=== PATIENT | female | born 1985 | race Caucasian/White ===

== ENCOUNTER 2016-08-18 20:44 | Inpatient (IN) | payer OTHER ==
[~2016-08-18] VITALS: Ht 170.2 cm; Wt 59.9 kg
[~2016-08-18 20:44] MED LIST: DEPA250T2 PO; LEVE500 PO; XANA1TAB6 PO
[2016-08-18 20:45] VITALS: BP 121/77; PULSE 108; RESP 16; TEMP 99.7; O2SAT 97
[2016-08-18] MEDS ORDERED: SODIUM CHLOR 0.9% 1000 ML INJ 1,000 ML IV SCH ×2 (21:17→21:19)
--- NOTE | 2016-08-18 21:23 | PD ---
HPI Chief Complaint: Skin Problem Time Seen by Provider: 21:10 Travel History International Travel<30 days: No Contact w/Intl Traveler<30days: No Traveled to known affect area: No History of Present Illness HPI 31-year-old female to history of IV drug abuse presents for evaluation of fevers , skin redness, cough, congestion. Patient reports that she relapsed and used IV methamphetamines 4 days ago, injecting in her right thigh. Since then she's been having fevers as high as 101, increasing skin redness on the medial right thigh and also developing skin redness and tenderness on the lateral right calf. She does also note cough and congestion over the past 4-5 days. Denies any abdominal pain, dysuria, flank pain. She reports that she used a razor to incise the area on the right thigh where she injected. She has no other complaints at this time. PFSH Past Medical History Asthma: No Depression: Yes Heart Rhythm Problems: No Cancer: No Cardiovascular Problems: Yes High Cholesterol: No Chest Pain: Yes (RIGHT SIDED CHEST PAIN) Congestive Heart Failure: No COPD: No Diminished Hearing: No Endocrine: No Genitourinary: No Musculoskeletal: No Neurologic: Yes Psychiatric: Yes Reproductive: No Respiratory: No Immunizations Current: Yes Seizures: Yes Sleep Apnea: No ?: Not LMP: 07/31/16 : 1 Para: 1 Past Surgical History Abdominal Surgery: Yes (APPENDECTOMY ) Appendectomy: Yes (2006) Other Surgery: Yes Social History Alcohol Use: No (OCC) Tobacco Use: Yes (08/01 PPD) Substance Use: Yes (IV DILAUDID, MORPHINE,OXYCODONE,MARIJUANA) Allergies-Medications (Allergen,Severity, Reaction): Coded Allergies: Tramadol (Unverified Allergy, Severe, SEIZURE, 08/18/16) Tylenol (Verified Allergy, Severe, Hives, 08/18/16) VOMITING *MDRO Multi-Drug Resistant Organism (Unverified Adverse Reaction, Unknown , 08/23/15) MRSA (wound) 07/2014 Reported Meds & Prescriptions Reported Meds & Active Scripts Active Keppra (Levetriacetam) 500 Mg Tab 500 Mg PO BID Depakote 250 mg (Divalproex Sodium) 250 Mg Tab 500 Mg PO BID Reported Xanax 1 mg (Alprazolam) Alprazolam 1 mg Tab 2 Tab PO BID Review of Systems Except as stated in HPI: all other systems reviewed are Neg Physical Exam Narrative GENERAL: Well-developed well-nourished female who appears anxious. She is tachycardic, temperature 99.7. SKIN: Warm and dry. Area of erythema, skin induration on the lateral right calf. There is a small amount of central fluctuance. On the medial right lower thigh there is a 1 cm area of ulceration with purulent drainage, tender to palpation. No petechiae, no purpura. HEAD: Atraumatic. Normocephalic. EYES: Pupils equal and round. No scleral icterus. No injection or drainage. ENT: No nasal bleeding or discharge. Mucous membranes pink and moist. NECK: Trachea midline. No JVD. CARDIOVASCULAR: Regular rate and rhythm. No murmur appreciated. RESPIRATORY: No accessory muscle use. Clear to auscultation. Breath sounds equal bilaterally. GASTROINTESTINAL: Abdomen soft, non-tender, nondistended. Hepatic and splenic margins not palpable. MUSCULOSKELETAL: No obvious deformities. Skin as noted above. NEUROLOGICAL: Awake and alert. No obvious cranial nerve deficits. Motor grossly within normal limits. Normal speech. Data Data Last Documented VS Vital Signs Date Time Temp Pulse Resp B/P Pulse Ox O2 Delivery O2 Flow Rate FiO2 08/19/16 01:25 97 18 08/19/16 01:25 108/61 99 08/18/16 20:45 99.7 Room Air Orders Complete Blood Count With Diff (08/18/16 21:17) Comprehensive Metabolic Panel (08/18/16 21:17) Prothrombin Time / Inr (Pt) (08/18/16 21:17) Act Partial Throm Time (Ptt) (08/18/16 21:17) Lactic Acid Sepsis Protocol (08/18/16 21:17) Influenzae A/B Antigen (08/18/16 21:17) Blood Culture (08/18/16 21:17) Chest, Single Ap (08/18/16 21:17) Iv Access Insert/Monitor (08/18/16 21:17) Wound Culture And Gram Stain (08/18/16 21:17) Ed Urine Pregnancytest Poc (08/18/16 21:17) Sodium Chlor 0.9% 1000 Ml Inj (Ns 1000 M (08/18/16 21:17) Vancomycin Inj (Vancomycin Inj) (08/18/16 21:30) Piperacil-Tazo 3.375 Gm Premix (Zosyn 3. (08/18/16 21:30) Lidocai-Epi 1%-1:100,000 Inj (Xylocaine- (08/18/16 21:30) Sodium Chlor 0.9% 1000 Ml Inj (Ns 1000 M (08/18/16 21:19) Morphine Inj (Morphine Inj) (08/18/16 23:15) Ketorolac Inj (Toradol Inj) (08/18/16 23:15) Potassium Chloride (Kcl) (08/18/16 23:45) Admit Order (Ed Use Only) (08/19/16 01:40) Labs Laboratory Tests Test 08/18/16 22:10 White Blood Count 9.2 TH/MM3 Red Blood Count 4.64 MIL/MM3 Hemoglobin 13.5 GM/DL Hematocrit 39.4 % Mean Corpuscular Volume 84.9 FL Mean Corpuscular Hemoglobin 29.1 PG Mean Corpuscular Hemoglobin 34.3 % Concent Red Cell Distribution Width 13.2 % Platelet Count 374 TH/MM3 Mean Platelet Volume 7.6 FL Neutrophils (%) (Auto) 81.1 % Lymphocytes (%) (Auto) 14.5 % Monocytes (%) (Auto) 3.4 % Eosinophils (%) (Auto) 0.5 % Basophils (%) (Auto) 0.5 % Neutrophils # (Auto) 7.4 TH/MM3 Lymphocytes # (Auto) 1.3 TH/MM3 Monocytes # (Auto) 0.3 TH/MM3 Eosinophils # (Auto) 0.0 TH/MM3 Basophils # (Auto) 0.0 TH/MM3 CBC Comment DIFF FINAL Differential Comment Prothrombin Time 11.1 SEC Prothromb Time International 1.0 RATIO Ratio Activated Partial 30.4 SEC Thromboplast Time Sodium Level 130 MEQ/L Potassium Level 3.4 MEQ/L Chloride Level 95 MEQ/L Carbon Dioxide Level 26.0 MEQ/L Anion Gap 9 MEQ/L Blood Urea Nitrogen 13 MG/DL Creatinine 0.89 MG/DL Estimat Glomerular Filtration 74 ML/MIN Rate Random Glucose 100 MG/DL Lactic Acid Level 0.8 mmol/L Calcium Level 8.5 MG/DL Total Bilirubin 0.6 MG/DL Aspartate Amino Transf 16 U/L (AST/SGOT) Alanine Aminotransferase 21 U/L (ALT/SGPT) Alkaline Phosphatase 94 U/L Total Protein 9.5 GM/DL Albumin 3.4 GM/DL MDM Medical Decision Making Medical Screen Exam Complete: Yes Emergency Medical Condition: Yes Medical Record Reviewed: Yes Interpretation(s) CBC unremarkable CMP sodium 130, potassium 3.4 Influenza antigen negative Chest x-ray negative Differential Diagnosis Cellulitis, pneumonia, influenza, bacteremia, endocarditis Narrative Course 31-year-old female who reports that she injected methamphetamines into her medial right thigh for 5 days ago. Since then she's been having fevers as high as 101, increasing area of skin redness on the right thigh and lateral right calf. She is also had a cough and congestion. On initial examination there is a large degree of cellulitis on the lateral right calf as well as a small area of cellulitis, central ulceration on the medial right thigh. A wound culture was performed. She is also tachycardic with a mildly elevated temperature of 99.7. No murmurs appreciated. Plan is for basic lab work, IV fluids, IV vancomycin and Zosyn have been initiated. Blood cultures, wound culture, chest x-ray have been ordered. Lab work is notable for a sodium of 130, potassium 3.4. At this point and the plan is to admit the patient for IV antibiotic therapy for treatment of cellulitis. She is agreeable. Procedures Procedure Narrative INCISION AND DRAINAGE OF ABSCESS: The area was prepped and was sterilely draped. A subcutaneous wheal of 1% Xylocaine with epinephrine with a total number 5 mL was used to anesthetize the area. The area was properly anesthetized. A number 11scalpel was used to make a1 -cm incision across the area of the abscess. Cultures were obtained. The abscess was drained an irrigated with normal saline. Diagnosis Primary Impression: Cellulitis and abscess of leg Additional Impressions: Abscess IV drug abuse Hyponatremia Tachycardia Admitting Information Admitting Physician Requests: Admit Marcus Ruff Aug 18, 2016 21:23
[2016-08-18] MEDS ORDERED: VANCOMYCIN INJ 1,000 MG in SODIUM CHLOR 0.9% 250 ML INJ 250 ML IV ONE (21:30)
[2016-08-18] MEDS ORDERED: PIPERACIL-TAZO 3.375 GM PREMIX 50 ML IV ONE (21:30)
[2016-08-18] MEDS ORDERED: LIDOCAINE 1%/EPINEPHrine 1:100,000 SOLN 20 ML VIAL INFIL ONE (21:30)
--- NOTE | 2016-08-18 21:42 | RADRPT ---
EXAM DATE/TIME: 08/18/2016 21:27 [facility] COMPARISON: No previous studies available for comparison. INDICATIONS : Cough MEDICAL HISTORY : None. SURGICAL HISTORY : None. ENCOUNTER: Initial ACUITY: 4 - 6 days PAIN SCORE: 4/10 LOCATION: Bilateral chest FINDINGS: A single view of the chest demonstrates the lungs to be symmetrically aerated without evidence of mas s, infiltrate or effusion. The cardiomediastinal contours are unremarkable. Osseous structures are intact. CONCLUSION: No evidence of acute cardiopulmonary disease. Kale Orozco MD on August 18, 2016 at 21:41 Board Certified Radiologist. This report was verified electronically.
[2016-08-18 22:29] LABS: AUTOMATED NEUTROPHIL # 7.4 TH/MM3 (1.8-7.7); BASOPHIL % 0.5 % (0.0-2.0); EOSINOPHIL % 0.5 % (0.0-4.0); HEMATOCRIT 39.4 % (35.0-46.0); HEMO FLAGS DIFF FINAL; LYMPH % 14.5 % (9.0-44.0); LYMPHOCYTE # 1.3 TH/MM3 (1.0-4.8); MEAN CELL VOLUME 84.9 FL (80.0-100.0); MEAN CORPUSCULAR HEMOGLOBIN 29.1 PG (27.0-34.0); MEAN CORPUSCULAR HGB CONC 34.3 % (32.0-36.0); MONO % 3.4 % (0.0-8.0); NEUT % 81.1 % (16.0-70.0); PLATELET COUNT 374 TH/MM3 (150-450); RED BLOOD COUNT 4.64 MIL/MM3 (4.00-5.30); RED CELL DISTRIBUTION WIDTH 13.2 % (11.6-17.2); WHITE BLOOD COUNT 9.2 TH/MM3 (4.0-11.0)
[2016-08-18 22:43] LABS: ANION GAP 9 MEQ/L (5-15); AST (GOT) 16 U/L (15-37); BLOOD UREA NITROGEN 13 MG/DL (7-18); CHLORIDE 95 MEQ/L (98-107); GLOMERULAR FILTRATION RATE 74 ML/MIN (>89); POTASSIUM 3.4 MEQ/L (3.5-5.1); SODIUM (NA) 130 MEQ/L (136-145)
[2016-08-18 22:46] LABS: ALKALINE PHOSPHATASE 94 U/L (45-117); ALT (GPT) 21 U/L (10-53); TOTAL BILIRUBIN ADULT 0.6 MG/DL (0.2-1.0)
[2016-08-18 22:48] LABS: APTT (PATIENT) 30.4 SEC (24.3-30.1); PROTHROMBIN TIME - PATIENT 11.1 SEC (9.8-11.6)
[2016-08-18] MEDS ORDERED: KETOROLAC TROMETHAMINE 30 MG/ML (IVP) VIAL IV PUSH ONE (23:15)
[2016-08-18] MEDS ORDERED: MORPHINE SULFATE 4 MG/ML INJ IV PUSH ONE (23:15)
[2016-08-18] MEDS ORDERED: POTASSIUM CHLORIDE 20 MEQ CONTROLLED RELEASE TAB PO ONE (23:45)
--- NOTE | 2016-08-19 00:58 | PD ---
Physical Exam Date Seen by Provider: Aug 19, 2016 Time Seen by Provider: 00:57 Narrative Patient was initially evaluated by the mid-level provider, please refer to the initial history, physical, diagnostic evaluation, and treatment modality plan. Data Data Last Documented VS Vital Signs Date Time Temp Pulse Resp B/P Pulse Ox O2 Delivery O2 Flow Rate FiO2 08/18/16 20:45 99.7 108 16 121/77 97 Room Air Orders Complete Blood Count With Diff (08/18/16 21:17) Comprehensive Metabolic Panel (08/18/16 21:17) Prothrombin Time / Inr (Pt) (08/18/16 21:17) Act Partial Throm Time (Ptt) (08/18/16 21:17) Lactic Acid Sepsis Protocol (08/18/16 21:17) Influenzae A/B Antigen (08/18/16 21:17) Blood Culture (08/18/16 21:17) Chest, Single Ap (08/18/16 21:17) Iv Access Insert/Monitor (08/18/16 21:17) Wound Culture And Gram Stain (08/18/16 21:17) Ed Urine Pregnancytest Poc (08/18/16 21:17) Sodium Chlor 0.9% 1000 Ml Inj (Ns 1000 M (08/18/16 21:17) Vancomycin Inj (Vancomycin Inj) (08/18/16 21:30) Piperacil-Tazo 3.375 Gm Premix (Zosyn 3. (08/18/16 21:30) Lidocai-Epi 1%-1:100,000 Inj (Xylocaine- (08/18/16 21:30) Sodium Chlor 0.9% 1000 Ml Inj (Ns 1000 M (08/18/16 21:19) Morphine Inj (Morphine Inj) (08/18/16 23:15) Ketorolac Inj (Toradol Inj) (08/18/16 23:15) Potassium Chloride (Kcl) (08/18/16 23:45) Labs Laboratory Tests Test 08/18/16 22:10 White Blood Count 9.2 TH/MM3 Red Blood Count 4.64 MIL/MM3 Hemoglobin 13.5 GM/DL Hematocrit 39.4 % Mean Corpuscular Volume 84.9 FL Mean Corpuscular Hemoglobin 29.1 PG Mean Corpuscular Hemoglobin 34.3 % Concent Red Cell Distribution Width 13.2 % Platelet Count 374 TH/MM3 Mean Platelet Volume 7.6 FL Neutrophils (%) (Auto) 81.1 % Lymphocytes (%) (Auto) 14.5 % Monocytes (%) (Auto) 3.4 % Eosinophils (%) (Auto) 0.5 % Basophils (%) (Auto) 0.5 % Neutrophils # (Auto) 7.4 TH/MM3 Lymphocytes # (Auto) 1.3 TH/MM3 Monocytes # (Auto) 0.3 TH/MM3 Eosinophils # (Auto) 0.0 TH/MM3 Basophils # (Auto) 0.0 TH/MM3 CBC Comment DIFF FINAL Differential Comment Prothrombin Time 11.1 SEC Prothromb Time International 1.0 RATIO Ratio Activated Partial 30.4 SEC Thromboplast Time Sodium Level 130 MEQ/L Potassium Level 3.4 MEQ/L Chloride Level 95 MEQ/L Carbon Dioxide Level 26.0 MEQ/L Anion Gap 9 MEQ/L Blood Urea Nitrogen 13 MG/DL Creatinine 0.89 MG/DL Estimat Glomerular Filtration 74 ML/MIN Rate Random Glucose 100 MG/DL Lactic Acid Level 0.8 mmol/L Calcium Level 8.5 MG/DL Total Bilirubin 0.6 MG/DL Aspartate Amino Transf 16 U/L (AST/SGOT) Alanine Aminotransferase 21 U/L (ALT/SGPT) Alkaline Phosphatase 94 U/L Total Protein 9.5 GM/DL Albumin 3.4 GM/DL [facility] Medical Record Reviewed: Yes Supervised Visit with TASHA: Yes Procedures Procedure Narrative An ultrasound-guided IV was placed in the left upper extremity using a linear probe. I placed a 20-gauge, 1.88 inch, ultrasound-guided IV in the left upper extremity. There is good blood return and the IV flowed easily. The patient tolerated the procedure without difficulty and there was no obvious contraindications. Diagnosis Primary Impression: Cellulitis and abscess of leg Additional Impressions: IV drug abuse Abscess Hyponatremia Tachycardia Sushant Glez MD Aug 19, 2016 00:58
[2016-08-19 01:25] VITALS: BP 108/61; PULSE 89; RESP 18; O2SAT 99
--- NOTE | 2016-08-19 02:16 | HHI.HP ---
[facility] No Primary Care Physician Admission Diagnosis Cellulitis, IVDU, abscess Diagnoses: Chief Complaint: Infection to right outer lower leg and right inner knee Travel History International Travel<30 Days: No Contact w/Intl Traveler <30 Da: No Traveled to Known Affected Are: No History of Present Illness 31-year-old female with a history of seizures but currently not on any medications, and IVDA presented to the ED with complaints of an abscess to the right outer calf and right inner thigh. Patient states 5 days ago she injected meth into her thigh and 2 days ago she had these abscess form on her leg. She lanced open the abscess on her right inner thigh herself in today because she began to have fevers of 101 at home with associated chills. Upon admission temperature 99.7. She states this has happened to her in the past when she has injected meth and she does not do it routinely. She does admit to routinely injecting Dilaudid but states she has never gotten abscesses from it. Patient does have a history of MRSA. She denies any chest pain or shortness of breath. Review of Systems Constitutional: COMPLAINS OF: Fever, Chills Past Family Social History Past Medical History Seizures IVDA Past Surgical History Appendectomy Reported Medications Reported Meds & Active Scripts Active Keppra (Levetriacetam) 500 Mg Tab 500 Mg PO BID Depakote 250 mg (Divalproex Sodium) 250 Mg Tab 500 Mg PO BID Reported Xanax 1 mg (Alprazolam) Alprazolam 1 mg Tab 2 Tab PO BID Allergies: Coded Allergies: Tramadol (Unverified Allergy, Severe, SEIZURE, 08/18/16) Tylenol (Verified Allergy, Severe, Hives, 08/18/16) VOMITING *MDRO Multi-Drug Resistant Organism (Unverified Adverse Reaction, Unknown , 08/23/15) MRSA (wound) 07/2014 Family History Mom: [place] Social History Tobacco use: 12ppd Alcohol use: Denies Illicit drug use: IV Dilaudid Physical Exam Vital Signs Vital Signs Date Time Temp Pulse Resp B/P Pulse Ox O2 Delivery O2 Flow Rate FiO2 08/19/16 01:25 97 18 08/19/16 01:25 89 18 108/61 99 08/18/16 20:45 99.7 108 16 121/77 97 Room Air Physical Exam GENERAL: This is a well-nourished, well-developed patient, in no apparent distress. SKIN: Right inner thigh cellulitis with erythema and purulent drainage. Right outer calf graft was misael, I&D preformed by ER. HEAD: Atraumatic. Normocephalic. EYES: Pupils equal round and reactive. ENT: Nose without bleeding, purulent drainage or septal hematoma. Airway patent. NECK: Trachea midline. No JVD CARDIOVASCULAR: Regular rate and rhythm without murmurs, gallops, or rubs. RESPIRATORY: Clear to auscultation. Breath sounds equal bilaterally. No wheezes , rales, or rhonchi. GASTROINTESTINAL: Abdomen soft, non-tender, nondistended. No guarding. MUSCULOSKELETAL: Extremities without clubbing, cyanosis, or edema. No joint tenderness, effusion, or edema noted. No calf tenderness. NEUROLOGICAL: Awake and alert. Motor and sensory grossly within normal limits. Normal speech. Laboratory Laboratory Tests Test 08/18/16 22:10 White Blood Count 9.2 Red Blood Count 4.64 Hemoglobin 13.5 Hematocrit 39.4 Mean Corpuscular Volume 84.9 Mean Corpuscular Hemoglobin 29.1 Mean Corpuscular Hemoglobin 34.3 Concent Red Cell Distribution Width 13.2 Platelet Count 374 Mean Platelet Volume 7.6 Neutrophils (%) (Auto) 81.1 Lymphocytes (%) (Auto) 14.5 Monocytes (%) (Auto) 3.4 Eosinophils (%) (Auto) 0.5 Basophils (%) (Auto) 0.5 Neutrophils # (Auto) 7.4 Lymphocytes # (Auto) 1.3 Monocytes # (Auto) 0.3 Eosinophils # (Auto) 0.0 Basophils # (Auto) 0.0 CBC Comment DIFF FINAL Differential Comment Prothrombin Time 11.1 Prothromb Time International 1.0 Ratio Activated Partial 30.4 Thromboplast Time Sodium Level 130 Potassium Level 3.4 Chloride Level 95 Carbon Dioxide Level 26.0 Anion Gap 9 Blood Urea Nitrogen 13 Creatinine 0.89 Estimat Glomerular Filtration 74 Rate Random Glucose 100 Lactic Acid Level 0.8 Calcium Level 8.5 Total Bilirubin 0.6 Aspartate Amino Transf 16 (AST/SGOT) Alanine Aminotransferase 21 (ALT/SGPT) Alkaline Phosphatase 94 Total Protein 9.5 Albumin 3.4 Date/Time Procedure Status Source Growth 08/18/16 22:10 Aerobic Blood Culture Received Blood Peripheral Pending 08/18/16 22:10 Anaerobic Blood Culture Received Blood Peripheral Pending 08/18/16 22:00 Influenza Types A,B Antigen (RIK) - Final Complete Nasal Aspirate NEGATIVE FOR FLU A AND B ANTIGEN.... 08/18/16 21:45 Gram Stain Received Wound Leg Pending 08/18/16 21:45 Wound Culture Received Wound Leg Pending Result Diagram: 08/18/16 2210 08/18/162209 Imaging Last Impressions Chest X-Ray 08/18/162116 Signed Impressions: Service Date/Time: July 21:27 - CONCLUSION: No evidence of acute cardiopulmonary disease. Kale Orozco MD Assessment and Plan Problem List: (1) Cellulitis and abscess of leg ICD Code: L02.419 Status: Acute (2) IV drug user ICD Code: F19.90 Status: Chronic Assessment and Plan 31-year-old female with a history of seizures but not currently on any medications and IVDA presented with: Cellulitis and abscess of the leg -I&D of right outer calf abscess performed by ED physician -Vancomycin IV -We will order pain medication as needed. -Blood and wound cultures pending -Contact isolation for history of MRSA IVDA -Encouraged to quit DVT prophylaxis: SCDs [id number] interaction performed in 0145 on 08/19/16. Discussed patient care with Dr. Castro The exam, history, and the medical decision-making described in the above note were completed with the assistance of the mid-level provider. I reviewed and agree with the findings presented. I attest that I had a [id number] encounter with the patient on the same day, and personally performed and documented my assessment and findings in the medical record. The patient is a 31-year-old female IV drug user who relapsed. She developed an abscess on the right lower inner thigh which segments by herself. She developed the much larger abscess on the lateral side of the leg which was draining the emergency room. She has significant associated cellulitis. On exam:GENERAL: Disheveled female in no apparent distress. CARDIOVASCULAR: Normal rate and regular rhythm. Could not appreciate a murmur SKIN: Right inner thigh above the knee there is a dime size ulcer. On the lateral side of the right leg, abscess s/p I&D with large area of cellulitis. RESPIRATORY: Good respiratory efforts. Breath sounds equal and clear to auscultation bilaterally. GASTROINTESTINAL: Abdomen soft, non-tender, non-distended. Normal active bowel sounds MUSCULOSKELETAL: Extremities without cyanosis, or edema. NEURO: Alert & Oriented x4 to person, place, time, situation. Moves all ext x4 PSYCH: Appropriate mood and affect. A/P: Abscess and cellulitis of the right lower extremity in this IV drug user. - Continue vancomycin. Patient has a history of MRSA. - Follow blood cultures and wound cultures. - Plan detailed as above. Discussed Condition With Patient and Dr. Castro Physician Certification 2 Midnight Certification Type: Admission for Inpatient Services Order for Inpatient Services The services are ordered in accordance with Medicare regulations or non- Medicare payer requirements, as applicable. In the case of services not specified as inpatient-only, they are appropriately provided as inpatient services in accordance with the 2-midnight benchmark. Estimated LOS (days): 3 days is the estimated time the patient will need to remain in the hospital, assuming treatment plan goals are met and no additional complications. Post-Hospital Plan: Home Camila Licea Aug 19, 2016 02:16 Carol Castro MD Aug 19, 2016 03:56
[2016-08-19] MEDS ORDERED: NALOXONE HCL 0.4 MG/ML AMP IV PRN (02:30)
[2016-08-19] MEDS ORDERED: SODIUM CHLORIDE 0.9% FLUSH 5 ML FLUSH FLUSH PRN (02:30)
[2016-08-19] MEDS ORDERED: ONDANSETRON HCL 4 MG/2 ML VIAL IVP PRN (02:30)
[2016-08-19] MEDS ORDERED: Vancomycin Consult Pharmacy 1 EA OTHER SCH (02:30)
[2016-08-19 03:57] LABS: AUTOMATED NEUTROPHIL # 6.3 TH/MM3 (1.8-7.7); BASOPHIL # 0.1 TH/MM3 (0-0.2); BASOPHIL % 0.8 % (0.0-2.0); EOSINOPHIL # 0.1 TH/MM3 (0-0.4); EOSINOPHIL % 0.8 % (0.0-4.0); HEMATOCRIT 31.9 % (35.0-46.0); HEMO FLAGS DIFF FINAL; LYMPH % 24.3 % (9.0-44.0); LYMPHOCYTE # 2.4 TH/MM3 (1.0-4.8); MEAN CELL VOLUME 85.7 FL (80.0-100.0); MEAN CORPUSCULAR HEMOGLOBIN 29.2 PG (27.0-34.0); MEAN CORPUSCULAR HGB CONC 34.1 % (32.0-36.0); MONO % 9.2 % (0.0-8.0); NEUT % 64.9 % (16.0-70.0); PLATELET COUNT 303 TH/MM3 (150-450); RED BLOOD COUNT 3.72 MIL/MM3 (4.00-5.30); RED CELL DISTRIBUTION WIDTH 12.7 % (11.6-17.2); WHITE BLOOD COUNT 9.7 TH/MM3 (4.0-11.0)
[2016-08-19] MEDS ORDERED: Vancomycin Consult Pharmacy 1 EA XX SCH (04:00)
[2016-08-19] MEDS ORDERED: DEPA250T2 PO (04:32)
[2016-08-19] MEDS ORDERED: XANA2TAB2 PO (04:32)
[2016-08-19] MEDS ORDERED: LEVE500 PO (04:32)
[2016-08-19] MEDS ORDERED: VANCOMYCIN INJ 1,000 MG in SODIUM CHLOR 0.9% 250 ML INJ 250 ML IV SCH (05:00)
[2016-08-19] MEDS: HEPARIN SODIUM - SQ 10,000 UNITS/ML VIAL SQ SCH ×2 (05:25→17:00)
--- NOTE | 2016-08-19 08:49 | HHI.PR ---
Subjective Remarks had a low grade fever earlier. complaining of pain to the right lower extremity. Objective Vitals Vital Signs Date Time Temp Pulse Resp B/P Pulse Ox O2 Delivery O2 Flow Rate FiO2 08/19/16 01:25 97 18 08/19/16 01:25 89 18 108/61 99 08/18/16 20:45 99.7 108 16 121/77 97 Room Air Result Diagram: 08/19/16 0345 08/19/16 0345 Imaging Last Impressions Chest X-Ray 08/18/167 Signed Impressions: Service Date/Time: July 21:27 - CONCLUSION: No evidence of acute cardiopulmonary disease. Kale Orozco MD Objective Remarks GENERAL: This is a well-nourished, well-developed patient, in no apparent distress. CARDIOVASCULAR: Regular rate and regular rhythm without murmurs, gallops, or rubs. RESPIRATORY: Clear to auscultation. Breath sounds equal bilaterally. No wheezes , rales, or rhonchi. GASTROINTESTINAL: Abdomen soft, non-tender, nondistended. Normal, active bowel sounds MUSCULOSKELETAL: Extremities without clubbing, cyanosis, or edema. NEURO: Alert & Oriented x4 to person, place, time, situation. Moves all ext x4 skin; cellulitis/ abscess of the right inner thigh and right leg Procedures I/R of the right leg abscess- in ER Medications and IVs Current Medications Sodium Chloride 1,000 ml @ 1,000 mls/hr Q1H IV Last administered on 08/19/16 01:11; Start 08/18/16 at 21:17; Stop 08/18/16 at 22:16; Status DC Vancomycin HCl 1000 mg/Sodium Chloride 250 ml @ 250 mls/hr ONCE ONCE IV Last administered on 08/19/16 02:01; Start 08/18/16 at 21:30; Stop 08/18/16 at 22:29 ; Status DC Piperacillin Sod/ Tazobactam Sod (Zosyn 3.375 Gm Premix) 50 ml @ 100 mls/hr ONCE ONCE IV Last administered on 08/19/16 01:11; Start 08/18/16 at 21:30; Stop 08/18/16 at 21:59; Status DC Lidocaine/ Epinephrine 30 ml 30 ml ONCE ONCE INFIL Last administered on 02:02; Start 08/18/16 at 21:30; Stop 08/18/16 at 21:31; Status DC Sodium Chloride (NS 1000 ml Inj) 1,000 ml @ 1,000 mls/hr Q1H IV Last administered on 08/19/16 01:11; Start 08/18/16 at 21:19; Stop 08/18/16 at 22:18 ; Status DC Morphine Sulfate (Morphine Inj) 3 mg ONCE ONCE IV PUSH Last administered on 01:23; Start 08/18/16 at 23:15; Stop 08/18/16 at 23:16; Status DC Ketorolac Tromethamine (Toradol Inj) 30 mg ONCE ONCE IV PUSH Last administered on 08/19/16 01:23; Start 08/18/16 at 23:15; Stop 08/18/16 at 23:16 ; Status DC Potassium Chloride (KCl) 40 meq ONCE ONCE PO Last administered on 08/19/16 02 :02; Start 08/18/16 at 23:45; Stop 08/18/16 at 23:48; Status DC IV Flush (NS Flush) 2 ml UNSCH PRN FLUSH FLUSH AFTER USING IV ACCESS; Start at 02:30 IV Flush (NS Flush) 2 ml BID FLUSH ; Start 08/19/16 at 09:00 Ondansetron HCl (Zofran Inj) 4 mg Q6H PRN IVP NAUSEA OR VOMITING; Start at 02:30 Naloxone HCl 0.4 mg 0.4 mg UNSCH PRN IV SEE LABEL COMMENTS; Start 08/19/16 at 02:30 Pharmacy Profile Note 0 ml @ 0 mls/hr UNSCH OTHER ; Start 08/19/16 at 02:30; Stop 08/19/16 at 04:11; Status DC Pharmacy Profile Note (Vancomycin Consult Pharmacy) 0 ml @ 0 mls/hr UNSCH XX ; Start 08/19/16 at 04:00 Ketorolac Tromethamine 30 mg 30 mg Q6H PRN IVP BREAKTHROUGH PAIN; Start at 04:00 Vancomycin HCl/ Sodium Chloride (Vancomycin Inj/ NS 250 ml Inj) 250 ml @ 250 mls/hr Q12H IV ; Start 08/19/16 at 05:00; Stop 08/19/16 at 05:00; Status DC Heparin Sodium (Porcine) (Heparin Inj) 5,000 units Q12H SQ Last administered on 08/19/16t 05:25; Start 08/19/16 at 05:00 Oxycodone HCl 5 mg 5 mg Q4H PRN PO PAIN GREATER THAN 5; Start 08/19/16 at 04:00 Vancomycin HCl/ Sodium Chloride (Vancomycin Inj/ NS 500 ml Inj) 513 ml @ 250 mls/hr Q18H IV ; Start 08/19/16 at 14:00 Miscellaneous Information SPECIFIC LAB TO BE MARK... ONCE ONCE XX ; Start at 01:45; Stop 08/21/16 at 01:46 A/P Assessment and Plan A/P - cellulitis/ abscess of the right lower extremity with recent IV drug injection- s/p I/D in ER continue with IV Abx and pain control-follow the cultures will consult ID , general surgery and wound care counselled on drug abuse cessation. Leti Mota MD Aug 19, 2016 08:48
[2016-08-19] MEDS: SODIUM CHLORIDE 0.9% FLUSH 5 ML FLUSH FLUSH SCH ×2 (09:00→22:08)
[2016-08-19] MEDS: PIPERACIL-TAZO 3.375 GM PREMIX 50 ML IV SCH ×2 (10:59→19:00)
[2016-08-19 14:48] VITALS: BP 120/64; PULSE 88; RESP 20; TEMP 98.7; O2SAT 100
[2016-08-19] MEDS: DIVALPROEX SODIUM DELAYED RELEASE 250 MG TAB PO SCH ×2 (14:53→21:00)
[2016-08-19] MEDS: levETIRAcetam 500 MG TAB PO SCH ×2 (14:53→22:05)
--- NOTE | 2016-08-19 15:06 | MB ---
cc: RAVEN SWIFT MD, FRANKLYN F. MD DATE OF CONSULTATION: 08/19/2016 REASON FOR CONSULTATION Cellulitis/abscess of the right lower extremity at site of IV drug ejection. HISTORY OF PRESENT ILLNESS This is a 31-year-old white female who was admitted to the hospital with pain and redness and swelling of her right leg at the calf and also at the inner distal thigh. The patient reports that she injected IV drugs into her leg and two days later she developed this swelling and redness. This led to her having difficulty ambulating and because of the significant pain she presented to the emergency department for evaluation. She is reported to have tried to drain the leg with a razor to incise the area where she injected. She also reportedly had temperature elevation with fever of 101 degrees. The patient is noted to have used IV methamphetamines four days ago. She tells me that she tried to inject into the r. leg and felt that she might not have been in a vein and therefore she abandoned the injection and did not make further attempts. She is complaining of pain in the leg and wants increased pain medication. She states that she had some mild chills but she denies other symptoms including abdominal pain, nausea or vomiting. She tells me that she has had several skin lesions pop up on the skin over the past several weeks and that every time she would get a little bump in the skin it turns into a scab, but she at times tries to break the skin to allow the lesions to drain. PAST MEDICAL HISTORY 1. Depression. 2. Seizures. 3. History of appendectomy in 2006. 4. IV drug abuse. ALLERGIES 1. TRAMADOL. 2. TYLENOL. History of MRSA infection of the neck in July 2014. MEDICATIONS 1. Vancomycin. 2. Piperacillin/tazobactam. 3. Oxycodone 5 mg p.r.n. SOCIAL HISTORY The patient smokes half-a-pack of cigarettes a day. IV drug abuse. Use of marijuana, morphine and oxycodone. Denies alcohol. The patient reports that she has been stressed by her ex-boyfriend having of endocarditis a few months ago. FAMILY HISTORY Noncontributory. PHYSICAL EXAMINATION GENERAL: This is a slender well-developed female in no acute distress. She appears anxious. VITAL SIGNS: Temperature 99.7, blood pressure 108/61, respirations 18, heart rate 97. HEENT: Head atraumatic. Extraocular movements grossly intact. Pupils reactive to light without icterus. Oropharynx moist mucosa without lesions. NECK: Supple without adenopathy. LUNGS: Clear breath sounds bilateral. HEART: Regular rate and rhythm. No murmurs, rubs or gallops. ABDOMEN: Bowel sounds present, soft, nontender. RECTAL: Not performed. EXTREMITIES: The right calf is markedly swollen and very tender and has erythema posteriorly where drainage was performed of the calf. The patient also has redness at the inner distal right thigh and is tender on palpation. She also has multiple excoriated lesions of the extremities including the arms. SKIN: Significant for multiple excoriated lesions. No discrete rash. NEUROLOGIC: Nonfocal. PSYCHIATRIC: The patient appears very anxious and irritable. LABORATORY DATA WBC 9.7, platelets 303, hemoglobin 10.9, 64% neutrophils, 24% lymphocytes, 9% monocytes. Creatinine 0.7, BUN 8, sodium 139. Liver function tests within normal limits. IMPRESSION 1. Abscess of the right calf. 2. Sepsis indicated by fever, elevated heart rate, in patient with abscess secondary to IV drug use. 3. History of MRSA. RECOMMENDATIONS 1. Continue vancomycin. 2. Continue piperacillin/tazobactam. 3. Monitor clinical status. 4. Monitor the cultures for adjustment of antibiotics. Thank you for this consultation. The patient's progress will be monitored and further recommendations will be given on followup. Steve Barrera MD FD/SANDRA /2:03 PM /2:51 PM JOSIAS
[2016-08-19] MEDS: ALPRAZolam 1 MG TAB PO PRN (16:00)
[2016-08-19] MEDS: VANCOMYCIN INJ 1,300 MG in SODIUM CHLORID 0.9% 500 ML INJ 500 ML IV SCH (16:00)
[2016-08-19] MEDS: KETOROLAC TROMETHAMINE 30 MG/ML (IVP) VIAL IVP PRN (16:01)
--- NOTE | 2016-08-19 17:34 | PD.CAR.PN ---
CVT Progress Note Subjective/Hospital Course: Patient will multiple abscesses one on the right lower leg one of the right upper leg as a result of the injection of IV drugs or drink attempted injection of the same. Patient the had those abscesses now drained and packing is in place Cellulitis surrounding it but no fluctuance This is adequate drainage and packing will be removed tomorrow As the antibiotics take effect this may shrink down to nothing or patient may form an abscess in the area that will be fluctuant and drainable little more Right now no surgeries required Objective: Vital Signs Date Time Temp Pulse Resp B/P Pulse Ox O2 Delivery O2 Flow Rate FiO2 08/19/16 16:00 18 08/19/16 14:48 98.7 88 20 120/64 100 Room Air 08/19/16 01:25 97 18 08/19/16 01:25 89 18 108/61 99 08/18/16 20:45 99.7 108 16 121/77 97 Room Air Result Diagram: 08/19/16 0345 08/19/16 0345 Sourav Caal MD Aug 19, 2016 17:34
[2016-08-19 18:00] VITALS: BP 99/55; PULSE 77; RESP 18; TEMP 98; O2SAT 93
[2016-08-19 20:00] VITALS: BP 92/54; PULSE 80; RESP 16; TEMP 98; O2SAT 99
[2016-08-19 20:15] VITALS: PULSE 59
[2016-08-20] VITALS: BP 115/74; PULSE 96; RESP 16; TEMP 97.7; O2SAT 99
[2016-08-20] MEDS: PIPERACIL-TAZO 3.375 GM PREMIX 50 ML IV SCH ×3 (03:00→17:17)
[2016-08-20 04:00] VITALS: BP 120/56; PULSE 92; RESP 17; TEMP 97.6; O2SAT 97
[2016-08-20] MEDS: HEPARIN SODIUM - SQ 10,000 UNITS/ML VIAL SQ SCH ×2 (05:00→17:00)
[2016-08-20 07:23] LABS: AUTOMATED NEUTROPHIL # 2.1 TH/MM3 (1.8-7.7); BASOPHIL % 0.9 % (0.0-2.0); EOSINOPHIL # 0.2 TH/MM3 (0-0.4); EOSINOPHIL % 3.3 % (0.0-4.0); HEMATOCRIT 37.4 % (35.0-46.0); HEMO FLAGS DIFF FINAL; LYMPH % 45.1 % (9.0-44.0); LYMPHOCYTE # 2.2 TH/MM3 (1.0-4.8); MEAN CELL VOLUME 86.6 FL (80.0-100.0); MEAN CORPUSCULAR HEMOGLOBIN 28.7 PG (27.0-34.0); MEAN CORPUSCULAR HGB CONC 33.1 % (32.0-36.0); MONO % 8.6 % (0.0-8.0); NEUT % 42.1 % (16.0-70.0); PLATELET COUNT 343 TH/MM3 (150-450); RED BLOOD COUNT 4.32 MIL/MM3 (4.00-5.30); RED CELL DISTRIBUTION WIDTH 13.1 % (11.6-17.2); WHITE BLOOD COUNT 4.9 TH/MM3 (4.0-11.0)
[2016-08-20 07:42] LABS: BICARBONATE 28.1 MEQ/L (21.0-32.0); POTASSIUM 4.5 MEQ/L (3.5-5.1)
[2016-08-20 08:00] VITALS: BP 123/83; PULSE 101; PULSE 91; RESP 16; TEMP 98; O2SAT 100
[2016-08-20] MEDS: ALPRAZolam 1 MG TAB PO PRN ×2 (08:37→14:54)
[2016-08-20] MEDS: DIVALPROEX SODIUM DELAYED RELEASE 250 MG TAB PO SCH ×2 (08:37→21:42)
[2016-08-20] MEDS: levETIRAcetam 500 MG TAB PO SCH ×2 (08:37→21:42)
[2016-08-20] MEDS: SODIUM CHLORIDE 0.9% FLUSH 5 ML FLUSH FLUSH SCH ×2 (08:37→21:00)
[2016-08-20] MEDS: VANCOMYCIN INJ 1,300 MG in SODIUM CHLORID 0.9% 500 ML INJ 500 ML IV SCH (08:37)
--- NOTE | 2016-08-20 11:21 | HHI.PR ---
Subjective Remarks complaining of pain to the right leg. afebrile. d/w the RN. Objective Vitals Vital Signs Date Time Temp Pulse Resp B/P Pulse Ox O2 Delivery O2 Flow Rate FiO2 08/20/16 08:00 98.0 101 16 123/83 100 08/20/16 08:00 91 08/20/16 04:00 97.6 92 17 120/56 97 08/20/16 00:00 97.7 96 16 115/74 99 08/19/16 20:15 59 08/19/16 20:00 98.0 80 16 92/54 99 08/19/16 18:00 98.0 77 18 99/55 93 08/19/16 16:00 18 08/19/16 14:48 98.7 88 20 120/64 100 Room Air I/O 08/19/16 08/19/16 08/19/16 08/20/16 08/20/16 08/20/16 07:00 15:00 23:00 07:00 15:00 23:00 Intake Total 120 ml 980 ml 370 ml Balance 120 ml 980 ml 370 ml Intake Oral 120 ml 480 ml 320 ml IV Total 500 ml 50 ml # Voids 2 4 # Bowel Movements 1 Result Diagram: 08/20/16 0559 08/20/1659 Imaging Last Impressions Chest X-Ray 08/18/162116 Signed Impressions: Service Date/Time: July 21:27 - CONCLUSION: No evidence of acute cardiopulmonary disease. Kale Orozco MD Objective Remarks GENERAL: This is a well-nourished, well-developed patient, in no apparent distress. CARDIOVASCULAR: Regular rate and regular rhythm without murmurs, gallops, or rubs. RESPIRATORY: Clear to auscultation. Breath sounds equal bilaterally. No wheezes , rales, or rhonchi. GASTROINTESTINAL: Abdomen soft, non-tender, nondistended. Normal, active bowel sounds MUSCULOSKELETAL: Extremities without clubbing, cyanosis, or edema. NEURO: Alert & Oriented x4 to person, place, time, situation. Moves all ext x4 skin; cellulitis/ abscess of the right inner thigh and right leg- seems to be improving Procedures I/R of the right leg abscess- in ER Medications and IVs Current Medications Sodium Chloride 1,000 ml @ 1,000 mls/hr Q1H IV Last administered on 08/19/16 01:11; Start 08/18/16 at 21:17; Stop 08/18/16 at 22:16; Status DC Vancomycin HCl 1000 mg/Sodium Chloride 250 ml @ 250 mls/hr ONCE ONCE IV Last administered on 08/19/16 02:01; Start 08/18/16 at 21:30; Stop 08/18/16 at 22:29 ; Status DC Piperacillin Sod/ Tazobactam Sod (Zosyn 3.375 Gm Premix) 50 ml @ 100 mls/hr ONCE ONCE IV Last administered on 08/19/16 01:11; Start 08/18/16 at 21:30; Stop 08/18/16 at 21:59; Status DC Lidocaine/ Epinephrine 30 ml 30 ml ONCE ONCE INFIL Last administered on 02:02; Start 08/18/16 at 21:30; Stop 08/18/16 at 21:31; Status DC Sodium Chloride (NS 1000 ml Inj) 1,000 ml @ 1,000 mls/hr Q1H IV Last administered on 08/19/16 01:11; Start 08/18/16 at 21:19; Stop 08/18/16 at 22:18 ; Status DC Morphine Sulfate (Morphine Inj) 3 mg ONCE ONCE IV PUSH Last administered on 01:23; Start 08/18/16 at 23:15; Stop 08/18/16 at 23:16; Status DC Ketorolac Tromethamine (Toradol Inj) 30 mg ONCE ONCE IV PUSH Last administered on 08/19/16 01:23; Start 08/18/16 at 23:15; Stop 08/18/16 at 23:16 ; Status DC Potassium Chloride (KCl) 40 meq ONCE ONCE PO Last administered on 08/19/16 02 :02; Start 08/18/16 at 23:45; Stop 08/18/16 at 23:48; Status DC IV Flush (NS Flush) 2 ml UNSCH PRN FLUSH FLUSH AFTER USING IV ACCESS; Start at 02:30 IV Flush (NS Flush) 2 ml BID FLUSH Last administered on 08/20/16 08:37; Start 08/19/16 at 09:00 Ondansetron HCl (Zofran Inj) 4 mg Q6H PRN IVP NAUSEA OR VOMITING; Start at 02:30 Naloxone HCl 0.4 mg 0.4 mg UNSCH PRN IV SEE LABEL COMMENTS; Start 08/19/16 at 02:30 Pharmacy Profile Note 0 ml @ 0 mls/hr UNSCH OTHER ; Start 08/19/16 at 02:30; Stop 08/19/16 at 04:11; Status DC Pharmacy Profile Note (Vancomycin Consult Pharmacy) 0 ml @ 0 mls/hr UNSCH XX ; Start 08/19/16 at 04:00 Ketorolac Tromethamine 30 mg 30 mg Q6H PRN IVP BREAKTHROUGH PAIN Last administered on 08/19/16 16:01; Start 08/19/16 at 04:00 Vancomycin HCl/ Sodium Chloride (Vancomycin Inj/ NS 250 ml Inj) 250 ml @ 250 mls/hr Q12H IV ; Start 08/19/16 at 05:00; Stop 08/19/16 at 05:00; Status DC Heparin Sodium (Porcine) (Heparin Inj) 5,000 units Q12H SQ Last administered on 08/19/16 05:25; Start 08/19/16 at 05:00 Oxycodone HCl 5 mg 5 mg Q4H PRN PO PAIN GREATER THAN 5 Last administered on 08:38; Start 08/19/16 at 04:00 Vancomycin HCl/ Sodium Chloride (Vancomycin Inj/ NS 500 ml Inj) 513 ml @ 250 mls/hr Q18H IV Last administered on 08/20/16 08:37; Start 08/19/16 at 14:00 Miscellaneous Information SPECIFIC LAB TO BE ... ONCE ONCE XX ; Start at 01:45; Stop 08/21/16 at 01:46 Piperacillin Sod/ Tazobactam Sod (Zosyn 3.375 Gm Premix) 50 ml @ 100 mls/hr Q8H IV Last administered on 08/20/16 03:00; Start 08/19/16 at 11:00 Alprazolam (Xanax) 2 mg BID PRN PO ANXIETY Last administered on 08/20/16 08:37 ; Start 08/19/16 at 11:45 Divalproex Sodium (Depakote Dr) 250 mg BID PO Last administered on 08/20/16 08 :37; Start 08/19/16 at 11:45 Levetriacetam (Keppra) 500 mg BID PO Last administered on 08/20/16 08:37; Start 08/19/16 at 11:45 A/P Assessment and Plan A/P - cellulitis/ abscess of the right lower extremity with recent IV drug injection- s/p I/D in ER continue with IV Abx and pain control-wound culture with staph aureus and strep. surgery and ID evaluation appreciated- wound care consulted. counselled on drug abuse cessation. Leti Mota MD Aug 20, 2016 11:21
[2016-08-20] MEDS: KETOROLAC TROMETHAMINE 30 MG/ML (IVP) VIAL IVP PRN (11:37)
[2016-08-20 12:00] VITALS: BP 114/71; PULSE 87; RESP 20; TEMP 97.7; O2SAT 100
--- NOTE | 2016-08-20 14:09 | PD.CAR.PN ---
CVT Progress Note Subjective/Hospital Course: Patient will multiple abscesses one on the right lower leg one of the right upper leg as a result of the injection of IV drugs or drink attempted injection of the same. Patient the had those abscesses now drained and packing is in place Cellulitis surrounding it but no fluctuance This is adequate drainage and packing will be removed tomorrow As the antibiotics take effect this may shrink down to nothing or patient may form an abscess in the area that will be fluctuant and drainable little more Right now no surgeries required 08/20/16 Today packing to be removed in wound for strict soap and water twice a day Dressed dry There is no fluctuance at this point and cellulitis is slowly resolving Objective: Vital Signs Date Time Temp Pulse Resp B/P Pulse Ox O2 Delivery O2 Flow Rate FiO2 08/20/16 12:00 97.7 87 20 114/71 100 08/20/16 08:00 98.0 101 16 123/83 100 08/20/16 08:00 91 08/20/16 04:00 97.6 92 17 120/56 97 08/20/16 00:00 97.7 96 16 115/74 99 08/19/16 20:15 59 08/19/16 20:00 98.0 80 16 92/54 99 08/19/16 18:00 98.0 77 18 99/55 93 08/19/16 16:00 18 08/19/16 14:48 98.7 88 20 120/64 100 Room Air Labs: Laboratory Tests Test 08/20/16 05:59 White Blood Count 4.9 TH/MM3 (4.0-11.0) Red Blood Count 4.32 MIL/MM3 (4.00-5.30) Hemoglobin 12.4 GM/DL (11.6-15.3) Hematocrit 37.4 % (35.0-46.0) Mean Corpuscular Volume 86.6 FL (80.0-100.0) Mean Corpuscular Hemoglobin 28.7 PG (27.0-34.0) Mean Corpuscular Hemoglobin 33.1 % Concent (32.0-36.0) Red Cell Distribution Width 13.1 % (11.6-17.2) Platelet Count 343 TH/MM3 (150-450) Mean Platelet Volume 7.7 FL (7.0-11.0) Neutrophils (%) (Auto) 42.1 % (16.0-70.0) Lymphocytes (%) (Auto) 45.1 % (9.0-44.0) Monocytes (%) (Auto) 8.6 % (0.0-8.0) Eosinophils (%) (Auto) 3.3 % (0.0-4.0) Basophils (%) (Auto) 0.9 % (0.0-2.0) Neutrophils # (Auto) 2.1 TH/MM3 (1.8-7.7) Lymphocytes # (Auto) 2.2 TH/MM3 (1.0-4.8) Monocytes # (Auto) 0.4 TH/MM3 (0-0.9) Eosinophils # (Auto) 0.2 TH/MM3 (0-0.4) Basophils # (Auto) 0.0 TH/MM3 (0-0.2) CBC Comment DIFF FINAL Differential Comment Sodium Level 138 MEQ/L (136-145) Potassium Level 4.5 MEQ/L (3.5-5.1) Chloride Level 103 MEQ/L (98-107) Carbon Dioxide Level 28.1 MEQ/L (21.0-32.0) Anion Gap 7 MEQ/L (5-15) Blood Urea Nitrogen 16 MG/DL (7-18) Creatinine 0.85 MG/DL (0.50-1.00) Estimat Glomerular Filtration 78 ML/MIN (>89) Rate Random Glucose 94 MG/DL (74-106) Calcium Level 9.0 MG/DL (8.5-10.1) Result Diagram: 08/20/16 0559 08/20/16 0559 Sourav Caal MD Aug 20, 2016 14:09
[2016-08-20 16:00] VITALS: BP 104/68; PULSE 79; RESP 18; TEMP 97.4; O2SAT 100
[2016-08-20 20:00] VITALS: BP 119/74; PULSE 85; RESP 17; TEMP 97.1; O2SAT 100
[2016-08-21] VITALS: BP 96/52; PULSE 81; RESP 16; TEMP 97.3; O2SAT 100
[2016-08-21] MEDS ORDERED: PHARMACY ORDERED LAB XX ONE (01:45)
[2016-08-21] MEDS: ALPRAZolam 1 MG TAB PO PRN ×3 (01:57→21:19)
[2016-08-21] MEDS: VANCOMYCIN INJ 1,300 MG in SODIUM CHLORID 0.9% 500 ML INJ 500 ML IV SCH (02:00)
[2016-08-21] MEDS: PIPERACIL-TAZO 3.375 GM PREMIX 50 ML IV SCH (03:00)
[2016-08-21 04:00] VITALS: BP 120/76; PULSE 102; RESP 17; TEMP 97.8; O2SAT 100
[2016-08-21] MEDS: HEPARIN SODIUM - SQ 10,000 UNITS/ML VIAL SQ SCH ×2 (05:00→17:22)
[2016-08-21 08:00] VITALS: BP 114/73; PULSE 100; RESP 18; TEMP 97.9; O2SAT 100
[2016-08-21] MEDS: metroNIDAZOLE 500 MG TAB PO SCH ×3 (08:56→21:19)
[2016-08-21] MEDS: DIVALPROEX SODIUM DELAYED RELEASE 250 MG TAB PO SCH ×2 (08:56→21:19)
[2016-08-21] MEDS: levETIRAcetam 500 MG TAB PO SCH ×2 (08:56→21:19)
[2016-08-21] MEDS: cefTRIAXone INJ 1,000 MG in SODIUM CHLORIDE 0.9% INJ 100 ML IV SCH (08:56)
[2016-08-21] MEDS: SODIUM CHLORIDE 0.9% FLUSH 5 ML FLUSH FLUSH SCH ×2 (08:57→21:23)
--- NOTE | 2016-08-21 09:59 | HHI.PR ---
Subjective Remarks in no distress. although looked comfortable, kept asking for IV narcotics. no fever. d/w the RN. Objective Vitals Vital Signs Date Time Temp Pulse Resp B/P Pulse Ox O2 Delivery O2 Flow Rate FiO2 08/21/16 08:00 97.9 100 18 114/73 100 08/21/16 04:00 97.8 102 17 120/76 100 08/21/16 00:00 97.3 81 16 96/52 100 08/20/16 20:00 97.1 85 17 119/74 100 08/20/16 16:00 97.4 79 18 104/68 100 08/20/16 12:00 97.7 87 20 114/71 100 I/O 08/20/16 08/20/16 08/20/16 08/21/16 08/21/16 08/21/16 07:00 15:00 23:00 07:00 15:00 23:00 Intake Total 370 ml 1320 ml 320 ml 280 ml Balance 370 ml 1320 ml 320 ml 280 ml Intake Oral 320 ml 720 ml 320 ml 280 ml IV Total 50 ml 600 ml # Voids 4 3 0 2 # Bowel Movements 1 1 Result Diagram: 08/20/16 0559 08/20/16 0559 Imaging Last Impressions Chest X-Ray 08/18/162116 Signed Impressions: Service Date/Time: July 21:27 - CONCLUSION: No evidence of acute cardiopulmonary disease. Kale Orozco MD Objective Remarks GENERAL: This is a well-nourished, well-developed patient, in no apparent distress. CARDIOVASCULAR: Regular rate and regular rhythm without murmurs, gallops, or rubs. RESPIRATORY: Clear to auscultation. Breath sounds equal bilaterally. No wheezes , rales, or rhonchi. GASTROINTESTINAL: Abdomen soft, non-tender, nondistended. Normal, active bowel sounds MUSCULOSKELETAL: swelling of the right leg NEURO: Alert & Oriented x4 to person, place, time, situation. Moves all ext x4 skin; cellulitis/ abscess of the right inner thigh and right leg- Procedures I/R of the right leg abscess- in ER Medications and IVs Current Medications Sodium Chloride 1,000 ml @ 1,000 mls/hr Q1H IV Last administered on 08/19/16t 01:11; Start 08/18/16 at 21:17; Stop 08/18/16 at 22:16; Status DC Vancomycin HCl 1000 mg/Sodium Chloride 250 ml @ 250 mls/hr ONCE ONCE IV Last administered on 08/19/16 02:01; Start 08/18/16 at 21:30; Stop 08/18/16 at 22:29 ; Status DC Piperacillin Sod/ Tazobactam Sod (Zosyn 3.375 Gm Premix) 50 ml @ 100 mls/hr ONCE ONCE IV Last administered on 08/19/16 01:11; Start 08/18/16 at 21:30; Stop 08/18/16 at 21:59; Status DC Lidocaine/ Epinephrine 30 ml 30 ml ONCE ONCE INFIL Last administered on 02:02; Start 08/18/16 at 21:30; Stop 08/18/16 at 21:31; Status DC Sodium Chloride (NS 1000 ml Inj) 1,000 ml @ 1,000 mls/hr Q1H IV Last administered on 08/19/16 01:11; Start 08/18/16 at 21:19; Stop 08/18/16 at 22:18 ; Status DC Morphine Sulfate (Morphine Inj) 3 mg ONCE ONCE IV PUSH Last administered on 01:23; Start 08/18/16 at 23:15; Stop 08/18/16 at 23:16; Status DC Ketorolac Tromethamine (Toradol Inj) 30 mg ONCE ONCE IV PUSH Last administered on 08/19/16 01:23; Start 08/18/16 at 23:15; Stop 08/18/16 at 23:16 ; Status DC Potassium Chloride (KCl) 40 meq ONCE ONCE PO Last administered on 08/19/16 02 :02; Start 08/18/16 at 23:45; Stop 08/18/16 at 23:48; Status DC IV Flush (NS Flush) 2 ml UNSCH PRN FLUSH FLUSH AFTER USING IV ACCESS; Start at 02:30 IV Flush (NS Flush) 2 ml BID FLUSH Last administered on 08/21/16 08:57; Start 08/19/16 at 09:00 Ondansetron HCl (Zofran Inj) 4 mg Q6H PRN IVP NAUSEA OR VOMITING; Start at 02:30 Naloxone HCl 0.4 mg 0.4 mg UNSCH PRN IV SEE LABEL COMMENTS; Start 08/19/16 at 02:30 Pharmacy Profile Note 0 ml @ 0 mls/hr UNSCH OTHER ; Start 08/19/16 at 02:30; Stop 08/19/16 at 04:11; Status DC Pharmacy Profile Note (Vancomycin Consult Pharmacy) 0 ml @ 0 mls/hr UNSCH XX ; Start 08/19/16 at 04:00; Stop 08/21/16 at 08:39; Status DC Ketorolac Tromethamine 30 mg 30 mg Q6H PRN IVP BREAKTHROUGH PAIN Last administered on 08/20/16 11:37; Start 08/19/16 at 04:00 Vancomycin HCl/ Sodium Chloride (Vancomycin Inj/ NS 250 ml Inj) 250 ml @ 250 mls/hr Q12H IV ; Start 08/19/16 at 05:00; Stop 08/19/16 at 05:00; Status DC Heparin Sodium (Porcine) (Heparin Inj) 5,000 units Q12H SQ Last administered on 08/19/16 05:25; Start 08/19/16 at 05:00 Oxycodone HCl 5 mg 5 mg Q4H PRN PO PAIN 4-6 Last administered on 08/20/16 08: 38; Start 08/19/16 at 04:00 Vancomycin HCl/ Sodium Chloride (Vancomycin Inj/ NS 500 ml Inj) 513 ml @ 250 mls/hr Q18H IV Last administered on 08/20/16 08:37; Start 08/19/16 at 14:00; Stop 08/21/16 at 08:39; Status DC Miscellaneous Information SPECIFIC LAB TO BE MARK... ONCE ONCE XX ; Start at 01:45; Stop 08/21/16 at 01:46; Status DC Piperacillin Sod/ Tazobactam Sod (Zosyn 3.375 Gm Premix) 50 ml @ 100 mls/hr Q8H IV Last administered on 08/20/16 17:17; Start 08/19/16 at 11:00; Stop at 08:39; Status DC Alprazolam (Xanax) 2 mg BID PRN PO ANXIETY Last administered on 08/20/16 08:37 ; Start 08/19/16 at 11:45; Stop 08/20/16 at 13:27; Status DC Divalproex Sodium (Depakote Dr) 250 mg BID PO Last administered on 08/21/16 08 :56; Start 08/19/16 at 11:45 Levetriacetam (Keppra) 500 mg BID PO Last administered on 08/21/16 08:56; Start 08/19/16 at 11:45 Oxycodone HCl (Roxicodone) 10 mg Q4H PRN PO PAIN 7-10 Last administered on 08/21 06:33; Start 08/20/16 at 11:30 Alprazolam 2 mg 2 mg TID PRN PO ANXIETY Last administered on 08/21/16 01:57; Start 08/20/16 at 13:30 Ceftriaxone Sodium/Sodium Chloride (Rocephin Inj/NS Inj) 100 ml @ 200 mls/hr Q24H IV Last administered on 08/21/16 08:56; Start 08/21/16 at 09:00 Metronidazole (Flagyl) 500 mg Q8HR PO Last administered on 08/21/16 08:56; Start 08/21/16 at 08:45 A/P Assessment and Plan A/P - cellulitis/ abscess of the right lower extremity with recent IV drug injection- s/p I/D in ER wound culture with MSSA and strep.- continue with antibiotics per ID- continue with pain control- suspect drug-seeking behavior. venous doppler of the right lower extremity. surgery and ID following- wound care consulted. counselled on drug abuse cessation. Leti Mota MD Aug 21, 2016 09:59
[2016-08-21 12:00] VITALS: BP 115/71; PULSE 86; RESP 18; TEMP 98; O2SAT 100
[2016-08-21 16:00] VITALS: BP 132/78; PULSE 85; RESP 18; TEMP 98; O2SAT 97
[2016-08-21 20:00] VITALS: BP 120/82; PULSE 99; RESP 17; TEMP 97.1; O2SAT 100
[2016-08-22] VITALS (7 sets, daily range): BP systolic 100–127; BP diastolic 57–84; PULSE 67–120; RESP 15–20; TEMP 97.2–97.7; O2SAT 98–100
[2016-08-22] MEDS: HEPARIN SODIUM - SQ 10,000 UNITS/ML VIAL SQ SCH ×2 (05:00→16:15)
[2016-08-22] MEDS: ALPRAZolam 1 MG TAB PO PRN ×3 (06:40→23:45)
[2016-08-22] MEDS: metroNIDAZOLE 500 MG TAB PO SCH ×3 (06:40→22:18)
[2016-08-22] MEDS: levETIRAcetam 500 MG TAB PO SCH ×2 (08:35→22:17)
[2016-08-22] MEDS: cefTRIAXone INJ 1,000 MG in SODIUM CHLORIDE 0.9% INJ 100 ML IV SCH (08:35)
[2016-08-22] MEDS: SODIUM CHLORIDE 0.9% FLUSH 5 ML FLUSH FLUSH SCH ×2 (08:35→22:18)
[2016-08-22] MEDS: DIVALPROEX SODIUM DELAYED RELEASE 250 MG TAB PO SCH ×2 (08:35→22:17)
--- NOTE | 2016-08-22 09:56 | HHI.PR ---
Subjective Remarks in no distress. no fever. complaining of pain to the right leg but the RN said that she found a syringe in her bag. Objective Vitals Vital Signs Date Time Temp Pulse Resp B/P Pulse Ox O2 Delivery O2 Flow Rate FiO2 08/22/16 04:00 97.6 98 15 127/84 98 08/22/16 00:00 97.7 84 16 100/57 98 08/21/16 20:00 97.1 99 17 120/82 100 08/21/16 16:00 98.0 85 18 132/78 97 08/21/16 12:00 98.0 86 18 115/71 100 I/O 08/21/16 08/21/16 08/21/16 08/22/16 08/22/16 08/22/16 07:00 15:00 23:00 07:00 15:00 23:00 Intake Total 280 ml 720 ml 240 ml 240 ml Balance 280 ml 720 ml 240 ml 240 ml Intake Oral 280 ml 720 ml 240 ml 240 ml # Voids 2 3 1 3 # Bowel Movements 0 1 Result Diagram: 08/20/1659 08/20/1659 Imaging Last Impressions Chest X-Ray 08/18/162116 Signed Impressions: Service Date/Time: July 21:27 - CONCLUSION: No evidence of acute cardiopulmonary disease. Kale Orozco MD Objective Remarks GENERAL: This is a well-nourished, well-developed patient, in no apparent distress. CARDIOVASCULAR: Regular rate and regular rhythm without murmurs, gallops, or rubs. RESPIRATORY: Clear to auscultation. Breath sounds equal bilaterally. No wheezes , rales, or rhonchi. GASTROINTESTINAL: Abdomen soft, non-tender, nondistended. Normal, active bowel sounds MUSCULOSKELETAL: swelling of the right leg NEURO: Alert & Oriented x4 to person, place, time, situation. Moves all ext x4 skin; cellulitis/ abscess of the right inner thigh and right leg- Procedures I/R of the right leg abscess- in ER Medications and IVs Current Medications Sodium Chloride 1,000 ml @ 1,000 mls/hr Q1H IV Last administered on 08/19/16t 01:11; Start 08/18/16 at 21:17; Stop 08/18/16 at 22:16; Status DC Vancomycin HCl 1000 mg/Sodium Chloride 250 ml @ 250 mls/hr ONCE ONCE IV Last administered on 08/19/16 02:01; Start 08/18/16 at 21:30; Stop 08/18/16 at 22:29 ; Status DC Piperacillin Sod/ Tazobactam Sod (Zosyn 3.375 Gm Premix) 50 ml @ 100 mls/hr ONCE ONCE IV Last administered on 08/19/16 01:11; Start 08/18/16 at 21:30; Stop 08/18/16 at 21:59; Status DC Lidocaine/ Epinephrine 30 ml 30 ml ONCE ONCE INFIL Last administered on 02:02; Start 08/18/16 at 21:30; Stop 08/18/16 at 21:31; Status DC Sodium Chloride (NS 1000 ml Inj) 1,000 ml @ 1,000 mls/hr Q1H IV Last administered on 08/19/16 01:11; Start 08/18/16 at 21:19; Stop 08/18/16 at 22:18 ; Status DC Morphine Sulfate (Morphine Inj) 3 mg ONCE ONCE IV PUSH Last administered on 01:23; Start 08/18/16 at 23:15; Stop 08/18/16 at 23:16; Status DC Ketorolac Tromethamine (Toradol Inj) 30 mg ONCE ONCE IV PUSH Last administered on 08/19/16 01:23; Start 08/18/16 at 23:15; Stop 08/18/16 at 23:16 ; Status DC Potassium Chloride (KCl) 40 meq ONCE ONCE PO Last administered on 08/19/16 02 :02; Start 08/18/16 at 23:45; Stop 08/18/16 at 23:48; Status DC IV Flush (NS Flush) 2 ml UNSCH PRN FLUSH FLUSH AFTER USING IV ACCESS; Start at 02:30 IV Flush (NS Flush) 2 ml BID FLUSH Last administered on 08/22/16 08:35; Start 08/19/16 at 09:00 Ondansetron HCl (Zofran Inj) 4 mg Q6H PRN IVP NAUSEA OR VOMITING; Start at 02:30 Naloxone HCl 0.4 mg 0.4 mg UNSCH PRN IV SEE LABEL COMMENTS; Start 08/19/16 at 02:30 Pharmacy Profile Note 0 ml @ 0 mls/hr UNSCH OTHER ; Start 08/19/16 at 02:30; Stop 08/19/16 at 04:11; Status DC Pharmacy Profile Note (Vancomycin Consult Pharmacy) 0 ml @ 0 mls/hr UNSCH XX ; Start 08/19/16 at 04:00; Stop 08/21/16 at 08:39; Status DC Ketorolac Tromethamine 30 mg 30 mg Q6H PRN IVP BREAKTHROUGH PAIN Last administered on 08/20/16 11:37; Start 08/19/16 at 04:00 Vancomycin HCl/ Sodium Chloride (Vancomycin Inj/ NS 250 ml Inj) 250 ml @ 250 mls/hr Q12H IV ; Start 08/19/16 at 05:00; Stop 08/19/16 at 05:00; Status DC Heparin Sodium (Porcine) (Heparin Inj) 5,000 units Q12H SQ Last administered on 08/19/16 05:25; Start 08/19/16 at 05:00 Oxycodone HCl 5 mg 5 mg Q4H PRN PO PAIN 4-6 Last administered on 08/20/16 08: 38; Start 08/19/16 at 04:00 Vancomycin HCl/ Sodium Chloride (Vancomycin Inj/ NS 500 ml Inj) 513 ml @ 250 mls/hr Q18H IV Last administered on 08/20/16 08:37; Start 08/19/16 at 14:00; Stop 08/21/16 at 08:39; Status DC Miscellaneous Information SPECIFIC LAB TO BE MARK... ONCE ONCE XX ; Start at 01:45; Stop 08/21/16 at 01:46; Status DC Piperacillin Sod/ Tazobactam Sod (Zosyn 3.375 Gm Premix) 50 ml @ 100 mls/hr Q8H IV Last administered on 08/20/16 17:17; Start 08/19/16 at 11:00; Stop at 08:39; Status DC Alprazolam (Xanax) 2 mg BID PRN PO ANXIETY Last administered on 08/20/16 08:37 ; Start 08/19/16 at 11:45; Stop 08/20/16 at 13:27; Status DC Divalproex Sodium (Depakote Dr) 250 mg BID PO Last administered on 08/22/16 08 :35; Start 08/19/16 at 11:45 Levetriacetam (Keppra) 500 mg BID PO Last administered on 08/22/16 08:35; Start 08/19/16 at 11:45 Oxycodone HCl (Roxicodone) 10 mg Q4H PRN PO PAIN 7-10 Last administered on 08/22 08:36; Start 08/20/16 at 11:30 Alprazolam 2 mg 2 mg TID PRN PO ANXIETY Last administered on 08/22/16 06:40; Start 08/20/16 at 13:30 Ceftriaxone Sodium/Sodium Chloride (Rocephin Inj/NS Inj) 100 ml @ 200 mls/hr Q24H IV Last administered on 08/22/16 08:35; Start 08/21/16 at 09:00 Metronidazole (Flagyl) 500 mg Q8HR PO Last administered on 08/22/16 06:40; Start 08/21/16 at 08:45 A/P Assessment and Plan A/P - cellulitis/ abscess of the right lower extremity with recent IV drug injection- s/p I/D in ER wound culture with MSSA and strep.- blood cultures negative-continue with antibiotics per ID- continue with pain control- suspect drug-seeking behavior. venous doppler of the right lower extremity- pending. surgery and ID following- wound care consulted. counselled on drug abuse cessation. -seizure disorder; resume antiepileptics -DVT prophylaxis with subq heparin Leti Mota MD Aug 22, 2016 09:56
--- NOTE | 2016-08-22 10:55 | RADRPT ---
EXAM DATE/TIME: 08/22/2016 09:02 [place] COMPARISON: No previous studies available for comparison. INDICATIONS : Swelling in right lower extremity. MEDICAL HISTORY : Seizures. IV drug abuse. MRSA 2015. SURGICAL HISTORY : Appendectomy. ENCOUNTER: Initial ACUITY: 4 - 6 days PAIN SCORE: 10/10 LOCATION: Right leg. TECHNIQUE: Venous ultrasound of the leg was performed from the inguinal ligament to the proximal calf. Real-latonya e, color Doppler and spectral tracing, compression and augmentation techniques were used. FINDINGS: There is normal compressibility of the deep venous system from the inguinal region to the proximal ca lf. No echogenic clot is seen in the lumen of the common femoral, femoral, popliteal, and posterior tibial veins. There is a normal response of the venous system to proximal and distal augmentation an d respiration. Iliac vein open and patent CONCLUSION: Negative for DVT. Multiple right groin lymph nodes are appreciated the largest measuring 3.8 and 2.0 cm in size. Oliver Ortega MD on August 22, 2016 at 10:52 Board Certified Radiologist. This report was verified electronically.
[2016-08-22] MEDS ORDERED: ACETAMINOPHEN/HYDROcodone 325 MG/10 MG TAB PO PRN (13:45)
--- NOTE | 2016-08-22 14:22 | HHI.IDPN ---
Note Infectious Disease Note Patient complaining about her pain meds. Says she has pain in her r. leg. No chills. No fever. This is a 31-year-old white female who was admitted to the hospital with pain and redness and swelling of her right leg at the calf and also at the inner distal thigh. The patient reports that she injected IV drugs into her leg and two days later she developed this swelling and redness. This led to her having difficulty ambulating and because of the significant pain she presented to the emergency department for evaluation. She is reported to have tried to drain the leg with a razor to incise the area where she injected. She also reportedly had temperature elevation with fever of 101 degrees. The patient is noted to have used IV methamphetamines four days ago. She tells me that she tried to inject into the r. leg and felt that she might not have been in a vein and therefore she abandoned the injection and did not make further attempts. She is complaining of pain in the leg and wants increased pain medication. She states that she had some mild chills but she denies other symptoms including abdominal pain, nausea or vomiting. She tells me that she has had several skin lesions pop up on the skin over the past several weeks and that every time she would get a little bump in the skin it turns into a scab, but she at times tries to break the skin to allow the lesions to drain. PAST MEDICAL HISTORY 1. Depression. 2. Seizures. 3. History of appendectomy in 2006. 4. IV drug abuse. ALLERGIES 1. TRAMADOL. 2. TYLENOL. History of MRSA infection of the neck in July 2014. Current Medications Medications (Trade) Dose Ordered Sig/Chrissy Route PRN Reason Start Time Stop Time Status Last Admin Dose Admin IV Flush (NS Flush) 2 ml UNSCH PRN FLUSH FLUSH AFTER USING IV ACCESS 08/19/16 02:30 IV Flush (NS Flush) 2 ml BID FLUSH 08/19/16 09:00 08/22/16 08:35 Ondansetron HCl (Zofran Inj) 4 mg Q6H PRN IVP NAUSEA OR VOMITING 08/19/16 02:30 Naloxone HCl (Narcan Inj) 0.4 mg UNSCH PRN IV SEE LABEL COMMENTS 08/19/16 02:30 Ketorolac Tromethamine (Toradol Inj) 30 mg Q6H PRN IVP BREAKTHROUGH PAIN 08/19/16 04:00 08/20/16 11:37 Heparin Sodium (Porcine) (Heparin Inj) 5,000 units Q12H SQ 08/19/16 05:00 08/19/16 05:25 Divalproex Sodium (Depakote Dr) 250 mg BID PO 08/19/16 11:45 08/22/16 08:35 Levetriacetam (Keppra) 500 mg BID PO 08/19/16 11:45 08/22/16 08:35 Alprazolam 2 mg 2 mg TID PRN PO ANXIETY 08/20/16 13:30 08/22/16 06:40 Ceftriaxone Sodium/Sodium Chloride (Rocephin Inj/NS Inj) 100 ml @ 200 mls/hr Q24H IV 08/21/16 09:00 08/22/16 08:35 Metronidazole (Flagyl) 500 mg Q8HR PO 08/21/16 08:45 08/22/16 06:40 Acetaminophen/ Hydrocodone Bitart ([place] 10-325 Mg) 1 tab Q4H PRN PO PAIN 4-6 08/22/16 13:45 Acetaminophen/ Hydrocodone Bitart ([place] 10-325 Mg) 2 tab Q4H PRN PO PAIN 7-10 08/22/16 13:45 SOCIAL HISTORY The patient smokes half-a-pack of cigarettes a day. IV drug abuse. Use of marijuana, morphine and oxycodone. Denies alcohol. The patient reports that she has been stressed by her ex-boyfriend having of endocarditis a few months ago. FAMILY HISTORY Noncontributory. OBJECTIVE: Vital Signs Date Time Temp Pulse Resp B/P Pulse Ox O2 Delivery O2 Flow Rate FiO2 08/22/16 04:00 97.6 98 15 127/84 98 08/22/16 00:00 97.7 84 16 100/57 98 08/21/16 20:00 97.1 99 17 120/82 100 08/21/16 16:00 98.0 85 18 132/78 97 08/21/16 08/21/16 08/22/16 15:00 23:00 07:00 Intake Total 720 ml 240 ml 240 ml Balance 720 ml 240 ml 240 ml Intake Oral 720 ml 240 ml 240 ml # Voids 3 1 3 # Bowel Movements 0 1 PHYSICAL EXAMINATION GENERAL: no acute distress. She appears anxious. HEENT: Head atraumatic. Extraocular movements grossly intact. Pupils reactive to light without icterus. Oropharynx moist mucosa without lesions. NECK: Supple without adenopathy. LUNGS: Clear breath sounds. HEART: Regular rate and rhythm. No murmurs, rubs or gallops. ABDOMEN: Bowel sounds present, soft, nontender. EXTREMITIES: The right calf is markedly swollen and very tender. Lacy appearance of the skin. The patient also has redness at the inner distal right thigh and it is tender on palpation. She also has multiple excoriated lesions of the extremities including the arms. 3+ edema at the R. leg below the knee. Packing present in the distal thigh lesion. SKIN: No discrete rash. NEUROLOGIC: Nonfocal. PSYCHIATRIC: The patient appears very anxious and irritable. IMPRESSION 1. Abscess of the right calf. MSSA and group A beta strep. 2. Sepsis indicated by fever, elevated heart rate, in patient with abscess secondary to IV drug use. 3. History of MRSA. RECOMMENDATIONS 1. Stop Ceftriaxone. 2. Start Clindamycin. 3. Monitor clinical status. Steve Barrera MD Aug 22, 2016 14:22
[2016-08-22] MEDS: CLINDAMYCIN INJ 600 MG in SODIUM CHLORIDE 0.9% INJ 100 ML IV SCH ×2 (16:03→23:44)
[2016-08-22] MEDS: ACETAMINOPHEN/HYDROcodone 325 MG/10 MG TAB PO PRN ×2 (19:06→23:45)
[2016-08-23] VITALS (9 sets, daily range): BP systolic 90–109; BP diastolic 51–79; PULSE 67–95; RESP 16–18; TEMP 97–98.1; O2SAT 95–100
[2016-08-23] MEDS: HEPARIN SODIUM - SQ 10,000 UNITS/ML VIAL SQ SCH ×2 (04:21→16:28)
[2016-08-23] MEDS: metroNIDAZOLE 500 MG TAB PO SCH ×3 (06:08→21:20)
[2016-08-23 07:24] LABS: AUTOMATED NEUTROPHIL # 1.5 TH/MM3 (1.8-7.7); BASOPHIL % 0.6 % (0.0-2.0); EOSINOPHIL # 0.2 TH/MM3 (0-0.4); EOSINOPHIL % 5.4 % (0.0-4.0); HEMATOCRIT 33.9 % (35.0-46.0); HEMO FLAGS DIFF FINAL; LYMPH % 50.3 % (9.0-44.0); LYMPHOCYTE # 2.2 TH/MM3 (1.0-4.8); MEAN CELL VOLUME 85.7 FL (80.0-100.0); MEAN CORPUSCULAR HEMOGLOBIN 29.2 PG (27.0-34.0); MEAN CORPUSCULAR HGB CONC 34.1 % (32.0-36.0); NEUT % 34.7 % (16.0-70.0); PLATELET COUNT 343 TH/MM3 (150-450); RED BLOOD COUNT 3.96 MIL/MM3 (4.00-5.30); WHITE BLOOD COUNT 4.4 TH/MM3 (4.0-11.0)
[2016-08-23 08:03] LABS: BICARBONATE 28.9 MEQ/L (21.0-32.0)
[2016-08-23 08:09] LABS: POTASSIUM 4.1 MEQ/L (3.5-5.1)
[2016-08-23] MEDS: CLINDAMYCIN INJ 600 MG in SODIUM CHLORIDE 0.9% INJ 100 ML IV SCH ×2 (08:50→15:34)
[2016-08-23] MEDS: DIVALPROEX SODIUM DELAYED RELEASE 250 MG TAB PO SCH ×2 (08:50→21:20)
[2016-08-23] MEDS: SODIUM CHLORIDE 0.9% FLUSH 5 ML FLUSH FLUSH SCH ×2 (08:51→21:21)
[2016-08-23] MEDS: levETIRAcetam 500 MG TAB PO SCH ×2 (08:51→21:20)
[2016-08-23] MEDS: ACETAMINOPHEN/HYDROcodone 325 MG/10 MG TAB PO PRN ×2 (09:52→15:36)
--- NOTE | 2016-08-23 11:26 | HHI.PR ---
Subjective Remarks in no distress and looks fairly comfortable. swelling of the right leg seems to be improving. no fever. Objective Vitals Vital Signs Date Time Temp Pulse Resp B/P Pulse Ox O2 Delivery O2 Flow Rate FiO2 08/23/16 10:24 100/60 08/23/16 08:16 77 08/23/16 08:00 97.9 67 16 98/57 99 08/23/16 04:56 97.0 79 18 90/51 97 08/23/16 00:26 97.3 84 18 109/79 99 08/22/16 20:41 97.2 67 20 107/66 98 08/22/16 18:34 82 08/22/16 16:00 97.5 120 18 121/81 98 08/22/16 12:00 97.4 77 18 112/81 100 I/O 08/22/16 08/22/16 08/22/16 08/23/16 08/23/16 08/23/16 07:00 15:00 23:00 07:00 15:00 23:00 Intake Total 240 ml 898 ml 108 ml Output Total 0 ml Balance 240 ml 898 ml 108 ml Intake Oral 240 ml 360 ml IV Total 538 ml 108 ml Output Stool Total 0 ml # Voids 3 3 3 # Bowel Movements 1 0 Result Diagram: 08/23/16 0653 08/23/16 0653 Imaging Last Impressions Lower Extremity Ultrasound 08/22/16 0000 Signed Impressions: Service Date/Time: Monday, August 22, 2016 09:02 - CONCLUSION: Negative for DVT. Multiple right groin lymph nodes are appreciated the largest measuring 3.8 and 2.0 cm in size. Oliver Ortega MD Chest X-Ray [id number] Signed Impressions: Service Date/Time: July 21:27 - CONCLUSION: No evidence of acute cardiopulmonary disease. Kale Orozco MD Objective Remarks GENERAL: This is a well-nourished, well-developed patient, in no apparent distress. CARDIOVASCULAR: Regular rate and regular rhythm without murmurs, gallops, or rubs. RESPIRATORY: Clear to auscultation. Breath sounds equal bilaterally. No wheezes , rales, or rhonchi. GASTROINTESTINAL: Abdomen soft, non-tender, nondistended. Normal, active bowel sounds MUSCULOSKELETAL: swelling of the right leg NEURO: Alert & Oriented x4 to person, place, time, situation. Moves all ext x4 skin; cellulitis/ abscess of the right inner thigh and right leg- Procedures I/R of the right leg abscess- in ER Medications and IVs Current Medications Sodium Chloride 1,000 ml @ 1,000 mls/hr Q1H IV Last administered on 08/19/16 01:11; Start 08/18/16 at 21:17; Stop 08/18/16 at 22:16; Status DC Vancomycin HCl 1000 mg/Sodium Chloride 250 ml @ 250 mls/hr ONCE ONCE IV Last administered on 08/19/16 02:01; Start 08/18/16 at 21:30; Stop 08/18/16 at 22:29 ; Status DC Piperacillin Sod/ Tazobactam Sod (Zosyn 3.375 Gm Premix) 50 ml @ 100 mls/hr ONCE ONCE IV Last administered on 08/19/16 01:11; Start 08/18/16 at 21:30; Stop 08/18/16 at 21:59; Status DC Lidocaine/ Epinephrine 30 ml 30 ml ONCE ONCE INFIL Last administered on 02:02; Start 08/18/16 at 21:30; Stop 08/18/16 at 21:31; Status DC Sodium Chloride (NS 1000 ml Inj) 1,000 ml @ 1,000 mls/hr Q1H IV Last administered on 08/19/16 01:11; Start 08/18/16 at 21:19; Stop 08/18/16 at 22:18 ; Status DC Morphine Sulfate (Morphine Inj) 3 mg ONCE ONCE IV PUSH Last administered on 01:23; Start 08/18/16 at 23:15; Stop 08/18/16 at 23:16; Status DC Ketorolac Tromethamine (Toradol Inj) 30 mg ONCE ONCE IV PUSH Last administered on 08/19/16 01:23; Start 08/18/16 at 23:15; Stop 08/18/16 at 23:16 ; Status DC Potassium Chloride (KCl) 40 meq ONCE ONCE PO Last administered on 08/19/16 02 :02; Start 08/18/16 at 23:45; Stop 08/18/16 at 23:48; Status DC IV Flush (NS Flush) 2 ml UNSCH PRN FLUSH FLUSH AFTER USING IV ACCESS; Start at 02:30 IV Flush (NS Flush) 2 ml BID FLUSH Last administered on 08/23/16 08:51; Start 08/19/16 at 09:00 Ondansetron HCl (Zofran Inj) 4 mg Q6H PRN IVP NAUSEA OR VOMITING; Start at 02:30 Naloxone HCl 0.4 mg 0.4 mg UNSCH PRN IV SEE LABEL COMMENTS; Start 08/19/16 at 02:30 Pharmacy Profile Note 0 ml @ 0 mls/hr UNSCH OTHER ; Start 08/19/16 at 02:30; Stop 08/19/16 at 04:11; Status DC Pharmacy Profile Note (Vancomycin Consult Pharmacy) 0 ml @ 0 mls/hr UNSCH XX ; Start 08/19/16 at 04:00; Stop 08/21/16 at 08:39; Status DC Ketorolac Tromethamine 30 mg 30 mg Q6H PRN IVP BREAKTHROUGH PAIN Last administered on 08/20/16 11:37; Start 08/19/16 at 04:00 Vancomycin HCl/ Sodium Chloride (Vancomycin Inj/ NS 250 ml Inj) 250 ml @ 250 mls/hr Q12H IV ; Start 08/19/16 at 05:00; Stop 08/19/16 at 05:00; Status DC Heparin Sodium (Porcine) (Heparin Inj) 5,000 units Q12H SQ Last administered on 08/23/16 04:21; Start 08/19/16 at 05:00 Oxycodone HCl 5 mg 5 mg Q4H PRN PO PAIN 4-6 Last administered on 08/20/16 08: 38; Start 08/19/16 at 04:00; Stop 08/22/16 at 13:33; Status DC Vancomycin HCl/ Sodium Chloride (Vancomycin Inj/ NS 500 ml Inj) 513 ml @ 250 mls/hr Q18H IV Last administered on 08/20/16 08:37; Start 08/19/16 at 14:00; Stop 08/21/16 at 08:39; Status DC Miscellaneous Information SPECIFIC LAB TO BE MARK... ONCE ONCE XX ; Start at 01:45; Stop 08/21/16 at 01:46; Status DC Piperacillin Sod/ Tazobactam Sod (Zosyn 3.375 Gm Premix) 50 ml @ 100 mls/hr Q8H IV Last administered on 08/20/16 17:17; Start 08/19/16 at 11:00; Stop at 08:39; Status DC Alprazolam (Xanax) 2 mg BID PRN PO ANXIETY Last administered on 08/20/16 08:37 ; Start 08/19/16 at 11:45; Stop 08/20/16 at 13:27; Status DC Divalproex Sodium (Depakote Dr) 250 mg BID PO Last administered on 08/23/16 08 :50; Start 08/19/16 at 11:45 Levetriacetam (Keppra) 500 mg BID PO Last administered on 08/23/16 08:51; Start 08/19/16 at 11:45 Oxycodone HCl (Roxicodone) 10 mg Q4H PRN PO PAIN 7-10 Last administered on 08/22 12:55; Start 08/20/16 at 11:30; Stop 08/22/16 at 13:33; Status DC Alprazolam 2 mg 2 mg TID PRN PO ANXIETY Last administered on 08/22/16 23:45; Start 08/20/16 at 13:30 Ceftriaxone Sodium/Sodium Chloride (Rocephin Inj/NS Inj) 100 ml @ 200 mls/hr Q24H IV Last administered on 08/22/16 08:35; Start 08/21/16 at 09:00; Stop at 14:11; Status DC Metronidazole (Flagyl) 500 mg Q8HR PO Last administered on 08/23/16 06:08; Start 08/21/16 at 08:45 Acetaminophen/ Hydrocodone Bitart ([place] 10-325 Mg) 1 tab Q4H PRN PO PAIN 4-6; Start 08/22/16 at 13:45 Acetaminophen/ Hydrocodone Bitart 2 tab 2 tab Q4H PRN PO PAIN 7-10 Last administered on 08/23/16 09:52; Start 08/22/16 at 13:45 Clindamycin Phosphate/Sodium Chloride (Cleocin Inj/NS Inj) 104 ml @ 208 mls/hr Q8H IV Last administered on 1/24/17at 08:50; Start 08/22/16 at 16:00 A/P Assessment and Plan A/P - cellulitis/ abscess of the right lower extremity with recent IV drug injection- s/p I/D in ER wound culture with MSSA and strep.- blood cultures negative-continue with antibiotics per ID- continue with pain control- suspect drug-seeking behavior. venous doppler of the right lower extremity negative for DVT. surgery and ID following- wound care consulted. counselled on drug abuse cessation. -seizure disorder; resume antiepileptics -DVT prophylaxis with subq heparin Leti Mota MD Aug 23, 2016 11:26
[2016-08-23] MEDS: ALPRAZolam 1 MG TAB PO PRN (16:30)
[2016-08-24] MEDS: ALPRAZolam 1 MG TAB PO PRN ×4 (00:17→22:18)
[2016-08-24] MEDS: CLINDAMYCIN INJ 600 MG in SODIUM CHLORIDE 0.9% INJ 100 ML IV SCH ×3 (00:17→16:02)
[2016-08-24] MEDS: HEPARIN SODIUM - SQ 10,000 UNITS/ML VIAL SQ SCH ×2 (04:02→16:02)
[2016-08-24] MEDS: ACETAMINOPHEN/HYDROcodone 325 MG/10 MG TAB PO PRN ×4 (04:04→18:10)
[2016-08-24 04:47] VITALS: BP 95/53; PULSE 77; RESP 16; TEMP 97.4; O2SAT 98
[2016-08-24] MEDS: metroNIDAZOLE 500 MG TAB PO SCH ×3 (05:25→22:18)
[2016-08-24 08:00] VITALS: BP 109/72; PULSE 77; RESP 20; TEMP 97.8; O2SAT 100
[2016-08-24] MEDS: DIVALPROEX SODIUM DELAYED RELEASE 250 MG TAB PO SCH ×2 (08:43→22:18)
[2016-08-24] MEDS: levETIRAcetam 500 MG TAB PO SCH ×2 (08:43→22:18)
[2016-08-24] MEDS: SODIUM CHLORIDE 0.9% FLUSH 5 ML FLUSH FLUSH SCH ×2 (08:43→22:19)
--- NOTE | 2016-08-24 11:00 | HHI.PR ---
Subjective Remarks resting comfortably. d/w the RN and it doesn't seem that she's in that much of pain although she keeps asking for IV narcotics. no fever. Objective Vitals Vital Signs Date Time Temp Pulse Resp B/P Pulse Ox O2 Delivery O2 Flow Rate FiO2 08/24/16 08:00 97.8 77 20 109/72 100 08/24/16 04:47 97.4 77 16 95/53 98 08/23/16 23:15 97.2 79 16 92/54 98 08/23/16 21:13 97.3 89 16 96/59 98 08/23/16 16:00 97.3 88 16 99/62 100 08/23/16 12:00 98.1 95 16 105/75 95 I/O 08/23/16 08/23/16 08/23/16 08/24/16 08/24/16 08/24/16 07:00 15:00 23:00 07:00 15:00 23:00 Intake Total 108 ml 702 ml 755 ml 465 ml Balance 108 ml 702 ml 755 ml 465 ml Intake Oral 600 ml 240 ml 360 ml IV Total 108 ml 102 ml 515 ml 105 ml # Voids 3 3 2 3 # Bowel Movements 0 0 0 0 Result Diagram: 08/23/16 0653 08/23/16 0653 Imaging Last Impressions Lower Extremity Ultrasound 08/22/16 0000 Signed Impressions: Service Date/Time: Monday, August 22, 2016 09:02 - CONCLUSION: Negative for DVT. Multiple right groin lymph nodes are appreciated the largest measuring 3.8 and 2.0 cm in size. Oliver Ortega MD Chest X-Ray [id number] Signed Impressions: Service Date/Time: July 21:27 - CONCLUSION: No evidence of acute cardiopulmonary disease. Kale Orozco MD Objective Remarks GENERAL: This is a well-nourished, well-developed patient, in no apparent distress. CARDIOVASCULAR: Regular rate and regular rhythm without murmurs, gallops, or rubs. RESPIRATORY: Clear to auscultation. Breath sounds equal bilaterally. No wheezes , rales, or rhonchi. GASTROINTESTINAL: Abdomen soft, non-tender, nondistended. Normal, active bowel sounds MUSCULOSKELETAL: swelling of the right leg seems to be improving. NEURO: Alert & Oriented x4 to person, place, time, situation. Moves all ext x4 Procedures I/R of the right leg abscess- in ER Medications and IVs Current Medications Sodium Chloride 1,000 ml @ 1,000 mls/hr Q1H IV Last administered on 08/19/16 01:11; Start 08/18/16 at 21:17; Stop 08/18/16 at 22:16; Status DC Vancomycin HCl 1000 mg/Sodium Chloride 250 ml @ 250 mls/hr ONCE ONCE IV Last administered on 08/19/16 02:01; Start 08/18/16 at 21:30; Stop 08/18/16 at 22:29 ; Status DC Piperacillin Sod/ Tazobactam Sod (Zosyn 3.375 Gm Premix) 50 ml @ 100 mls/hr ONCE ONCE IV Last administered on 08/19/16 01:11; Start 08/18/16 at 21:30; Stop 08/18/16 at 21:59; Status DC Lidocaine/ Epinephrine 30 ml 30 ml ONCE ONCE INFIL Last administered on 02:02; Start 08/18/16 at 21:30; Stop 08/18/16 at 21:31; Status DC Sodium Chloride (NS 1000 ml Inj) 1,000 ml @ 1,000 mls/hr Q1H IV Last administered on 08/19/16 01:11; Start 08/18/16 at 21:19; Stop 08/18/16 at 22:18 ; Status DC Morphine Sulfate (Morphine Inj) 3 mg ONCE ONCE IV PUSH Last administered on 01:23; Start 08/18/16 at 23:15; Stop 08/18/16 at 23:16; Status DC Ketorolac Tromethamine (Toradol Inj) 30 mg ONCE ONCE IV PUSH Last administered on 08/19/16 01:23; Start 08/18/16 at 23:15; Stop 08/18/16 at 23:16 ; Status DC Potassium Chloride (KCl) 40 meq ONCE ONCE PO Last administered on 08/19/16 02 :02; Start 08/18/16 at 23:45; Stop 08/18/16 at 23:48; Status DC IV Flush (NS Flush) 2 ml UNSCH PRN FLUSH FLUSH AFTER USING IV ACCESS; Start at 02:30 IV Flush (NS Flush) 2 ml BID FLUSH Last administered on 08/24/16 08:43; Start 08/19/16 at 09:00 Ondansetron HCl (Zofran Inj) 4 mg Q6H PRN IVP NAUSEA OR VOMITING; Start at 02:30 Naloxone HCl 0.4 mg 0.4 mg UNSCH PRN IV SEE LABEL COMMENTS; Start 08/19/16 at 02:30 Pharmacy Profile Note 0 ml @ 0 mls/hr UNSCH OTHER ; Start 08/19/16 at 02:30; Stop 08/19/16 at 04:11; Status DC Pharmacy Profile Note (Vancomycin Consult Pharmacy) 0 ml @ 0 mls/hr UNSCH XX ; Start 08/19/16 at 04:00; Stop 08/21/16 at 08:39; Status DC Ketorolac Tromethamine 30 mg 30 mg Q6H PRN IVP BREAKTHROUGH PAIN Last administered on 08/20/16 11:37; Start 08/19/16 at 04:00 Vancomycin HCl/ Sodium Chloride (Vancomycin Inj/ NS 250 ml Inj) 250 ml @ 250 mls/hr Q12H IV ; Start 08/19/16 at 05:00; Stop 08/19/16 at 05:00; Status DC Heparin Sodium (Porcine) (Heparin Inj) 5,000 units Q12H SQ Last administered on 08/23/16 04:21; Start 08/19/16 at 05:00 Oxycodone HCl 5 mg 5 mg Q4H PRN PO PAIN 4-6 Last administered on 08/20/16 08: 38; Start 08/19/16 at 04:00; Stop 08/22/16 at 13:33; Status DC Vancomycin HCl/ Sodium Chloride (Vancomycin Inj/ NS 500 ml Inj) 513 ml @ 250 mls/hr Q18H IV Last administered on 08/20/16 08:37; Start 08/19/16 at 14:00; Stop 08/21/16 at 08:39; Status DC Miscellaneous Information SPECIFIC LAB TO BE MARK... ONCE ONCE XX ; Start at 01:45; Stop 08/21/16 at 01:46; Status DC Piperacillin Sod/ Tazobactam Sod (Zosyn 3.375 Gm Premix) 50 ml @ 100 mls/hr Q8H IV Last administered on 08/20/16 17:17; Start 08/19/16 at 11:00; Stop at 08:39; Status DC Alprazolam (Xanax) 2 mg BID PRN PO ANXIETY Last administered on 08/20/16 08:37 ; Start 08/19/16 at 11:45; Stop 08/20/16 at 13:27; Status DC Divalproex Sodium (Depakote Dr) 250 mg BID PO Last administered on 08/24/16 08 :43; Start 08/19/16 at 11:45 Levetriacetam (Keppra) 500 mg BID PO Last administered on 08/24/16 08:43; Start 08/19/16 at 11:45 Oxycodone HCl (Roxicodone) 10 mg Q4H PRN PO PAIN 7-10 Last administered on 08/22 12:55; Start 08/20/16 at 11:30; Stop 08/22/16 at 13:33; Status DC Alprazolam 2 mg 2 mg TID PRN PO ANXIETY Last administered on 08/24/16 09:19; Start 08/20/16 at 13:30 Ceftriaxone Sodium/Sodium Chloride (Rocephin Inj/NS Inj) 100 ml @ 200 mls/hr Q24H IV Last administered on 08/22/16 08:35; Start 08/21/16 at 09:00; Stop at 14:11; Status DC Metronidazole (Flagyl) 500 mg Q8HR PO Last administered on 08/24/16 05:25; Start 08/21/16 at 08:45 Acetaminophen/ Hydrocodone Bitart ([place] 10-325 Mg) 1 tab Q4H PRN PO PAIN 4-6 Last administered on 08/23/16 21:20; Start 08/22/16 at 13:45 Acetaminophen/ Hydrocodone Bitart 2 tab 2 tab Q4H PRN PO PAIN 7-10 Last administered on 08/24/16 08:44; Start 08/22/16 at 13:45 Clindamycin Phosphate/Sodium Chloride (Cleocin Inj/NS Inj) 104 ml @ 208 mls/hr Q8H IV Last administered on 08/24/16 08:43; Start 08/22/16 at 16:00 A/P Assessment and Plan A/P - cellulitis/ abscess of the right lower extremity with recent IV drug injection- s/p I/D in ER wound culture with MSSA and strep.- blood cultures negative-continue with antibiotics per ID- continue with pain control- suspect drug-seeking behavior and this was d/w the patient and the RN. venous doppler of the right lower extremity negative for DVT. surgery and ID following- wound care consulted. counselled on drug abuse cessation. -seizure disorder; resume antiepileptics -DVT prophylaxis with subq heparin Leti Mota MD Aug 24, 2016 11:00
[2016-08-24 12:00] VITALS: BP 91/59; PULSE 79; RESP 16; TEMP 98.2; O2SAT 100
[2016-08-24 16:00] VITALS: BP 128/69; PULSE 80; RESP 16; TEMP 98.3; O2SAT 96
[2016-08-24 20:00] VITALS: BP 111/73; PULSE 125; RESP 22; TEMP 97.7; O2SAT 98
[2016-08-25] VITALS: BP 119/67; PULSE 106; RESP 22; TEMP 97.8; O2SAT 98
[2016-08-25] MEDS: CLINDAMYCIN INJ 600 MG in SODIUM CHLORIDE 0.9% INJ 100 ML IV SCH ×2 (00:38→08:00)
[2016-08-25] MEDS ORDERED: CLINDAMYCIN 150 MG CAP PO SCH (01:00)
[2016-08-25] MEDS: ACETAMINOPHEN/HYDROcodone 325 MG/10 MG TAB PO PRN ×2 (01:04→07:29)
[2016-08-25] MEDS: metroNIDAZOLE 500 MG TAB PO SCH (05:15)
[2016-08-25] MEDS: HEPARIN SODIUM - SQ 10,000 UNITS/ML VIAL SQ SCH (05:15)
[2016-08-25 05:21] VITALS: BP 95/62; PULSE 71; RESP 20; TEMP 97.8; O2SAT 98
[2016-08-25 06:44] VITALS: BP 119/75
[2016-08-25 07:44] VITALS: BP 124/68; PULSE 89; RESP 18; TEMP 97.9; O2SAT 100
[2016-08-25] MEDS ORDERED: HYDROmorphone HCL PF 1 MG/ML VIAL IV ONE (08:15)
[2016-08-25] MEDS: ALPRAZolam 1 MG TAB PO PRN (08:31)
[2016-08-25] MEDS: SODIUM CHLORIDE 0.9% FLUSH 5 ML FLUSH FLUSH SCH (08:31)
[2016-08-25] MEDS: DIVALPROEX SODIUM DELAYED RELEASE 250 MG TAB PO SCH (08:31)
[2016-08-25] MEDS: levETIRAcetam 500 MG TAB PO SCH (08:31)
[2016-08-25 08:32] VITALS: RESP 20
--- NOTE | 2016-08-25 11:05 | HHI.PR ---
Subjective Remarks in no distress. no fever. has some pain to the right foot. Objective Vitals Vital Signs Date Time Temp Pulse Resp B/P Pulse Ox O2 Delivery O2 Flow Rate FiO2 08/25/16 08:32 20 08/25/16 07:44 97.9 89 18 124/68 100 08/25/16 06:44 119/75 08/25/16 05:21 97.8 71 20 95/62 98 08/25/16 00:00 97.8 106 22 119/67 98 08/24/16 20:00 97.7 125 22 111/73 98 08/24/16 16:00 98.3 80 16 128/69 96 08/24/16 12:00 98.2 79 16 91/59 100 I/O 08/24/16 08/24/16 08/24/16 08/25/16 08/25/16 08/25/16 07:00 15:00 23:00 07:00 15:00 23:00 Intake Total 465 ml 824 ml 480 ml 680 ml Balance 465 ml 824 ml 480 ml 680 ml Intake Oral 360 ml 720 ml 480 ml 680 ml IV Total 105 ml 104 ml # Voids 3 2 3 4 # Bowel Movements 0 1 1 Result Diagram: 08/23/16 0653 08/23/16 0653 Imaging Last Impressions Lower Extremity Ultrasound 08/22/16 0000 Signed Impressions: Service Date/Time: Monday, August 22, 2016 09:02 - CONCLUSION: Negative for DVT. Multiple right groin lymph nodes are appreciated the largest measuring 3.8 and 2.0 cm in size. Oliver Ortega MD Chest X-Ray [id number]/[id number] Signed Impressions: Service Date/Time: July 21:27 - CONCLUSION: No evidence of acute cardiopulmonary disease. Kale Orozco MD Objective Remarks GENERAL: This is a well-nourished, well-developed patient, in no apparent distress. CARDIOVASCULAR: Regular rate and regular rhythm without murmurs, gallops, or rubs. RESPIRATORY: Clear to auscultation. Breath sounds equal bilaterally. No wheezes , rales, or rhonchi. GASTROINTESTINAL: Abdomen soft, non-tender, nondistended. Normal, active bowel sounds MUSCULOSKELETAL: swelling of the right leg seems to be improving. NEURO: Alert & Oriented x4 to person, place, time, situation. Moves all ext x4 Procedures I/R of the right leg abscess- in ER Medications and IVs Current Medications Sodium Chloride 1,000 ml @ 1,000 mls/hr Q1H IV Last administered on 08/19/16 01:11; Start 08/18/16 at 21:17; Stop 08/18/16 at 22:16; Status DC Vancomycin HCl 1000 mg/Sodium Chloride 250 ml @ 250 mls/hr ONCE ONCE IV Last administered on 08/19/16 02:01; Start 08/18/16 at 21:30; Stop 08/18/16 at 22:29 ; Status DC Piperacillin Sod/ Tazobactam Sod (Zosyn 3.375 Gm Premix) 50 ml @ 100 mls/hr ONCE ONCE IV Last administered on 08/19/16 01:11; Start 08/18/16 at 21:30; Stop 08/18/16 at 21:59; Status DC Lidocaine/ Epinephrine 30 ml 30 ml ONCE ONCE INFIL Last administered on 02:02; Start 08/18/16 at 21:30; Stop 08/18/16 at 21:31; Status DC Sodium Chloride (NS 1000 ml Inj) 1,000 ml @ 1,000 mls/hr Q1H IV Last administered on 08/19/16 01:11; Start 08/18/16 at 21:19; Stop 08/18/16 at 22:18 ; Status DC Morphine Sulfate (Morphine Inj) 3 mg ONCE ONCE IV PUSH Last administered on 01:23; Start 08/18/16 at 23:15; Stop 08/18/16 at 23:16; Status DC Ketorolac Tromethamine (Toradol Inj) 30 mg ONCE ONCE IV PUSH Last administered on 08/19/16 01:23; Start 08/18/16 at 23:15; Stop 08/18/16 at 23:16 ; Status DC Potassium Chloride (KCl) 40 meq ONCE ONCE PO Last administered on 08/19/16 02 :02; Start 08/18/16 at 23:45; Stop 08/18/16 at 23:48; Status DC IV Flush (NS Flush) 2 ml UNSCH PRN FLUSH FLUSH AFTER USING IV ACCESS; Start at 02:30 IV Flush (NS Flush) 2 ml BID FLUSH Last administered on 08/24/16 22:19; Start 08/19/16 at 09:00 Ondansetron HCl (Zofran Inj) 4 mg Q6H PRN IVP NAUSEA OR VOMITING; Start at 02:30 Naloxone HCl 0.4 mg 0.4 mg UNSCH PRN IV SEE LABEL COMMENTS; Start 08/19/16 at 02:30 Pharmacy Profile Note 0 ml @ 0 mls/hr UNSCH OTHER ; Start 08/19/16 at 02:30; Stop 08/19/16 at 04:11; Status DC Pharmacy Profile Note (Vancomycin Consult Pharmacy) 0 ml @ 0 mls/hr UNSCH XX ; Start 08/19/16 at 04:00; Stop 08/21/16 at 08:39; Status DC Ketorolac Tromethamine 30 mg 30 mg Q6H PRN IVP BREAKTHROUGH PAIN Last administered on 08/20/16 11:37; Start 08/19/16 at 04:00; Stop 08/24/16 at 23:59 ; Status DC Vancomycin HCl/ Sodium Chloride (Vancomycin Inj/ NS 250 ml Inj) 250 ml @ 250 mls/hr Q12H IV ; Start 08/19/16 at 05:00; Stop 08/19/16 at 05:00; Status DC Heparin Sodium (Porcine) (Heparin Inj) 5,000 units Q12H SQ Last administered on 08/23/16 04:21; Start 08/19/16 at 05:00 Oxycodone HCl 5 mg 5 mg Q4H PRN PO PAIN 4-6 Last administered on 08/20/16 08: 38; Start 08/19/16 at 04:00; Stop 08/22/16 at 13:33; Status DC Vancomycin HCl/ Sodium Chloride (Vancomycin Inj/ NS 500 ml Inj) 513 ml @ 250 mls/hr Q18H IV Last administered on 08/20/16 08:37; Start 08/19/16 at 14:00; Stop 08/21/16 at 08:39; Status DC Miscellaneous Information SPECIFIC LAB TO BE ... ONCE ONCE XX ; Start at 01:45; Stop 08/21/16 at 01:46; Status DC Piperacillin Sod/ Tazobactam Sod (Zosyn 3.375 Gm Premix) 50 ml @ 100 mls/hr Q8H IV Last administered on 08/20/16 17:17; Start 08/19/16 at 11:00; Stop at 08:39; Status DC Alprazolam (Xanax) 2 mg BID PRN PO ANXIETY Last administered on 08/20/16 08:37 ; Start 08/19/16 at 11:45; Stop 08/20/16 at 13:27; Status DC Divalproex Sodium (Depakote Dr) 250 mg BID PO Last administered on 08/25/16 08 :31; Start 08/19/16 at 11:45 Levetriacetam (Keppra) 500 mg BID PO Last administered on 08/25/16 08:31; Start 08/19/16 at 11:45 Oxycodone HCl (Roxicodone) 10 mg Q4H PRN PO PAIN 7-10 Last administered on 08/22 12:55; Start 08/20/16 at 11:30; Stop 08/22/16 at 13:33; Status DC Alprazolam 2 mg 2 mg TID PRN PO ANXIETY Last administered on 08/25/16 08:31; Start 08/20/16 at 13:30 Ceftriaxone Sodium/Sodium Chloride (Rocephin Inj/NS Inj) 100 ml @ 200 mls/hr Q24H IV Last administered on 08/22/16 08:35; Start 08/21/16 at 09:00; Stop at 14:11; Status DC Metronidazole (Flagyl) 500 mg Q8HR PO Last administered on 08/25/16 05:15; Start 08/21/16 at 08:45 Acetaminophen/ Hydrocodone Bitart ([place] 10-325 Mg) 1 tab Q4H PRN PO PAIN 4-6 Last administered on 08/23/16 21:20; Start 08/22/16 at 13:45 Acetaminophen/ Hydrocodone Bitart 2 tab 2 tab Q4H PRN PO PAIN 7-10 Last administered on 08/25/16 07:29; Start 08/22/16 at 13:45 Clindamycin Phosphate/Sodium Chloride (Cleocin Inj/NS Inj) 104 ml @ 208 mls/hr Q8H IV Last administered on 08/24/16 16:02; Start 08/22/16 at 16:00 Clindamycin HCl (Cleocin) 600 mg ONCE PO Last administered on 08/25/16 01:04; Start 08/25/16 at 01:00; Stop 08/25/16 at 03:00; Status DC Hydromorphone HCl (Dilaudid Pf Inj) 0.5 mg ONCE ONCE IV ; Start 08/25/16 at 08: 15; Stop 08/25/16 at 08:16; Status DC A/P Assessment and Plan A/P - cellulitis/ abscess of the right lower extremity with recent IV drug injection- s/p I/D in ER wound culture with MSSA and strep.- blood cultures negative-continue with antibiotics per ID- continue with pain control- suspect drug-seeking behavior and this was d/w the patient and the RN. venous doppler of the right lower extremity negative for DVT. surgery and ID following- wound care consulted. counselled on drug abuse cessation. -seizure disorder; resume antiepileptics -DVT prophylaxis with subq heparin Discharge Planning when ok with ID- awaiting follow-up and recommendations. Leti Mota MD Aug 25, 2016 11:05
--- NOTE | 2016-08-25 12:01 | HHI.IDPN ---
Note Infectious Disease Note Patient continues to complain about her pain meds. Says she has pain in her r. leg severe. Threatening to leave AMA. Tearful. No chills. No fever. No SOB. Seen for R. calf and inner thigh abscesses. PAST MEDICAL HISTORY 1. Depression. 2. Seizures. 3. History of appendectomy in 2006. 4. IV drug abuse. ALLERGIES 1. TRAMADOL. 2. TYLENOL. History of MRSA infection of the neck in July 2014. ANTIBIOTIC: Clindamycin. SOCIAL HISTORY The patient smokes half-a-pack of cigarettes a day. IV drug abuse. Use of marijuana, morphine and oxycodone. Denies alcohol. The patient reports that she has been stressed by her ex-boyfriend having of endocarditis a few months ago. FAMILY HISTORY Noncontributory. OBJECTIVE: Vital Signs Date Time Temp Pulse Resp B/P Pulse Ox O2 Delivery O2 Flow Rate FiO2 08/25/16 08:32 20 08/25/16 07:44 97.9 89 18 124/68 100 08/25/16 06:44 119/75 08/25/16 05:21 97.8 71 20 95/62 98 08/25/16 00:00 97.8 106 22 119/67 98 08/24/16 20:00 97.7 125 22 111/73 98 08/24/16 16:00 98.3 80 16 128/69 96 08/24/16 12:00 98.2 79 16 91/59 100 PHYSICAL EXAMINATION GENERAL: No acute distress. Anxious. HEENT: Head atraumatic. Extraocular movements grossly intact. Pupils reactive to light without icterus. Oropharynx moist mucosa without lesions. NECK: Supple without adenopathy. LUNGS: Clear breath sounds. HEART: Regular rate and rhythm. No murmurs, rubs or gallops. ABDOMEN: Bowel sounds present, soft, nontender. EXTREMITIES: The right calf is still swollen but less erythematous. shallow superficial ulcer. Distal right thigh is has minimal erythema. tiny superficial ulcer at site of previous abscess. She also has multiple excoriated lesions of the extremities including the arms. 2+ edema at the R. leg below the knee. SKIN: No discrete rash. NEUROLOGIC: Nonfocal. PSYCHIATRIC: The patient appears very anxious and irritable. IMPRESSION 1. Abscess of the right calf. MSSA and group A beta strep. 2. Sepsis indicated by fever, elevated heart rate, in patient with abscess secondary to IV drug use. 3. History of MRSA. RECOMMENDATIONS Change Clindamycin to PO and treat for 7 - 10 days more. D/W Steve Reynaga MD Aug 25, 2016 12:01
[2016-08-25] MEDS ORDERED: DEPA250T2 PO (12:11)
[2016-08-25] MEDS ORDERED: LEVE500 PO (12:11)
[2016-08-25] MEDS ORDERED: CLIN1CAP6 PO (12:11)
--- NOTE | 2016-08-25 12:12 | HHI.DS ---
Discharge Summary Admission Date Aug 19, 2016 at 01:42 Discharge Date: Aug 25, 2016 Admitting Diagnosis Cellulitis, IVDU, abscess (1) Cellulitis and abscess of leg ICD Code: L02.419 Diagnosis: Principal (2) IV drug user ICD Code: F19.90 Diagnosis: Principal Procedures I/R of the right leg abscess- in ER Brief History - From Admission 31-year-old female with a history of seizures but currently not on any medications, and IVDA presented to the ED with complaints of an abscess to the right outer calf and right inner thigh. Patient states 5 days ago she injected meth into her thigh and 2 days ago she had these abscess form on her leg. She lanced open the abscess on her right inner thigh herself in today because she began to have fevers of 101 at home with associated chills. Upon admission temperature 99.7. She states this has happened to her in the past when she has injected meth and she does not do it routinely. She does admit to routinely injecting Dilaudid but states she has never gotten abscesses from it. Patient does have a history of MRSA. She denies any chest pain or shortness of breath. CBC/BMP: 08/23/16 0653 08/23/16 0653 Significant Findings Laboratory Tests Test 08/23/16 06:53 Red Blood Count 3.96 MIL/MM3 (4.00-5.30) Hematocrit 33.9 % (35.0-46.0) Lymphocytes (%) (Auto) 50.3 % (9.0-44.0) Monocytes (%) (Auto) 9.0 % (0.0-8.0) Eosinophils (%) (Auto) 5.4 % (0.0-4.0) Neutrophils # (Auto) 1.5 TH/MM3 (1.8-7.7) Estimat Glomerular Filtration 80 ML/MIN (>89) Rate Imaging Last Impressions Lower Extremity Ultrasound 08/22/16 0000 Signed Impressions: Service Date/Time: Monday, August 22, 2016 09:02 - CONCLUSION: Negative for DVT. Multiple right groin lymph nodes are appreciated the largest measuring 3.8 and 2.0 cm in size. Oliver Ortega MD Chest X-Ray [id number]/[id number] Signed Impressions: Service Date/Time: July 21:27 - CONCLUSION: No evidence of acute cardiopulmonary disease. Kale Orozco MD PE at Discharge GENERAL: This is a well-nourished, well-developed patient, in no apparent distress. CARDIOVASCULAR: Regular rate and regular rhythm without murmurs, gallops, or rubs. RESPIRATORY: Clear to auscultation. Breath sounds equal bilaterally. No wheezes , rales, or rhonchi. GASTROINTESTINAL: Abdomen soft, non-tender, nondistended. Normal, active bowel sounds MUSCULOSKELETAL: swelling of the right leg seems to be improving. NEURO: Alert & Oriented x4 to person, place, time, situation. Moves all ext x4 Hospital Course - cellulitis/ abscess of the right lower extremity with recent IV drug injection- s/p I/D in ER wound culture with MSSA and strep.- blood cultures negative-continue with antibiotics per ID- continue with pain control- suspect drug-seeking behavior and this was d/w the patient and the RN. venous doppler of the right lower extremity negative for DVT. surgery and ID following- wound care consulted. counselled on drug abuse cessation. -seizure disorder; resume antiepileptics -DVT prophylaxis with subq heparin Pt Condition on Discharge: Stable Discharge Disposition: Discharge Home Discharge Time: <= 30 minutes Discharge Instructions DIET: Follow Instructions for: Heart Healthy Diet Activities you can perform: Regular-No Restrictions Follow up Referrals: PCP Follow-up New Medications: Alprazolam (Alprazolam) 1 Mg Tab 1 MG PO Q8H PRN ANXIETY #10 Ref 0 TAB Clindamycin (Clindamycin) 300 Mg Cap 300 MG PO Q6H Infection Days 10 Ref 0 CAP Ibuprofen (Ibuprofen) 400 Mg Tab 400 MG PO Q8H PRN pain #14 Ref 0 TAB Continued Medications: Divalproex DR (Depakote DR) 250 Mg Tabdr 250 MG PO BID Control Seizures #60 Ref 0 TAB (This prescription has been renewed ) Levetiracetam (Keppra) 500 Mg Tab 500 MG PO BID Control Seizures #60 Ref 0 TAB (This prescription has been renewed ) Leti Mota MD Aug 25, 2016 12:12
--- NOTE | 2016-08-25 12:12 | HHI.DCPOC ---
Discharge Care Plan Diagnosis: (1) Cellulitis and abscess of leg Your Health Problems Are: Inflammation Swelling Goals to Promote Your Health * To prevent worsening of your condition and complications * To maintain your health at the optimal level Directions to Meet Your Goals Take your medications as prescribed Follow your dietary instruction Follow activity as directed Keep your appointments as scheduled Take your immunizations and boosters as scheduled If your symptoms worsen call your PCP, if no PCP go to Urgent Care Center or Emergency Room Smoking is Dangerous to Your Health. Avoid second hand smoke Call the 24-hour hour crisis hotline for domestic abuse at Leti Mota MD Aug 25, 2016 12:12
[2016-08-25] MEDS ORDERED: IBUP400T20 PO (12:20)
[2016-08-25] MEDS ORDERED: ALPR1TAB3 PO (13:46)
== END 2016-08-25 14:14 | disposition home or self-care (01) | DRG 872 ==
LOC: NEPB 20:44 → NEDA 08-19 01:42 → NEDH 08-19 05:42 → N04B 08-19 17:10
PROVIDERS: ADMIT Internal Medicine; ATTEND Internal Medicine
DX: A41.9 Sepsis, unspecified organism (principal); E87.1 Hypo-osmolality and hyponatremia; L03.115 Cellulitis of right lower limb; Z86.14 Personal history of Methicillin resistant Staphylococcus aureus infection; F11.10 Opioid abuse, uncomplicated; F12.90 Cannabis use, unspecified, uncomplicated; F17.210 Nicotine dependence, cigarettes, uncomplicated; F19.10 Other psychoactive substance abuse, uncomplicated; G40.909 Epilepsy, unspecified, not intractable, without status epilepticus
CPT/HCPCS: 10060; 71010; 76937; 80048; 80053; 80202; 83605; 84703; 85025; 85610; 85730; 86403; 87040; 87070; 87147; 87186; 87205; 87804; 93971; 96365; 96375; J0696; J1644; J1885; J2270; J2543; J3370; J7030; J7040; J7050

== ENCOUNTER 2016-09-11 20:38 | Emergency (ER) | payer OTHER ==
[~2016-09-11] VITALS: Ht 162.6 cm; Wt 58.0 kg
[~2016-09-11 20:38] MED LIST changes: +ALPR1TAB3 PO; +CLIN1CAP6 PO; +IBUP400T20 PO; -XANA1TAB6 PO
[2016-09-11] MEDS ORDERED: XANA2TAB2 PO (20:50)
[2016-09-11 20:53] VITALS: TEMP 98.6
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
[2016-09-11 22:13] LABS: AUTOMATED NEUTROPHIL # 2.9 TH/MM3 (1.8-7.7); BASOPHIL # 0.1 TH/MM3 (0-0.2); EOSINOPHIL # 0.2 TH/MM3 (0-0.4); EOSINOPHIL % 2.6 % (0.0-4.0); HEMATOCRIT 41.4 % (35.0-46.0); HEMO FLAGS DIFF FINAL; LYMPH % 44.7 % (9.0-44.0); LYMPHOCYTE # 2.9 TH/MM3 (1.0-4.8); MEAN CELL VOLUME 86.8 FL (80.0-100.0); MEAN CORPUSCULAR HEMOGLOBIN 29.4 PG (27.0-34.0); MEAN CORPUSCULAR HGB CONC 33.8 % (32.0-36.0); NEUT % 44.7 % (16.0-70.0); PLATELET COUNT 259 TH/MM3 (150-450); RED BLOOD COUNT 4.77 MIL/MM3 (4.00-5.30); RED CELL DISTRIBUTION WIDTH 13.8 % (11.6-17.2); WHITE BLOOD COUNT 6.5 TH/MM3 (4.0-11.0)
[2016-09-11 22:27] VITALS: BP 118/73; PULSE 89; RESP 16; O2SAT 100
[2016-09-11 22:37] LABS: ALT (GPT) 130 U/L (10-53); ANION GAP 7 MEQ/L (5-15); AST (GOT) 75 U/L (15-37); BICARBONATE 22.7 MEQ/L (21.0-32.0); BLOOD UREA NITROGEN 17 MG/DL (7-18); CHLORIDE 107 MEQ/L (98-107); GLOMERULAR FILTRATION RATE 86 ML/MIN (>89); POTASSIUM 4.7 MEQ/L (3.5-5.1); SODIUM (NA) 137 MEQ/L (136-145)
[2016-09-11 22:39] LABS: ALKALINE PHOSPHATASE 81 U/L (45-117); TOTAL BILIRUBIN ADULT 0.2 MG/DL (0.2-1.0)
[2016-09-11 22:44] LABS: BACTERIA, URINE RARE /hpf; BLOOD, URINE NEG (NEG); COMMENT (UR) CULT NOT INDICATED; CULTURE IF INDICATED CULT NOT INDICATED; GLUCOSE,URINE NEG (NEG); KETONE, URINE NEG (NEG); MUCUS URINE FEW /lpf (OCC); NITRITE,URINE NEG (NEG); PH, URINE 6.5 (5.0-8.5); SQUAMOUS EPITHELIAL CELL URINE 15 /hpf (0-5); URINE COLOR YELLOW (YELLW/STRAW)
[2016-09-11 22:45] LABS: AMPHETAMINE, URINE POS (NEG); BARBITURATES, URINE NEG (NEG); COCAINE, URINE NEG (NEG)
[2016-09-12] MEDS ORDERED: LEVE500 PO (00:06)
[2016-09-12 02:40] VITALS: BP 108/55; PULSE 78; RESP 19; O2SAT 99
[2016-09-12] MEDS ORDERED: levETIRAcetam 500 MG TAB PO ONE (03:30)
== END 2016-09-12 03:56 ==
LOC: NEPA 20:38 → NEPJ 09-12 03:56
DX: F11.10 Opioid abuse, uncomplicated (principal); S61.512A Laceration without foreign body of left wrist, initial encounter; S81.801A Unspecified open wound, right lower leg, initial encounter; B95.0 Streptococcus, group A, as the cause of diseases classified elsewhere; B95.62 Methicillin resistant Staphylococcus aureus infection as the cause of diseases classified elsewhere; X78.9XXA Intentional self-harm by unspecified sharp object, initial encounter
CPT/HCPCS: 80053; 80307; 80320; 81001; 84703; 85025; 86403; 87070; 87186; 87205; 99285

== ENCOUNTER 2016-09-16 16:01 | Emergency (ER) | payer SELFPAY ==
[~2016-09-16] VITALS: Ht 157.5 cm; Wt 57.0 kg
[~2016-09-16 16:01] MED LIST changes: -ALPR1TAB3 PO; -CLIN1CAP6 PO; -IBUP400T20 PO; +XANA2TAB2 PO
[2016-09-16 16:06] VITALS: BP 119/84; PULSE 90; RESP 18; TEMP 97.9; O2SAT 100
[2016-09-16] MEDS ORDERED: SODIUM CHLOR 0.9% 1000 ML INJ 1,000 ML IV ONE (16:46)
--- NOTE | 2016-09-16 16:49 | PD ---
HPI Chief Complaint: Seizure Time Seen by Provider: 14:10 Travel History International Travel<30 days: No Contact w/Intl Traveler<30days: No Traveled to known affect area: No History of Present Illness HPI 31-year-old female brought in by ambulance status post reported seizures. She has a long history of seizures since she was a child. She reports that she has been treated with Keppra, Depakote, and Xanax 3 times daily or years. Patient also has a history of IV drug use and MRSA, and she she has been clean for 6 years but recently had a "relapse". Patient states she 's had many seizures over the last 7 days. Patient denies oral or dental injury. She denies any physical pain at this time. She is noted to be allergic to tramadol and Tylenol. PFSH Past Medical History Arthritis: No Asthma: No Autoimmune Disease: No Anxiety: Yes Depression: Yes Heart Rhythm Problems: No Cancer: No Cardiovascular Problems: Yes (ENDOCARDITIS ) High Cholesterol: No Chest Pain: Yes Congestive Heart Failure: No COPD: No Cerebrovascular Accident: No Diminished Hearing: No Endocrine: No GERD: No Genitourinary: No Hiatal Hernia: No Immune Disorder: No Musculoskeletal: No Neurologic: Yes Psychiatric: Yes Reproductive: No Respiratory: No Immunizations Current: Yes Migraines: No Seizures: Yes (since 9 yrs old. took Keppra) Sleep Apnea: No Ulcer: No : 1 Para: 1 Past Surgical History Abdominal Surgery: Yes (appendix) AICD: No Appendectomy: Yes (2006) Arteriovenous Shunt: No Cardiac Surgery: No Ear Surgery: No Endocrine Surgery: No Eye Surgery: No Genitourinary Surgery: No Gynecologic Surgery: No Insulin Pump: No Joint Replacement: No Oral Surgery: No Pacemaker: No Thoracic Surgery: No Other Surgery: Yes Social History Alcohol Use: No (OCC) Tobacco Use: Yes (08/01 PPD) Substance Use: Yes (PSA) Allergies-Medications (Allergen,Severity, Reaction): Coded Allergies: Tramadol (Unverified Allergy, Severe, SEIZURE, 09/16/16) Tylenol (Verified Allergy, Severe, Hives, 09/16/16) VOMITING *MDRO Multi-Drug Resistant Organism (Unverified Adverse Reaction, Unknown , 09/16/16) MRSA (wound) 07/2014; MRSA (leg abscess)-02/12/17 Reported Meds & Prescriptions Reported Meds & Active Scripts Active Keppra (Levetiracetam) 500 Mg Tab 500 Mg PO BID Depakote DR (Divalproex Sodium) 250 Mg Tabdr 250 Mg PO BID Reported Xanax (Alprazolam) 2 Mg Tab 2 Mg PO TID Review of Systems Except as stated in HPI: all other systems reviewed are Neg General / Constitutional: No: Fever Eyes: No: Visual changes HENT: No: Headaches Cardiovascular: No: Chest Pain or Discomfort Respiratory: No: Shortness of Breath Gastrointestinal: No: Abdominal Pain Genitourinary: No: Dysuria Musculoskeletal: No: Pain Skin: Positive Lesions (multiple excoriated open lesions on both upper forearms and hands consistent with MRSA from IV drug use.), No Rash Neurologic: No: Weakness Psychiatric: No: Depression Endocrine: No: Polydipsia Hematologic/Lymphatic: No: Easy Bruising Physical Exam Narrative GENERAL: Patient appears to be somewhat postictal versus intoxicated. She is arousable and appropriate. SKIN: Warm and dry. Multiple excoriated crusted lesions on both upper arms, forearms, and hands consistent with MRSA cellulitis. No current signs of abscess or lymphangitis. HEAD: Atraumatic. Normocephalic. EYES: Pupils equal and round. No scleral icterus. No injection or drainage. ENT: No nasal bleeding or discharge. Mucous membranes pink and moist. Pharynx is clear. No dental injury. No mucosal membrane injury. Airway is patent. NECK: Trachea midline. No JVD. CARDIOVASCULAR: Regular rate and rhythm. RESPIRATORY: No accessory muscle use. Clear to auscultation. Breath sounds equal bilaterally. GASTROINTESTINAL: Abdomen soft, non-tender, nondistended. Hepatic and splenic margins not palpable. MUSCULOSKELETAL: Extremities without clubbing, cyanosis, or edema. No obvious deformities. NEUROLOGICAL: Awake and alert. No obvious cranial nerve deficits. Motor grossly within normal limits. Five out of 5 muscle strength in the arms and legs. Normal speech. PSYCHIATRIC: Appropriate mood and affect; insight and judgment normal. Data Data Last Documented VS Vital Signs Date Time Temp Pulse Resp B/P Pulse Ox O2 Delivery O2 Flow Rate FiO2 09/16/16 16:06 97.9 90 18 119/84 100 Orders Complete Blood Count With Diff (09/16/16 16:46) Drug Screen, Random Urine (09/16/16 16:46) Blood Culture (09/16/16 16:46) Electrocardiogram (09/16/16 ) Ecg Monitoring (09/16/16 16:46) Iv Access Insert/Monitor (09/16/16 16:46) Oximetry (09/16/16 16:46) Comprehensive Metabolic Panel (09/16/16 16:46) Sodium Chlor 0.9% 1000 Ml Inj (Ns 1000 M (09/16/16 16:46) Sodium Chloride 0.9% Flush (Ns Flush) (09/16/16 17:00) Urinalysis - C+S If Indicated (09/16/16 16:46) Levetiracetam 1000 Mg Inj (Keppra 1000 M (09/16/16 17:00) Diet Regular Basic (09/16/16 Dinner) Valproic Acid (Depakene) (09/16/16 16:49) Labs Laboratory Tests Test 09/16/16 17:09 White Blood Count 7.5 TH/MM3 Red Blood Count 4.39 MIL/MM3 Hemoglobin 12.5 GM/DL Hematocrit 36.8 % Mean Corpuscular Volume 83.8 FL Mean Corpuscular Hemoglobin 28.5 PG Mean Corpuscular Hemoglobin 34.0 % Concent Red Cell Distribution Width 13.5 % Platelet Count 288 TH/MM3 Mean Platelet Volume 7.7 FL Neutrophils (%) (Auto) 55.5 % Lymphocytes (%) (Auto) 33.9 % Monocytes (%) (Auto) 5.7 % Eosinophils (%) (Auto) 4.1 % Basophils (%) (Auto) 0.8 % Neutrophils # (Auto) 4.2 TH/MM3 Lymphocytes # (Auto) 2.5 TH/MM3 Monocytes # (Auto) 0.4 TH/MM3 Eosinophils # (Auto) 0.3 TH/MM3 Basophils # (Auto) 0.1 TH/MM3 CBC Comment DIFF FINAL Differential Comment Sodium Level 135 MEQ/L Potassium Level 4.3 MEQ/L Chloride Level 103 MEQ/L Carbon Dioxide Level 25.7 MEQ/L Anion Gap 6 MEQ/L Blood Urea Nitrogen 14 MG/DL Creatinine 0.77 MG/DL Estimat Glomerular Filtration 87 ML/MIN Rate Random Glucose 84 MG/DL Calcium Level 8.5 MG/DL Total Bilirubin 0.5 MG/DL Aspartate Amino Transf 54 U/L (AST/SGOT) Alanine Aminotransferase 95 U/L (ALT/SGPT) Alkaline Phosphatase 75 U/L Total Protein 7.6 GM/DL Albumin 3.2 GM/DL MDM Medical Decision Making Medical Screen Exam Complete: Yes Emergency Medical Condition: Yes Differential Diagnosis Seizure disorder. IV drug abuse history. Postictal versus intoxication. Drug- seeking behavior. Narrative Course Labs ordered including CBC, CMP, urinalysis, urine drug screen, serum alcohol level, blood cultures 2, valproic acid level is ordered as well. Patient is ordered at 1000 mg Keppra IV. CBC is unremarkable. CMP shows a sodium 135. Normal potassium 4.3. BUN/creatinine normal. AST is 54, AST is 95. Albumin is 3.2. Patient is seen in the ambulance [facility], and is awaiting med bed placement. 1900 hrs. patient is moved to [facility]. Still awaiting a urinalysis from the patient. She is also not received her IV Keppra at this time. Patient was discussed with Dr. Nix, who agreed to assume care of the patient at that time. Please see her note for disposition of this patient. Condition: Stable Kalen Hidalgo Sep 16, 2016 16:49
[2016-09-16] MEDS ORDERED: SODIUM CHLORIDE 0.9% FLUSH 5 ML FLUSH IVF PRN (17:00)
[2016-09-16] MEDS ORDERED: levETIRAcetam 1000 MG INJ 100 ML IV ONE (17:00)
[2016-09-16 17:37] LABS: AUTOMATED NEUTROPHIL # 4.2 TH/MM3 (1.8-7.7); BASOPHIL # 0.1 TH/MM3 (0-0.2); BASOPHIL % 0.8 % (0.0-2.0); EOSINOPHIL # 0.3 TH/MM3 (0-0.4); EOSINOPHIL % 4.1 % (0.0-4.0); HEMATOCRIT 36.8 % (35.0-46.0); HEMO FLAGS DIFF FINAL; LYMPH % 33.9 % (9.0-44.0); LYMPHOCYTE # 2.5 TH/MM3 (1.0-4.8); MEAN CELL VOLUME 83.8 FL (80.0-100.0); MEAN CORPUSCULAR HEMOGLOBIN 28.5 PG (27.0-34.0); MONO % 5.7 % (0.0-8.0); NEUT % 55.5 % (16.0-70.0); PLATELET COUNT 288 TH/MM3 (150-450); RED BLOOD COUNT 4.39 MIL/MM3 (4.00-5.30); RED CELL DISTRIBUTION WIDTH 13.5 % (11.6-17.2); WHITE BLOOD COUNT 7.5 TH/MM3 (4.0-11.0)
[2016-09-16 17:47] LABS: ALKALINE PHOSPHATASE 75 U/L (45-117); TOTAL BILIRUBIN ADULT 0.5 MG/DL (0.2-1.0)
[2016-09-16 17:54] LABS: ALT (GPT) 95 U/L (10-53); ANION GAP 6 MEQ/L (5-15); BICARBONATE 25.7 MEQ/L (21.0-32.0); BLOOD UREA NITROGEN 14 MG/DL (7-18); CHLORIDE 103 MEQ/L (98-107); GLOMERULAR FILTRATION RATE 87 ML/MIN (>89); SODIUM (NA) 135 MEQ/L (136-145)
[2016-09-16 17:55] LABS: AST (GOT) 54 U/L (15-37); POTASSIUM 4.3 MEQ/L (3.5-5.1)
--- NOTE | 2016-09-16 19:59 | PD ---
Physical Exam Date Seen by Provider: Sep 16, 2016 Narrative Patient was seen along with the PA for seizure. Data Data Last Documented VS Vital Signs Date Time Temp Pulse Resp B/P Pulse Ox O2 Delivery O2 Flow Rate FiO2 09/16/16 16:06 97.9 90 18 119/84 100 Orders Complete Blood Count With Diff (09/16/16 16:46) Drug Screen, Random Urine (09/16/16 16:46) Blood Culture (09/16/16 16:46) Electrocardiogram (09/16/16 ) Ecg Monitoring (09/16/16 16:46) Iv Access Insert/Monitor (09/16/16 16:46) Oximetry (09/16/16 16:46) Comprehensive Metabolic Panel (09/16/16 16:46) Sodium Chlor 0.9% 1000 Ml Inj (Ns 1000 M (09/16/16 16:46) Sodium Chloride 0.9% Flush (Ns Flush) (09/16/16 17:00) Urinalysis - C+S If Indicated (09/16/16 16:46) Levetiracetam 1000 Mg Inj (Keppra 1000 M (09/16/16 17:00) Diet Regular Basic (09/16/16 Dinner) Valproic Acid (Depakene) (09/16/16 16:49) Labs Laboratory Tests Test 09/16/16 17:09 White Blood Count 7.5 TH/MM3 Red Blood Count 4.39 MIL/MM3 Hemoglobin 12.5 GM/DL Hematocrit 36.8 % Mean Corpuscular Volume 83.8 FL Mean Corpuscular Hemoglobin 28.5 PG Mean Corpuscular Hemoglobin 34.0 % Concent Red Cell Distribution Width 13.5 % Platelet Count 288 TH/MM3 Mean Platelet Volume 7.7 FL Neutrophils (%) (Auto) 55.5 % Lymphocytes (%) (Auto) 33.9 % Monocytes (%) (Auto) 5.7 % Eosinophils (%) (Auto) 4.1 % Basophils (%) (Auto) 0.8 % Neutrophils # (Auto) 4.2 TH/MM3 Lymphocytes # (Auto) 2.5 TH/MM3 Monocytes # (Auto) 0.4 TH/MM3 Eosinophils # (Auto) 0.3 TH/MM3 Basophils # (Auto) 0.1 TH/MM3 CBC Comment DIFF FINAL Differential Comment Sodium Level 135 MEQ/L Potassium Level 4.3 MEQ/L Chloride Level 103 MEQ/L Carbon Dioxide Level 25.7 MEQ/L Anion Gap 6 MEQ/L Blood Urea Nitrogen 14 MG/DL Creatinine 0.77 MG/DL Estimat Glomerular Filtration 87 ML/MIN Rate Random Glucose 84 MG/DL Calcium Level 8.5 MG/DL Total Bilirubin 0.5 MG/DL Aspartate Amino Transf 54 U/L (AST/SGOT) Alanine Aminotransferase 95 U/L (ALT/SGPT) Alkaline Phosphatase 75 U/L Total Protein 7.6 GM/DL Albumin 3.2 GM/DL MDM Supervised Visit with TASHA: Yes Narrative Course I, Dr. Nix have reviewed the advance practice practitioner's documentation and am in agreement, met with the patient face to face, made the diagnosis, and the medical decision making was done by me. *My assessment and Findings: Patient is lucid. She is quite angry. She is requesting a benzodiazepine. She has been talking with a male on her phone using speaker phone with myself, the PA and RN all in the room. He has tried to talk her into staying for treatment. However, she is adamant that she be allowed to leave AMA. Diagnosis Primary Impression: Seizure disorder Disposition: 07 AGAINST MEDICAL ADVICE Condition: Stable Migdalia Nix MD Sep 16, 2016 19:59
== END 2016-09-16 20:45 | disposition left against medical advice (07) ==
LOC: NEPC 16:01
DX: G40.909 Epilepsy, unspecified, not intractable, without status epilepticus (principal)
CPT/HCPCS: 80053; 80164; 85025; 87040; 99284

== ENCOUNTER 2016-11-08 23:27 | Emergency (ER) | payer SELFPAY ==
[~2016-11-08] VITALS: Ht 162.6 cm; Wt 61.0 kg
[2016-11-08 23:28] VITALS: BP 119/90; PULSE 87; RESP 16; TEMP 97; O2SAT 100
--- NOTE | 2016-11-09 04:02 | PD ---
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 Patient reports that she thinks that she is about 3 months , reports that for the past month, she has been having intermittent abdominal cramping with nausea and vomiting. Patient's friend urged her to take a home test today and patient reports "it was positive." Patient concerned as she does abuse IV Dilaudid. Patient requesting inpatient detox from opioids. Patient with no abdominal pain at this time. Denies vaginal bleeding or discharge. Denies fever/chills. NO other c/o. PFSH Past Medical History Arthritis: No Asthma: No Autoimmune Disease: No Anxiety: Yes Depression: Yes Heart Rhythm Problems: No Cancer: No Cardiovascular Problems: Yes (ENDOCARDITIS ) High Cholesterol: No Chest Pain: Yes Congestive Heart Failure: No COPD: No Cerebrovascular Accident: No Diminished Hearing: No Endocrine: No GERD: No Genitourinary: No Hiatal Hernia: No Immune Disorder: No Musculoskeletal: No Neurologic: Yes Psychiatric: Yes Reproductive: No Respiratory: No Immunizations Current: Yes Migraines: No Seizures: Yes Sleep Apnea: No Ulcer: No Tetanus Vaccination: < 5 Years Influenza Vaccination: No ?: LMP: LAST IN EARLY AUGUST : 1 Para: 1 Past Surgical History Abdominal Surgery: Yes (appendix) AICD: No Appendectomy: Yes (2006) Arteriovenous Shunt: No Cardiac Surgery: No Ear Surgery: No Endocrine Surgery: No Eye Surgery: No Genitourinary Surgery: No Gynecologic Surgery: No Insulin Pump: No Joint Replacement: No Oral Surgery: No Pacemaker: No Thoracic Surgery: No Other Surgery: Yes Social History Alcohol Use: Yes Tobacco Use: Yes Substance Use: Yes Allergies-Medications (Allergen,Severity, Reaction): Coded Allergies: Tramadol (Unverified Allergy, Severe, SEIZURE, 11/09/16) Tylenol (Verified Allergy, Severe, Hives, 11/09/16) VOMITING *MDRO Multi-Drug Resistant Organism (Unverified Adverse Reaction, Unknown , 11/09/16) MRSA (wound) 07/2014; MRSA (leg abscess)-02/12/17 Reported Meds & Prescriptions Reported Meds & Active Scripts Active No Active Prescriptions or Reported Medications Review of Systems General / Constitutional: No: Fever Eyes: No: Visual changes HENT: No: Headaches Cardiovascular: No: Chest Pain or Discomfort Respiratory: No: Shortness of Breath Gastrointestinal: Positive: Nausea, Vomiting, No: Abdominal Pain Genitourinary: Positive: Other (), No: Urgency, Frequency, Dysuria, Vaginal Bleeding Musculoskeletal: No: Pain Skin: No Rash Neurologic: No: Weakness Psychiatric: No: Depression Endocrine: No: Polydipsia Hematologic/Lymphatic: No: Easy Bruising Physical Exam Narrative GENERAL: NAD, nontoxic SKIN: Focused skin assessment warm/dry. HEAD: Atraumatic. Normocephalic. EYES: Pupils equal and round. ENT: No nasal bleeding or discharge. Mucous membranes pink and moist. NECK: Trachea midline. No JVD. CARDIOVASCULAR: Regular rate and rhythm. No murmur appreciated. RESPIRATORY: No accessory muscle use. Clear to auscultation. Breath sounds equal bilaterally. GASTROINTESTINAL: Abdomen soft, non-tender, nondistended. Hepatic and splenic margins not palpable. MUSCULOSKELETAL: No obvious deformities. No clubbing. No cyanosis. No edema. NEUROLOGICAL: Awake and alert. Normal speech. PSYCHIATRIC: Appropriate mood and affect; insight and judgment normal. Data Data Last Documented VS Vital Signs Date Time Temp Pulse Resp B/P Pulse Ox O2 Delivery O2 Flow Rate FiO2 11/09/16 05:14 80 16 120/76 100 11/08/16 23:28 97.0 Orders Complete Blood Count With Diff (11/09/16 03:35) Comprehensive Metabolic Panel (11/09/16 03:35) Beta Hcg (Quant/Titer) (11/09/16 03:35) Urinalysis - C+S If Indicated (11/09/16 03:35) Drug Screen, Random Urine (11/09/16 03:35) Ed Urine Pregnancytest Poc (11/09/16 03:49) Labs Laboratory Tests Test 11/09/16 11/09/16 03:15 03:20 Urine Color LIGHT-YELLOW Urine Turbidity HAZY Urine pH 5.0 Urine Specific [place] 1.014 Urine Protein NEG mg/dL Urine Glucose (UA) NEG mg/dL Urine Ketones NEG mg/dL Urine Occult Blood NEG Urine Nitrite NEG Urine Bilirubin NEG Urine Urobilinogen LESS THAN 2.0 MG/DL Urine Leukocyte Esterase MOD Urine RBC 6 /hpf Urine WBC 3 /hpf Urine Squamous Epithelial 25 /hpf Cells Urine Bacteria RARE /hpf Urine Mucus FEW /lpf Microscopic Urinalysis Comment CULT NOT INDICATED Urine Opiates Screen NEG Urine Barbiturates Screen NEG Urine Amphetamines Screen POS Urine Benzodiazepines Screen POS Urine Cocaine Screen NEG Urine Cannabinoids Screen NEG White Blood Count 9.3 TH/MM3 Red Blood Count 4.78 MIL/MM3 Hemoglobin 13.6 GM/DL Hematocrit 40.2 % Mean Corpuscular Volume 84.1 FL Mean Corpuscular Hemoglobin 28.4 PG Mean Corpuscular Hemoglobin 33.8 % Concent Red Cell Distribution Width 14.4 % Platelet Count 258 TH/MM3 Mean Platelet Volume 7.7 FL Neutrophils (%) (Auto) 54.4 % Lymphocytes (%) (Auto) 38.3 % Monocytes (%) (Auto) 5.1 % Eosinophils (%) (Auto) 1.6 % Basophils (%) (Auto) 0.6 % Neutrophils # (Auto) 5.1 TH/MM3 Lymphocytes # (Auto) 3.6 TH/MM3 Monocytes # (Auto) 0.5 TH/MM3 Eosinophils # (Auto) 0.1 TH/MM3 Basophils # (Auto) 0.1 TH/MM3 CBC Comment DIFF FINAL Differential Comment Sodium Level 135 MEQ/L Potassium Level 3.5 MEQ/L Chloride Level 104 MEQ/L Carbon Dioxide Level 21.6 MEQ/L Anion Gap 9 MEQ/L Blood Urea Nitrogen 12 MG/DL Creatinine 0.58 MG/DL Estimat Glomerular Filtration 120 ML/MIN Rate Random Glucose 78 MG/DL Calcium Level 8.6 MG/DL Total Bilirubin 0.2 MG/DL Aspartate Amino Transf 38 U/L (AST/SGOT) Alanine Aminotransferase 63 U/L (ALT/SGPT) Alkaline Phosphatase 63 U/L Total Protein 7.6 GM/DL Albumin 3.1 GM/DL Human Chorionic Gonadotropin, [address] MIU/ML Quant MDM Medical Decision Making Medical Screen Exam Complete: Yes Emergency Medical Condition: Yes Interpretation(s) Vital Signs Date Time Temp Pulse Resp B/P Pulse Ox O2 Delivery O2 Flow Rate FiO2 11/09/16 00:46 16 11/08/16 23:28 97.0 87 16 119/90 100 Differential Diagnosis Opiate withdrawal, early , UTI Narrative Course 31 year old female who presents to ER with c/o of and opioid dependence. Patient reports that she is an IV drug abuser, reports concerns her drug abuse and . Patient requests lab work to confirm her to see how far along she is. Patient also requests inpatient detox at this time. Labs as well as hCG Quant ordered, patient with no abdominal pain at this time. Will provide patient with information for detox Laboratory Tests Test 11/09/16 11/09/16 03:15 03:20 Urine Color LIGHT-YELLOW (YELLW/STRAW) Urine Turbidity HAZY (CLEAR) Urine pH 5.0 (5.0-8.5) Urine Specific [place] 1.014 (1.002-1.035) Urine Protein NEG mg/dL (NEG-TRACE) Urine Glucose (UA) NEG mg/dL (NEG) Urine Ketones NEG mg/dL (NEG) Urine Occult Blood NEG (NEG) Urine Nitrite NEG (NEG) Urine Bilirubin NEG (NEG) Urine Urobilinogen LESS THAN 2.0 MG/DL (LESS THAN 2.0) Urine Leukocyte Esterase MOD (NEG) Urine RBC 6 /hpf (0-3) Urine WBC 3 /hpf (0-5) Urine Squamous Epithelial 25 /hpf (0-5) Cells Urine Bacteria RARE /hpf (NONE) Urine Mucus FEW /lpf (OCC) Microscopic Urinalysis Comment CULT NOT INDICATED Urine Opiates Screen NEG (NEG) Urine Barbiturates Screen NEG (NEG) Urine Amphetamines Screen POS (NEG) Urine Benzodiazepines Screen POS (NEG) Urine Cocaine Screen NEG (NEG) Urine Cannabinoids Screen NEG (NEG) White Blood Count 9.3 TH/MM3 (4.0-11.0) Red Blood Count 4.78 MIL/MM3 (4.00-5.30) Hemoglobin 13.6 GM/DL (11.6-15.3) Hematocrit 40.2 % (35.0-46.0) Mean Corpuscular Volume 84.1 FL (80.0-100.0) Mean Corpuscular Hemoglobin 28.4 PG (27.0-34.0) Mean Corpuscular Hemoglobin 33.8 % Concent (32.0-36.0) Red Cell Distribution Width 14.4 % (11.6-17.2) Platelet Count 258 TH/MM3 (150-450) Mean Platelet Volume 7.7 FL (7.0-11.0) Neutrophils (%) (Auto) 54.4 % (16.0-70.0) Lymphocytes (%) (Auto) 38.3 % (9.0-44.0) Monocytes (%) (Auto) 5.1 % (0.0-8.0) Eosinophils (%) (Auto) 1.6 % (0.0-4.0) Basophils (%) (Auto) 0.6 % (0.0-2.0) Neutrophils # (Auto) 5.1 TH/MM3 (1.8-7.7) Lymphocytes # (Auto) 3.6 TH/MM3 (1.0-4.8) Monocytes # (Auto) 0.5 TH/MM3 (0-0.9) Eosinophils # (Auto) 0.1 TH/MM3 (0-0.4) Basophils # (Auto) 0.1 TH/MM3 (0-0.2) CBC Comment DIFF FINAL Differential Comment Sodium Level 135 MEQ/L (136-145) Potassium Level 3.5 MEQ/L (3.5-5.1) Chloride Level 104 MEQ/L (98-107) Carbon Dioxide Level 21.6 MEQ/L (21.0-32.0) Anion Gap 9 MEQ/L (5-15) Blood Urea Nitrogen 12 MG/DL (7-18) Creatinine 0.58 MG/DL (0.50-1.00) Estimat Glomerular Filtration 120 ML/MIN Rate (>89) Random Glucose 78 MG/DL (74-106) Calcium Level 8.6 MG/DL (8.5-10.1) Total Bilirubin 0.2 MG/DL (0.2-1.0) Aspartate Amino Transf 38 U/L (15-37) (AST/SGOT) Alanine Aminotransferase 63 U/L (10-53) (ALT/SGPT) Alkaline Phosphatase 63 U/L (45-117) Total Protein 7.6 GM/DL (6.4-8.2) Albumin 3.1 GM/DL (3.4-5.0) Human Chorionic Gonadotropin, 437[address] MIU/ML Quant (0-5) 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 Signs and symptoms of when to return to the emergency room was reviewed with patient in detail. Diagnosis Primary Impression: Additional Impression: medical cleared Patient Instructions: General Instructions Scripts No Active Prescriptions or Reported Meds Disposition: 01 DISCHARGE HOME Condition: Stable Genna Muro DO Nov 09, 2016 04:02
[2016-11-09 04:06] LABS: BACTERIA, URINE RARE /hpf; BLOOD, URINE NEG (NEG); COMMENT (UR) CULT NOT INDICATED; CULTURE IF INDICATED CULT NOT INDICATED; GLUCOSE,URINE NEG (NEG); KETONE, URINE NEG (NEG); MUCUS URINE FEW /lpf (OCC); NITRITE,URINE NEG (NEG); SQUAMOUS EPITHELIAL CELL URINE 25 /hpf (0-5); URINE COLOR LIGHT-YELLOW (YELLW/STRAW)
[2016-11-09 04:13] LABS: AMPHETAMINE, URINE POS (NEG); BARBITURATES, URINE NEG (NEG); COCAINE, URINE NEG (NEG)
[2016-11-09 04:16] LABS: AUTOMATED NEUTROPHIL # 5.1 TH/MM3 (1.8-7.7); BASOPHIL # 0.1 TH/MM3 (0-0.2); BASOPHIL % 0.6 % (0.0-2.0); EOSINOPHIL # 0.1 TH/MM3 (0-0.4); EOSINOPHIL % 1.6 % (0.0-4.0); HEMATOCRIT 40.2 % (35.0-46.0); HEMO FLAGS DIFF FINAL; LYMPH % 38.3 % (9.0-44.0); LYMPHOCYTE # 3.6 TH/MM3 (1.0-4.8); MEAN CELL VOLUME 84.1 FL (80.0-100.0); MEAN CORPUSCULAR HEMOGLOBIN 28.4 PG (27.0-34.0); MEAN CORPUSCULAR HGB CONC 33.8 % (32.0-36.0); MONO % 5.1 % (0.0-8.0); NEUT % 54.4 % (16.0-70.0); PLATELET COUNT 258 TH/MM3 (150-450); RED BLOOD COUNT 4.78 MIL/MM3 (4.00-5.30); RED CELL DISTRIBUTION WIDTH 14.4 % (11.6-17.2); WHITE BLOOD COUNT 9.3 TH/MM3 (4.0-11.0)
[2016-11-09 04:25] LABS: ALT (GPT) 63 U/L (10-53); ANION GAP 9 MEQ/L (5-15); AST (GOT) 38 U/L (15-37); BICARBONATE 21.6 MEQ/L (21.0-32.0); BLOOD UREA NITROGEN 12 MG/DL (7-18); CHLORIDE 104 MEQ/L (98-107); GLOMERULAR FILTRATION RATE 120 ML/MIN (>89); POTASSIUM 3.5 MEQ/L (3.5-5.1); SODIUM (NA) 135 MEQ/L (136-145)
[2016-11-09 04:41] LABS: ALKALINE PHOSPHATASE 63 U/L (45-117); BETA HCG QUANT 46444 MIU/ML (0-5); TOTAL BILIRUBIN ADULT 0.2 MG/DL (0.2-1.0)
[2016-11-09 05:14] VITALS: BP 120/76
== END 2016-11-09 05:14 | disposition home or self-care (01) ==
LOC: NEPC 23:27
DX: O99.320 Drug use complicating pregnancy, unspecified trimester (principal); F11.20 Opioid dependence, uncomplicated; R10.9 Unspecified abdominal pain; Z3A.00 Weeks of gestation of pregnancy not specified
CPT/HCPCS: 80053; 80307; 81001; 84702; 84703; 85025; 99283

== ENCOUNTER 2016-11-18 23:52 | Emergency (ER) | payer SELFPAY ==
[2016-11-19 00:12] VITALS: BP 110/68; PULSE 87; RESP 18; TEMP 98; O2SAT 97
[2016-11-19] MEDS ORDERED: SODIUM CHLOR 0.9% 1000 ML INJ 1,000 ML IV ONE (01:45)
[2016-11-19] MEDS ORDERED: ONDANSETRON HCL 4 MG/2 ML VIAL IV PUSH ONE (01:45)
--- NOTE | 2016-11-19 01:46 | PD ---
HPI Chief Complaint: Seizure Time Seen by Provider: 01:29 Travel History International Travel<30 days: No Contact w/Intl Traveler<30days: No Traveled to known affect area: No History of Present Illness HPI The patient is a 31-year-old female who presents to the emergency department via EMS for [facility]. EMS states that the patient's original call was for drug overdose. However, the boyfriend states that the patient went into the bathroom and would not come out. The patient does have a history of IVDA with Dilaudid. The patient's boyfriend states there was no obvious needles , thought possibly she could've had a seizure. The patient has no history of seizures, has been somewhat sedated and lethargic since arrival according to nursing staff. The patient will awaken and answer questions, but then falls asleep. The patient is , was seen in emergency department several days ago and noted to have a positive beta hCG. The patient has not followed up with an rubber cutter and shape carver. The patient states she denies any IV drugs today, but did take Xanax which she is prescribed and Suboxone, which she is not prescribed. The patient denies any chest pain, shortness of breath, however, the boyfriend does note the patient is had some nausea and vomiting since the . She denies any associated dysuria. PFSH Past Medical History Arthritis: No Asthma: No Autoimmune Disease: No Anxiety: Yes Depression: Yes Heart Rhythm Problems: No Cancer: No Cardiovascular Problems: Yes (ENDOCARDITIS ) High Cholesterol: No Chest Pain: Yes Congestive Heart Failure: No COPD: No Cerebrovascular Accident: No Diminished Hearing: No Endocrine: No GERD: No Genitourinary: No Hiatal Hernia: No Immune Disorder: No Musculoskeletal: No Neurologic: Yes Psychiatric: Yes Reproductive: No Respiratory: No Immunizations Current: Yes Migraines: No Seizures: Yes Sleep Apnea: No Ulcer: No ?: LMP: UNKNOWN : 1 Para: 1 Past Surgical History Abdominal Surgery: Yes (appendix) AICD: No Appendectomy: Yes (2006) Arteriovenous Shunt: No Cardiac Surgery: No Ear Surgery: No Endocrine Surgery: No Eye Surgery: No Genitourinary Surgery: No Gynecologic Surgery: No Insulin Pump: No Joint Replacement: No Oral Surgery: No Pacemaker: No Thoracic Surgery: No Other Surgery: Yes Social History Alcohol Use: Yes Tobacco Use: Yes Substance Use: Yes Allergies-Medications (Allergen,Severity, Reaction): Coded Allergies: Tramadol (Unverified Allergy, Severe, SEIZURE, 11/19/16) Tylenol (Verified Allergy, Severe, Hives, 11/19/16) VOMITING *MDRO Multi-Drug Resistant Organism (Unverified Adverse Reaction, Unknown , 11/19/16) MRSA (wound) 07/2014; MRSA (leg abscess)-09/11/16 Reported Meds & Prescriptions Reported Meds & Active Scripts Active No Active Prescriptions or Reported Medications Review of Systems Except as stated in HPI: all other systems reviewed are Neg General / Constitutional: No: Fever HENT: No: Lightheadedness Cardiovascular: No: Chest Pain or Discomfort Respiratory: No: Shortness of Breath Gastrointestinal: Positive: Nausea, Vomiting, No: Abdominal Pain Genitourinary: Positive: Other () Musculoskeletal: Positive: Weakness Neurologic: Positive: Weakness Psychiatric: Positive: Substance Abuse Physical Exam Narrative GENERAL: Awake, alert, nontoxic-appearing 31-year-old female who is somewhat lethargic, will awaken and answer questions, and falls asleep once again. SKIN: Focused skin assessment warm/dry. Tract springer noted on the left forearm and left ECF. HEAD: Atraumatic. Normocephalic. EYES: Pupils equal and round. Pupils are 2 mm bilateral and reactive. ENT: No nasal bleeding or discharge. Mucous membranes pink and moist. No visible tongue laceration. NECK: Trachea midline. No JVD. CARDIOVASCULAR: Regular rate and rhythm. No murmur appreciated. Heart rate in the 80s. RESPIRATORY: No accessory muscle use. Clear to auscultation. Breath sounds equal bilaterally. GASTROINTESTINAL: Abdomen soft, non-tender, nondistended. No rebound tenderness.. MUSCULOSKELETAL: No obvious deformities. No clubbing. No cyanosis. No edema. NEUROLOGICAL: Slightly lethargic, no obvious cranial nerve deficits. Moves all 4 extremities. Oriented to person, place, month, year, and president of [facility]. PSYCHIATRIC: Appropriate mood and affect; insight and judgment normal. Data Data Last Documented VS Vital Signs Date Time Temp Pulse Resp B/P Pulse Ox O2 Delivery O2 Flow Rate FiO2 11/19/16 02:58 86 16 127/78 98 Room Air 11/19/16 00:12 98.0 Orders Ed Urine Pregnancytest Poc (11/19/16 01:34) Complete Blood Count With Diff (11/19/16 01:38) Comprehensive Metabolic Panel (11/19/16 01:38) Lactic Acid (11/19/16 01:38) Sodium Chlor 0.9% 1000 Ml Inj (Ns 1000 M (11/19/16 01:45) Ondansetron Inj (Zofran Inj) (11/19/16 01:45) Drug Screen, Random Urine (11/19/16 01:38) Naloxone Inj (Narcan Inj) (11/19/16 02:00) Labs Laboratory Tests Test 11/19/16 11/19/16 11/19/16 02:00 02:25 02:40 White Blood Count 6.4 TH/MM3 Red Blood Count 4.56 MIL/MM3 Hemoglobin 13.4 GM/DL Hematocrit 38.2 % Mean Corpuscular Volume 83.8 FL Mean Corpuscular Hemoglobin 29.4 PG Mean Corpuscular Hemoglobin 35.1 % Concent Red Cell Distribution Width 14.1 % Platelet Count 229 TH/MM3 Mean Platelet Volume 7.9 FL Neutrophils (%) (Auto) 59.7 % Lymphocytes (%) (Auto) 31.3 % Monocytes (%) (Auto) 6.5 % Eosinophils (%) (Auto) 2.0 % Basophils (%) (Auto) 0.5 % Neutrophils # (Auto) 3.8 TH/MM3 Lymphocytes # (Auto) 2.0 TH/MM3 Monocytes # (Auto) 0.4 TH/MM3 Eosinophils # (Auto) 0.1 TH/MM3 Basophils # (Auto) 0.0 TH/MM3 CBC Comment DIFF FINAL Differential Comment Sodium Level 135 MEQ/L Potassium Level 3.5 MEQ/L Chloride Level 102 MEQ/L Carbon Dioxide Level 23.6 MEQ/L Anion Gap 9 MEQ/L Blood Urea Nitrogen 12 MG/DL Creatinine 0.66 MG/DL Estimat Glomerular Filtration 104 ML/MIN Rate Random Glucose 68 MG/DL Calcium Level 8.4 MG/DL Total Bilirubin 0.5 MG/DL Aspartate Amino Transf 116 U/L (AST/SGOT) Alanine Aminotransferase 148 U/L (ALT/SGPT) Alkaline Phosphatase 56 U/L Total Protein 7.4 GM/DL Albumin 3.2 GM/DL Lactic Acid Level 0.5 mmol/L Urine Opiates Screen POS Urine Barbiturates Screen NEG Urine Amphetamines Screen POS Urine Benzodiazepines Screen POS Urine Cocaine Screen NEG Urine Cannabinoids Screen NEG MDM Medical Decision Making Medical Screen Exam Complete: Yes Emergency Medical Condition: Yes Medical Record Reviewed: Yes Interpretation(s) Laboratory Tests Test 11/19/16 11/19/16 11/19/16 02:00 02:25 02:40 White Blood Count 6.4 TH/MM3 Red Blood Count 4.56 MIL/MM3 Hemoglobin 13.4 GM/DL Hematocrit 38.2 % Mean Corpuscular Volume 83.8 FL Mean Corpuscular Hemoglobin 29.4 PG Mean Corpuscular Hemoglobin 35.1 % Concent Red Cell Distribution Width 14.1 % Platelet Count 229 TH/MM3 Mean Platelet Volume 7.9 FL Neutrophils (%) (Auto) 59.7 % Lymphocytes (%) (Auto) 31.3 % Monocytes (%) (Auto) 6.5 % Eosinophils (%) (Auto) 2.0 % Basophils (%) (Auto) 0.5 % Neutrophils # (Auto) 3.8 TH/MM3 Lymphocytes # (Auto) 2.0 TH/MM3 Monocytes # (Auto) 0.4 TH/MM3 Eosinophils # (Auto) 0.1 TH/MM3 Basophils # (Auto) 0.0 TH/MM3 CBC Comment DIFF FINAL Differential Comment Sodium Level 135 MEQ/L Potassium Level 3.5 MEQ/L Chloride Level 102 MEQ/L Carbon Dioxide Level 23.6 MEQ/L Anion Gap 9 MEQ/L Blood Urea Nitrogen 12 MG/DL Creatinine 0.66 MG/DL Estimat Glomerular Filtration 104 ML/MIN Rate Random Glucose 68 MG/DL Calcium Level 8.4 MG/DL Total Bilirubin 0.5 MG/DL Aspartate Amino Transf 116 U/L (AST/SGOT) Alanine Aminotransferase 148 U/L (ALT/SGPT) Alkaline Phosphatase 56 U/L Total Protein 7.4 GM/DL Albumin 3.2 GM/DL Lactic Acid Level 0.5 mmol/L Urine Opiates Screen POS Urine Barbiturates Screen NEG Urine Amphetamines Screen POS Urine Benzodiazepines Screen POS Urine Cocaine Screen NEG Urine Cannabinoids Screen NEG Differential Diagnosis Differential diagnosis includes Suboxone overdose, opiate overdose, polysubstance abuse, seizure, lactic acidosis, electrolytes abnormality, hyponatremia, dehydration, UTI. Narrative Course IV was established, labs were drawn and sent, and the patient was placed on cardiac telemetry monitoring and continuous pulse oximetry monitoring. The patient does appear to have 1-2 mm pupils bilateral, took Suboxone, therefore, Narcan 0.4 mg intravenously was administered. The patient was administered 1 L of IV fluids and Zofran 4 mg intravenously. The patient responded to Narcan 0.4 mg, instantly was more awake, but then was tearful. It appears the patient had a Suboxone overdose. The patient will be monitored in the emergency department, she remained stable, she'll be discharged home. Patient's tox screen is positive for opiates, amphetamines, and benzodiazepines. Lites are unremarkable. Patient will be discharged home. She is advised to take a vitamin and a follow-up with her primary physician. Diagnosis Primary Impression: Narcotic abuse Patient Instructions: General Instructions Additional Instructions: Stop using drugs. Take a vitamin daily. Follow-up with your SOCIAL STUDIES DEPARTMENT CHAIR. Med/Other Pt SpecificInfo: No Change to Meds Scripts No Active Prescriptions or Reported Meds Disposition: 01 DISCHARGE HOME Condition: Stable Sushant Glez MD Nov 19, 2016 01:46
[2016-11-19] MEDS ORDERED: NALOXONE HCL 0.4 MG/ML AMP IV PUSH ONE (02:00)
[2016-11-19 02:21] LABS: AUTOMATED NEUTROPHIL # 3.8 TH/MM3 (1.8-7.7); BASOPHIL % 0.5 % (0.0-2.0); EOSINOPHIL # 0.1 TH/MM3 (0-0.4); HEMATOCRIT 38.2 % (35.0-46.0); HEMO FLAGS DIFF FINAL; LYMPH % 31.3 % (9.0-44.0); MEAN CELL VOLUME 83.8 FL (80.0-100.0); MEAN CORPUSCULAR HEMOGLOBIN 29.4 PG (27.0-34.0); MEAN CORPUSCULAR HGB CONC 35.1 % (32.0-36.0); MONO % 6.5 % (0.0-8.0); NEUT % 59.7 % (16.0-70.0); PLATELET COUNT 229 TH/MM3 (150-450); RED BLOOD COUNT 4.56 MIL/MM3 (4.00-5.30); RED CELL DISTRIBUTION WIDTH 14.1 % (11.6-17.2); WHITE BLOOD COUNT 6.4 TH/MM3 (4.0-11.0)
[2016-11-19 02:37] LABS: ALT (GPT) 148 U/L (10-53); ANION GAP 9 MEQ/L (5-15); AST (GOT) 116 U/L (15-37); BICARBONATE 23.6 MEQ/L (21.0-32.0); BLOOD UREA NITROGEN 12 MG/DL (7-18); CHLORIDE 102 MEQ/L (98-107); GLOMERULAR FILTRATION RATE 104 ML/MIN (>89); POTASSIUM 3.5 MEQ/L (3.5-5.1); SODIUM (NA) 135 MEQ/L (136-145)
[2016-11-19 02:40] LABS: ALKALINE PHOSPHATASE 56 U/L (45-117); TOTAL BILIRUBIN ADULT 0.5 MG/DL (0.2-1.0)
[2016-11-19 02:58] VITALS: BP 127/78; PULSE 86; RESP 16; O2SAT 98
[2016-11-19 03:03] LABS: AMPHETAMINE, URINE POS (NEG); BARBITURATES, URINE NEG (NEG); COCAINE, URINE NEG (NEG)
== END 2016-11-19 04:33 | disposition home or self-care (01) ==
LOC: NEPC 23:52
DX: F11.10 Opioid abuse, uncomplicated (principal)
CPT/HCPCS: 80053; 80307; 83605; 84703; 85025; 96361; 96374; 96375; 99284; J2310; J2405; J7030

== ENCOUNTER 2017-01-19 09:29 | Emergency (ER) | payer SELFPAY ==
[~2017-01-19] VITALS: Ht 162.6 cm; Wt 62.0 kg
[2017-01-19 09:30] VITALS: BP 114/57; PULSE 78; RESP 13; TEMP 98.5; O2SAT 96
--- NOTE | 2017-01-19 09:52 | PD ---
HPI Chief Complaint: Skin Problem Time Seen by Provider: 09:49 Travel History International Travel<30 days: No Contact w/Intl Traveler<30days: No Traveled to known affect area: No History of Present Illness HPI 31-year-old female presents the emergency department with history of bedbug bites. Patient stating a local motel and is had visual contact with bedbugs with localized redness and itching. 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 Patient currently has minimal symptoms. She has no fever, chills, or other symptoms. She is . She is allergic to tramadol and Tylenol. Has a history of MRSA. PFSH Past Medical History Arthritis: No Asthma: No Autoimmune Disease: No Anxiety: Yes Depression: Yes Heart Rhythm Problems: No Cancer: No Cardiovascular Problems: Yes (ENDOCARDITIS ) High Cholesterol: No Chest Pain: Yes Congestive Heart Failure: No COPD: No Cerebrovascular Accident: No Diminished Hearing: No Endocrine: No GERD: No Genitourinary: No Hiatal Hernia: No Immune Disorder: No Musculoskeletal: No Neurologic: Yes Psychiatric: Yes Reproductive: No Respiratory: No Immunizations Current: Yes Migraines: No Seizures: Yes Sleep Apnea: No Ulcer: No ?: : 1 Para: 1 Past Surgical History Abdominal Surgery: Yes (appendix) AICD: No Appendectomy: Yes (2006) Arteriovenous Shunt: No Cardiac Surgery: No Ear Surgery: No Endocrine Surgery: No Eye Surgery: No Genitourinary Surgery: No Gynecologic Surgery: No Insulin Pump: No Joint Replacement: No Oral Surgery: No Pacemaker: No Thoracic Surgery: No Other Surgery: Yes Social History Alcohol Use: Yes Tobacco Use: Yes Substance Use: Yes Allergies-Medications (Allergen,Severity, Reaction): Coded Allergies: Tramadol (Unverified Allergy, Severe, SEIZURE, 01/19/17) Tylenol (Verified Allergy, Severe, Hives, 01/19/17) VOMITING *MDRO Multi-Drug Resistant Organism (Unverified Adverse Reaction, Unknown , 01/19/17) MRSA (wound) 07/2014; MRSA (leg abscess)-09/11/16 Reported Meds & Prescriptions Reported Meds & Active Scripts Active No Active Prescriptions or Reported Medications Review of Systems Except as stated in HPI: all other systems reviewed are Neg General / Constitutional: No: Fever Eyes: No: Visual changes HENT: No: Headaches Cardiovascular: No: Chest Pain or Discomfort Respiratory: No: Shortness of Breath Gastrointestinal: No: Abdominal Pain Genitourinary: No: Dysuria Musculoskeletal: No: Pain Skin: Positive Rash, Positive Itching Neurologic: No: Weakness Psychiatric: No: Depression Endocrine: No: Polydipsia Hematologic/Lymphatic: No: Easy Bruising Physical Exam Narrative GENERAL: Patient is in no acute distress. SKIN: Warm and dry. Patient has several small erythematous bites consistent with bedbugs, without localized cellulitis, lymphangitis, or abscess. HEAD: Atraumatic. Normocephalic. EYES: Pupils equal and round. No scleral icterus. No injection or drainage. ENT: No nasal bleeding or discharge. Mucous membranes pink and moist. NECK: Trachea midline. Supple nontender. CARDIOVASCULAR: Regular rate and rhythm. RESPIRATORY: No accessory muscle use. Clear to auscultation. Breath sounds equal bilaterally. GASTROINTESTINAL: Abdomen soft, non-tender, nondistended. Hepatic and splenic margins not palpable. MUSCULOSKELETAL: Extremities without clubbing, cyanosis, or edema. No obvious deformities. NEUROLOGICAL: Awake and alert. No obvious cranial nerve deficits. Motor grossly within normal limits. Five out of 5 muscle strength in the arms and legs. Normal speech. PSYCHIATRIC: Appropriate mood and affect; insight and judgment normal. Data Data Last Documented VS Vital Signs Date Time Temp Pulse Resp B/P Pulse Ox O2 Delivery O2 Flow Rate FiO2 01/19/17 09:30 98.5 78 13 114/57 96 MDM Medical Decision Making Medical Screen Exam Complete: Yes Emergency Medical Condition: Yes Differential Diagnosis Insect bite. The bug bite. Pruritus. Narrative Course A medical screening exam was performed: At the time of evaluation the presenting medical condition was determined not to be of an emergent nature. The patient was given the option of receiving additional care, but declined. Patient was given options for additional community resources from which to obtain care. The Patient Has Been advised to seek medical attention for their presenting complaint. The patient has been advised to return to the ER at any time if an emergent condition develops. Scripts No Active Prescriptions or Reported Meds Condition: Stable Kalen Hidalgo Jan 19, 2017 09:52
== END 2017-01-19 10:04 | disposition left against medical advice (07) ==
LOC: NEPK 09:29
DX: L98.8 Other specified disorders of the skin and subcutaneous tissue (principal)
CPT/HCPCS: 99281

== ENCOUNTER 2017-02-20 18:14 | Emergency (ER) | payer SELFPAY ==
[2017-02-20 18:28] VITALS: BP 118/70; PULSE 112; RESP 24; TEMP 98.3; O2SAT 97
--- NOTE | 2017-02-20 21:11 | PD ---
HPI Chief Complaint Abdominal pain and leg discomfort and swelling Date Seen: Feb 20, 2017 Travel History International Travel<30 Days: No Contact w/Intl Traveler<30Days: No Known Affected Area: No History of Present Illness HPI 32-year-old white female at [address] Odell due to her drug history who presents complaining of abdominal pain and that her legs are uncomfortable bed bug bites and its caused her legs to swell, she denies contractions leakage of fluid or vaginal bleeding. Para: 1 : 2 History Obstetric History Obstetric History One vaginal delivery Social History Narrative Social History History of multidrug use it now in rehabilitation and seen Dr. Odell because of that Alcohol Use: Yes Tobacco Use: Yes Substance Abuse: Yes Allergies-Medications (Allergen,Severity, Reaction): Coded Allergies: Tramadol (Unverified Allergy, Severe, SEIZURE, 01/19/17) Tylenol (Verified Allergy, Severe, Hives, 01/19/17) VOMITING *MDRO Multi-Drug Resistant Organism (Unverified Adverse Reaction, Unknown , 01/19/17) MRSA (wound) 07/2014; MRSA (leg abscess)-09/11/16 Home Meds No Active Prescriptions or Reported Meds Review of Systems General / Constitutional: No: Fever, Weight Gain, Chills, Other Eyes: No: Diploplia, Blurred Vision, Visual changes, Pain, Photophobia HENT: No: Headaches, Vertigo, Lightheadedness Cardiovascular: No: Irregular Rhythm, Chest Pain or Discomfort, Palpitations, Tachycardia, Syncope, Varicosities, Edema, Cyanosis Respiratory: No: Cough, Short of Breath, Other Gastrointestinal: Abdominal Pain, No: Nausea, Vomiting, Diarrhea Genitourinary: No: Decreased Urinary Output, Oliguria Musculoskeletal: Edema, Pain, Other, No: Limited ROM, Weakness, Cramping Skin: No Rash, No Itching, No Dryness, No Lumps, No Change in Pigmentation, No Change in Nails, No Alopecia, No Lesions Neurologic: No: Weakness, Dizziness, Syncope, Focal Abnormalities, Coordination Problem, Headache, Slurred Speech, Seizures Psychiatric: No: Depression, Suicidal Ideations, Homicidal Ideation Endocrine: No: Heat Intolerance, Cold Intolerance, Polydipsia, Polyuria, Other Physical Exam Vital Signs Date Time Temp Pulse Resp B/P Pulse Ox O2 Delivery O2 Flow Rate FiO2 02/20/17 18:28 98.3 112 24 118/70 97 Room Air Narrative GENERAL: Well-nourished, well-developed lethargic patient. SKIN: Warm and dry. HEAD: Normocephalic and atraumatic. EYES: No scleral icterus. No injection or drainage. ENT: No nasal drainage noted. Mucous membranes pink. Airway patent. NECK: Supple, trachea midline. No JVD. CARDIOVASCULAR: Regular rate and rhythm without murmurs, gallops, or rubs. RESPIRATORY: Breath sounds equal bilaterally. No accessory muscle use. BREASTS: Bilateral exam showed no masses , no retractions, no nipple discharge. ABDOMEN/GI: Abdomen soft, non-tender, bowel sounds present, no rebound, no guarding Gravid to [27-] weeks size Fundal Height: [-27] GENITOURINARY: External Genitalia: intact and normal in appearance BUS glands: [-] Cervix: [Closed-] Dilatation: [-Closed] Effacement: [-] Thick Station: [-3] Membranes: [intact ] Uterine Contractions: [-none] FHT's: Category: [1-] Baseline: [133-] Reactive: [-yes] Variability: [-mod] Decels: [none-] EXTREMITIES: No cyanosis Lower extremities below the knee are of somewhat erythematous swollen of 1+ tender anterior surface there's petechial rash bilaterally with the appearance of cellulitis both legs BACK: Nontender without obvious deformity. No CVA tenderness. NEUROLOGICAL: Awake and alert. Motor and sensory grossly within normal limits. Five out of 5 muscle strength in all muscle groups. Normal speech. Data Data Labs Urine dip negative MDM Interpretation(s) Patient is 32-year-old white female at 27 weeks with abdominal pain. No contractions noted urinalysis negative, cervix is closed and high. She also has cellulitis in both lower extremities that she says resulted bug bites bed bugs and where she scratched these areas Plan Plan to place the patient on amoxicillin 500 4 times a day, calamine lotion her legs or Benadryl cream which works best for her, increase her liquid intake Tylenol liberally, heating pad or bedrest hot bath and follow up Dr. Odell Diagnosis Diagnosis: Primary Impression: Abdominal pain during in second trimester Additional Impression: Cellulitis and abscess of leg Disposition: 01 DISCHARGE HOME Condition: Stable Scripts No Active Prescriptions or Reported Meds Jose Thibodeaux II, MD Feb 20, 2017 21:11
[2017-02-21] MEDS ORDERED: AMOXICILLIN (TRIHYDRATE) 500 MG CAP PO SCH (09:00)
== END 2017-02-20 21:39 | disposition home or self-care (01) ==
LOC: HOBED 18:14
DX: O26.899 Other specified pregnancy related conditions, unspecified trimester (principal); R10.9 Unspecified abdominal pain; L03.116 Cellulitis of left lower limb; L03.115 Cellulitis of right lower limb; L02.416 Cutaneous abscess of left lower limb; L02.415 Cutaneous abscess of right lower limb; O99.332 Smoking (tobacco) complicating pregnancy, second trimester; Z3A.27 27 weeks gestation of pregnancy; Z88.6 Allergy status to analgesic agent
CPT/HCPCS: 59025

== ENCOUNTER 2017-03-02 22:45 | Emergency (ER) | payer MEDICAID ==
[~2017-03-02] VITALS: Ht 162.6 cm; Wt 73.0 kg
[2017-03-02] MEDS ORDERED: PREN1TAB63 (23:41)
[2017-03-02] MEDS ORDERED: SUBUTEX (23:41)
[2017-03-02] MEDS ORDERED: AMOX500C PO (23:41)
[2017-03-02] MEDS ORDERED: CLON.5 PO (23:41)
--- NOTE | 2017-03-02 23:50 | PD ---
History of Present Illness Date Seen: Mar 02, 2017 History of Present Illness Patient is 32-year-old white female at [address] Odell 's of due to her long drug history. He presents complaining of increase of pain and swelling in both her legs. I saw her a week ago and didn't noticed swollen legs that the had multiple lesions on them like possibly bug bites what she said it was,. We felt it was a cellulitis gave her amoxicillin 500 4 times a day for 10 days. She was able Dr. Odell after that visit. And she has an appointment with her tomorrow. However she presents tonight with increased pain and swelling. And on exam both legs are very swollen and tender below the knee. She has no other complaint. Baby is active she has no complaint of abdominal pain and vaginal bleeding or leakage of fluid. heart rate tracing is reactive 28 weeks good variability and no contractions seen. Patient's been cleared from obstetric standpoint and she needs to be seen in my emergency room for this problem. She has not seen a nonobstetric physician for this yet and she needs to, plan to send to the main emergency room now for evaluation. Jose Thibodeaux II, MD Mar 02, 2017 23:50
[2017-03-03 01:04] VITALS: BP 118/83; PULSE 96; RESP 16; TEMP 98.8; O2SAT 96
[2017-03-03] MEDS ORDERED: SODIUM CHLORIDE 0.9% FLUSH 10 ML FLUSH IV FLUSH PRN (01:15)
[2017-03-03 01:50] LABS: AUTOMATED NEUTROPHIL # 4.4 TH/MM3 (1.8-7.7); BASOPHIL # 0.1 TH/MM3 (0-0.2); BASOPHIL % 0.9 % (0.0-2.0); EOSINOPHIL # 0.1 TH/MM3 (0-0.4); HEMATOCRIT 29.7 % (35.0-46.0); HEMO FLAGS DIFF FINAL; LYMPH % 30.1 % (9.0-44.0); LYMPHOCYTE # 2.2 TH/MM3 (1.0-4.8); MEAN CELL VOLUME 88.5 FL (80.0-100.0); MEAN CORPUSCULAR HEMOGLOBIN 30.5 PG (27.0-34.0); MEAN CORPUSCULAR HGB CONC 34.5 % (32.0-36.0); MONO % 5.5 % (0.0-8.0); NEUT % 61.5 % (16.0-70.0); PLATELET COUNT 247 TH/MM3 (150-450); RED BLOOD COUNT 3.36 MIL/MM3 (4.00-5.30); RED CELL DISTRIBUTION WIDTH 15.5 % (11.6-17.2); WHITE BLOOD COUNT 7.2 TH/MM3 (4.0-11.0)
[2017-03-03 02:24] LABS: ALKALINE PHOSPHATASE 85 U/L (45-117); TOTAL BILIRUBIN ADULT 0.2 MG/DL (0.2-1.0)
[2017-03-03 02:26] LABS: ALT (GPT) 132 U/L (10-53); ANION GAP 10 MEQ/L (5-15); AST (GOT) 102 U/L (15-37); BICARBONATE 22.6 MEQ/L (21.0-32.0); BLOOD UREA NITROGEN 7 MG/DL (7-18); CHLORIDE 104 MEQ/L (98-107); GLOMERULAR FILTRATION RATE 136 ML/MIN (>89); POTASSIUM 4.5 MEQ/L (3.5-5.1); SODIUM (NA) 137 MEQ/L (136-145)
--- NOTE | 2017-03-03 03:09 | RADRPT ---
EXAM DATE/TIME: 03/03/2017 02:12 [facility] COMPARISON: No previous studies available for comparison. INDICATIONS : Bilateral leg swelling and pain. MEDICAL HISTORY : . Seizures. Endocarditis. Substance use. MRSA. SURGICAL HISTORY : Appendectomy. ENCOUNTER: Initial ACUITY: 1 week PAIN SCORE: 9/10 LOCATION: Bilateral leg. TECHNIQUE: Venous ultrasound of the left and right leg was performed from the inguinal ligament to the proximal calf. Real-time, color Doppler and spectral tracing, compression and augmentation techniques were us ed. FINDINGS: RIGHT LEG: There is normal compressibility of the deep venous system from the inguinal region to the proximal ca lf. No echogenic clot is seen in the lumen of the common femoral, femoral, popliteal, and posterior tibial veins. There is a normal response of the venous system to proximal and distal augmentation an d respiration. LEFT LEG: There is normal compressibility of the deep venous system from the inguinal region to the proximal ca lf. No echogenic clot is seen in the lumen of the common femoral, femoral, popliteal, and posterior tibial veins. There is a normal response of the venous system to proximal and distal augmentation an d respiration. CONCLUSION: 1. No evidence of deep venous thrombosis. 2. Enlarged lymph nodes in the inguinal regions bilaterally the largest measuring 4 cm on the right Osmel Murillo MD on March 03, 2017 at 3:07 Board Certified Radiologist. This report was verified electronically.
[2017-03-03 03:21] LABS: BLOOD, URINE NEG (NEG); COMMENT (UR) CULTURE INDICATED; CULTURE IF INDICATED CULTURE INDICATED; GLUCOSE,URINE NEG (NEG); KETONE, URINE NEG (NEG); MUCUS URINE FEW /lpf (OCC); NITRITE,URINE NEG (NEG); RENAL EPITHELIAL CELLS 2 /hpf; SQUAMOUS EPITHELIAL CELL URINE 3 /hpf (0-5); TRANSITIONAL EPI CELLS, URINE <1 /hpf; URINE COLOR LIGHT-YELLOW (YELLW/STRAW)
--- NOTE | 2017-03-03 03:54 | PD ---
HPI Chief Complaint: Edema Time Seen by Provider: 01:14 Travel History International Travel<30 days: No Contact w/Intl Traveler<30days: No Traveled to known affect area: No History of Present Illness HPI 32-year-old female 2 para 1 known to be 28 weeks was sent to the ER from the obstetrics ED. Dr. Thibodeaux opined an orthopedic surgeon or produce runner might identify the cause of bilateral lower extremity swelling for this patient. Hence, the patient was sent to the ED. Evidently the patient was prescribed amoxicillin one week prior for a presumed diagnosis of lower extremity cellulitis which the patient took as prescribed however experienced no improvement. The patient has been elevating the legs and maintaining bed rest for the past few days as well. 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 judd however the patient states the compression hoses were too painful to wear. The patient has a history of IV drug abuse however is currently in remission. Patient reports with a prior she had minimum swelling which was much less overall than currently. She denies vaginal bleeding and discharge. no fever. no urinary complaint. PFSH Past Medical History Arthritis: No Asthma: No Autoimmune Disease: No Anxiety: Yes Depression: Yes Heart Rhythm Problems: No Cancer: No Cardiovascular Problems: Yes (ENDOCARDITIS ) High Cholesterol: No Chest Pain: Yes Congestive Heart Failure: No COPD: No Cerebrovascular Accident: No Diminished Hearing: No Endocrine: No GERD: No Genitourinary: No Hiatal Hernia: No Immune Disorder: No Musculoskeletal: No Neurologic: Yes Psychiatric: Yes Reproductive: No Respiratory: No Immunizations Current: Yes Migraines: No Seizures: Yes Sleep Apnea: No Ulcer: No ?: : 1 Para: 1 Past Surgical History Abdominal Surgery: Yes (appendix) AICD: No Appendectomy: Yes (2006) Arteriovenous Shunt: No Cardiac Surgery: No Ear Surgery: No Endocrine Surgery: No Eye Surgery: No Genitourinary Surgery: No Gynecologic Surgery: No Insulin Pump: No Joint Replacement: No Oral Surgery: No Pacemaker: No Thoracic Surgery: No Other Surgery: Yes Social History Alcohol Use: Yes (rare) Tobacco Use: Yes (08/01 ppd nrm...5 cig per day since preg) Substance Use: Yes (suboxone, last used illicit drugs on january 17) Allergies-Medications (Allergen,Severity, Reaction): Coded Allergies: Tramadol (Unverified Allergy, Severe, SEIZURE, 03/03/17) Tylenol (Verified Allergy, Severe, Hives, 03/03/17) VOMITING *MDRO Multi-Drug Resistant Organism (Unverified Adverse Reaction, Unknown , 01/19/17) MRSA (wound) 07/2014; MRSA (leg abscess)-09/11/16 Reported Meds & Prescriptions Reported Meds & Active Scripts Active Bactrim DS (Sulfamethoxazole-Trimethoprim) 800-160 Mg Tab 1 Tab PO BID Clindamycin (Clindamycin HCl) 150 Mg Cap 450 Mg PO Q8HR 10 Days Reported Amoxicillin 500 Mg Cap 500 Mg PO TID [Subutex] 8 Mg BID Klonopin (Clonazepam) 0.5 Mg Tab 0.5 Mg PO TID Vitamins 0.8 mg ( Multivit-Min W/Fe-FA) 1 Tab Tab Review of Systems Except as stated in HPI: all other systems reviewed are Neg General / Constitutional: No: Fever Physical Exam Narrative GENERAL: 32 yo F, NAD, WNWD SKIN: Warm and dry. HEAD: Atraumatic. Normocephalic. EYES: Pupils equal and round. No scleral icterus. No injection or drainage. ENT: No nasal bleeding or discharge. Mucous membranes pink and moist. NECK: Trachea midline. No JVD. CARDIOVASCULAR: Regular rate and rhythm. RESPIRATORY: No accessory muscle use. Clear to auscultation. Breath sounds equal bilaterally. GASTROINTESTINAL: Gravid abdomen. No focus of tenderness MUSCULOSKELETAL: 1+ pitting edema to about the knees. The edema is symmetric. There is no focus of induration or tenderness however generally bilateral lower extremities are slightly erythematous. Numerous healed wounds are present throughout the bilateral lower extremities. NEUROLOGICAL: Awake and alert. No obvious cranial nerve deficits. Motor grossly within normal limits. Five out of 5 muscle strength in the arms and legs. Normal speech. PSYCHIATRIC: Appropriate mood and affect; insight and judgment normal. Data Data Last Documented VS Vital Signs Date Time Temp Pulse Resp B/P Pulse Ox O2 Delivery O2 Flow Rate FiO2 03/03/17 01:04 98.8 96 16 118/83 96 Room Air Vital signs reviewed Orders Complete Blood Count With Diff (03/03/17 01:14) Comprehensive Metabolic Panel (03/03/17 01:14) Iv Access Insert/Monitor (03/03/17 01:14) Ecg Monitoring (03/03/17 01:14) Oximetry (03/03/17 01:14) Sodium Chloride 0.9% Flush (Ns Flush) (03/03/17 01:15) B-Type Natriuretic Peptide (03/03/17 01:14) Urinalysis - C+S If Indicated (03/03/17 01:14) Us Leg Venous Doppler Bilat (03/03/17 ) Urine Culture (03/03/17 03:00) Sulfamet-Trimeth Ds 800-160 Mg (Bactrim (03/03/17 05:45) Clindamycin (Cleocin) (03/03/17 05:45) Labs Laboratory Tests Test 03/03/17 03/03/17 01:41 03:00 White Blood Count 7.2 TH/MM3 Red Blood Count 3.36 MIL/MM3 Hemoglobin 10.2 GM/DL Hematocrit 29.7 % Mean Corpuscular Volume 88.5 FL Mean Corpuscular Hemoglobin 30.5 PG Mean Corpuscular Hemoglobin 34.5 % Concent Red Cell Distribution Width 15.5 % Platelet Count 247 TH/MM3 Mean Platelet Volume 7.3 FL Neutrophils (%) (Auto) 61.5 % Lymphocytes (%) (Auto) 30.1 % Monocytes (%) (Auto) 5.5 % Eosinophils (%) (Auto) 2.0 % Basophils (%) (Auto) 0.9 % Neutrophils # (Auto) 4.4 TH/MM3 Lymphocytes # (Auto) 2.2 TH/MM3 Monocytes # (Auto) 0.4 TH/MM3 Eosinophils # (Auto) 0.1 TH/MM3 Basophils # (Auto) 0.1 TH/MM3 CBC Comment DIFF FINAL Differential Comment Sodium Level 137 MEQ/L Potassium Level 4.5 MEQ/L Chloride Level 104 MEQ/L Carbon Dioxide Level 22.6 MEQ/L Anion Gap 10 MEQ/L Blood Urea Nitrogen 7 MG/DL Creatinine 0.52 MG/DL Estimat Glomerular Filtration 136 ML/MIN Rate Random Glucose 85 MG/DL Calcium Level 8.1 MG/DL Total Bilirubin 0.2 MG/DL Aspartate Amino Transf 102 U/L (AST/SGOT) Alanine Aminotransferase 132 U/L (ALT/SGPT) Alkaline Phosphatase 85 U/L B-Type Natriuretic Peptide 12 PG/ML Total Protein 7.0 GM/DL Albumin 2.3 GM/DL Urine Color LIGHT-YELLOW Urine Turbidity CLEAR Urine pH 6.0 Urine Specific [place] 1.002 Urine Protein NEG mg/dL Urine Glucose (UA) NEG mg/dL Urine Ketones NEG mg/dL Urine Occult Blood NEG Urine Nitrite NEG Urine Bilirubin NEG Urine Urobilinogen LESS THAN 2.0 MG/DL Urine Leukocyte Esterase LARGE Urine RBC 4 /hpf Urine WBC 9 /hpf Urine Squamous Epithelial 3 /hpf Cells Urine Transitional Epithelial <1 /hpf Cells Urine Renal Epithelial Cells 2 /hpf Urine Mucus FEW /lpf Microscopic Urinalysis Comment CULTURE INDICATED MDM Medical Decision Making Medical Screen Exam Complete: Yes Emergency Medical Condition: Yes Medical Record Reviewed: Yes Differential Diagnosis Cellulitis, congestive heart failure, hypoalbuminemia, renal failure, DVT, venous insufficiency Narrative Course CBC & BMP Diagram 03/03/17 01:41 AST 102 ALT 132 Albumin 2.3 UA: no UTI Last 24 hours Impressions Lower Extremity Ultrasound 03/03/17 0000 Signed Impressions: Service Date/Time: Friday, March 03, 2017 02:12 - CONCLUSION: 1. No evidence of deep venous thrombosis. 2. Enlarged lymph nodes in the inguinal regions bilaterally the largest measuring 4 cm on the right Osmel Murillo MD The patient has bilateral lower extremity edema which in this scenario is considered to be a combination of factors. First her albumin is 2.3, second she has inguinal adenopathy bilaterally, third she is and forth she has bilateral lower extremity cellulitis. We will prescribe the appropriate antibiotic for cellulitis, clindamycin. Additionally treat the white blood cells and leukocyte esterase in the urine Bactrim will be included as well. I treating the lower extremity cellulitis progressively we anticipate decreased inguinal adenopathy and improved blood flow to the heart and therefore less bilateral lower extremity edema. The case was discussed with Dr orion judd's partner. The patient will follow up with DR judd next week. The patient upon reassessment reveals that she underwent a pelvic exam about one month ago which was normal. Patient agreeable to plan. Diagnosis Primary Impression: Edema Qualified Code: R60.9 - Edema, unspecified type Additional Impressions: Cellulitis Qualified Code: L03.119 - Cellulitis of lower extremity, unspecified laterality Hypoalbuminemia Cystitis Lymphadenopathy Transaminitis Referrals: Marika Odell MD call for appointment Follow up with Dr Rodriguez early next week Patient Instructions: General Instructions, Labor (ED) Departure Forms: Tests/Procedures Additional Instructions: RETURN FOR CONTRACTIONS, LOSS OF FLUID (WATER BREAKING), VAGINAL BLEEDING, OR DECREASED MOVEMENT DRINK 8-10 LARGE GLASSES OF WATER EVERY DAY KEEP SCHEDULED APPOINTMENT WITH YOUR PROVIDER Med/Other Pt SpecificInfo: Prescription(s) given Scripts Sulfamethoxazole-Trimethoprim (Bactrim DS)800-160 Mg Tab1 Tab PO BID #14 TAB Ref 0 Prov:Zaki Cain MD 03/03/17 Clindamycin 150 Mg [id number] Mg PO Q8HR 10 Days Ref 0 Prov:Zaki Cain MD 03/03/17 Zaki Cain MD Mar 03, 2017 03:54
[2017-03-03] MEDS ORDERED: CLIN1CAP5 PO (05:39)
[2017-03-03] MEDS ORDERED: BACT800T5 PO (05:39)
[2017-03-03] MEDS ORDERED: CLINDAMYCIN 150 MG CAP PO ONE (05:45)
[2017-03-03] MEDS ORDERED: SULFAMETHOXAZOLE-TRIMETHOPRIM DS 800-160 MG TAB PO ONE (05:45)
== END 2017-03-03 06:26 | disposition home or self-care (01) ==
LOC: HOBED 22:45 → NEPC 03-03 06:26
DX: O12.03 Gestational edema, third trimester (principal); L03.116 Cellulitis of left lower limb; L03.115 Cellulitis of right lower limb; E88.09 Other disorders of plasma-protein metabolism, not elsewhere classified; O23.13 Infections of bladder in pregnancy, third trimester; B96.20 Unspecified Escherichia coli [E. coli] as the cause of diseases classified elsewhere; R59.1 Generalized enlarged lymph nodes; R74.0 Nonspecific elevation of levels of transaminase and lactic acid dehydrogenase [LDH]; Z3A.28 28 weeks gestation of pregnancy
CPT/HCPCS: 80053; 81001; 83880; 85025; 87077; 87086; 87186; 93970; 99284

== ENCOUNTER 2017-03-03 15:41 | Observation (INO) | payer MEDICAID ==
[2017-03-03] VITALS (9 sets, daily range): BP systolic 107–111; BP diastolic 68–74; PULSE 80–87; RESP 14–18; TEMP 97.6
[~2017-03-03 15:41] MED LIST changes: +AMOX500C PO; +BACT800T5 PO; +CLIN1CAP5 PO; +CLON.5 PO; -DEPA250T2 PO; -LEVE500 PO; +PREN1TAB63; +SUBUTEX; -XANA2TAB2 PO
[2017-03-03] MEDS ORDERED: ZOLPIDEM TARTRATE 10 MG TAB PO PRN (17:15)
[2017-03-03 18:09] LABS: BLOOD, URINE NEG (NEG); COMMENT (UR) CULTURE INDICATED; CULTURE IF INDICATED CULTURE INDICATED; GLUCOSE,URINE NEG (NEG); KETONE, URINE NEG (NEG); MUCUS URINE FEW /lpf (OCC); NITRITE,URINE NEG (NEG); SQUAMOUS EPITHELIAL CELL URINE 26 /hpf (0-5); URINE COLOR YELLOW (YELLW/STRAW)
[2017-03-03] MEDS: AMPICILLIN-SULBACTAM INJ 1,500 MG in SODIUM CHLORIDE 0.9% INJ 100 ML IV SCH (18:42)
[2017-03-03] MEDS: LACTATED RINGER'S 1000 ML INJ 1,000 ML IV SCH (18:42)
--- NOTE | 2017-03-03 18:43 | HHI.HP ---
HPI Chief Complaint ~28 week IUP with substance use disorder, no care, severe lower extremity edema/lymphedema and history of bacterial endocarditis Date Seen: Mar 03, 2017 Travel History International Travel<30 Days: No Contact w/Intl Traveler<30Days: No Known Affected Area: No History of Present Illness HPI 32 yo swf referred to my practice by [facility]. She is planning to give her child up for adoption. She was seen on February 17 and February 23 in my office and is noted to have increasing lower leg swelling and pain. She missed her appointment this week as she could not walk. She presented to OB ED last night with severe LE pain despite keeping legs elevated. Dopplers were negative and she was sent home to follow up in the office. She called hysterical with increasing pain and fear that she was developing bacterial endocarditis as she was not adequately treated 2 years ago. She has increasing SOB. No leaking, bleeding, contractions. Notes movement. She was told to come to [facility] for evaluation by me. Para: 1 : 2 History Past Medical History Narrative Medical History of severe childhood anxiety-- she has not yet been interviewed about history of childhood trauma and ACES started on xanax at 9 years of age. She has been dependent on benzodiazepines since. She states she has tried everything for anxiety and nothing has worked. 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 She was diagnosed with FLAKITA two years ago but states she was suboptimally treated due to lack of funds. She has had no follow up since. Past Surgical History Surgical History: No Previous Surgery Family History Narrative Family History family history needs to be explored. Social History Alcohol Use: No Tobacco Use: Yes Substance Abuse: Yes Allergies-Medications (Allergen,Severity, Reaction): Coded Allergies: Tramadol (Unverified Allergy, Severe, SEIZURE, 03/03/17) Tylenol (Verified Allergy, Severe, Hives, 03/03/17) VOMITING *MDRO Multi-Drug Resistant Organism (Unverified Adverse Reaction, Unknown , 01/19/17) MRSA (wound) 07/2014; MRSA (leg abscess)-09/11/16 Home Meds Active Scripts Sulfamethoxazole-Trimethoprim (Bactrim DS)800-160 Mg Tab1 Tab PO BID #14 TAB Ref 0 Prov:Zaki Cain MD 03/03/17 Clindamycin 150 Mg Anx607 Mg PO Q8HR 10 Days Ref 0 Prov:Zaki Cain MD 03/03/17 Reported Medications Amoxicillin 500 Mg Usa587 Mg PO TID Ref 0 03/02/17 [Subutex] No Conflict Check8 Mg BID 03/02/17 Clonazepam (Klonopin)0.5 Mg Tab0.5 Mg PO TID #90 TAB Ref 0 03/02/17 Multivit-Min W/Fe-FA ( Vitamins 0.8 mg)1 Tab Tab 03/02/17 Review of Systems HENT: Headaches, Lightheadedness Cardiovascular: Tachycardia Respiratory: Short of Breath Gastrointestinal: Diarrhea Skin: Other (picking with severe scarrring) Neurologic: Seizures Psychiatric: Anxiety, Depression, Mood Disorder, Substance Abuse Physical Exam Vital Signs Date Time Temp Pulse Resp B/P Pulse Ox O2 Delivery O2 Flow Rate FiO2 03/03/17 18:09 97.6 14 03/03/17 18:08 80 111/74 Narrative GENERAL: Well-nourished, well-developed patient. SKIN: scarred and pitted with tracks but no obvious phleblitis. Legs painful to touch with 4+edema HEAD: Normocephalic and atraumatic. EYES: No scleral icterus. No injection or drainage. ENT: No nasal drainage noted. Mucous membranes pink. Airway patent. NECK: Supple, trachea midline. No JVD. CARDIOVASCULAR: Regular rate and rhythm without murmurs, gallops, or rubs. Listened carefully front and back. RESPIRATORY: Breath sounds equal bilaterally. No accessory muscle use. BREASTS: Bilateral exam showed no masses , no retractions, no nipple discharge. ABDOMEN/GI: Abdomen soft, non-tender, bowel sounds present, no rebound, no guarding Gravid to [-] weeks size Fundal Height: [-] GENITOURINARY: FH 26 FHT's: Category: [-] strip not worrisome EXTREMITIES: Severe edema lymphedema BACK: Nontender without obvious deformity. No CVA tenderness. NEUROLOGICAL: Awake and alert. Motor and sensory grossly within normal limits. Five out of 5 muscle strength in all muscle groups. Normal speech. Data Data Orders Ob (2e) Additional Admit Info (03/03/17 16:52) Vital Signs (Adult) .ON ADMISSION (03/03/17 17:08) ^ Labor Status (03/03/17 17:08) Urinalysis - C+S If Indicated (03/03/17 17:08) ^ Non Stress Test (03/03/17 17:08) ^ Hydration (03/03/17 17:08) Diet Regular Basic (03/03/17 Dinner) Comprehensive Metabolic Panel (03/03/17 17:08) Lactated Ringer's 1000 Ml Inj (Lr 1000 M (03/03/17 17:08) Ob/Psych Drug Screen, Urine (03/03/17 17:08) Drug Screen, Random Urine (03/03/17 17:08) Hepatitis Profile (03/03/17 17:08) Rapid Plasma Regin (Rpr) W Ttr (03/03/17 17:08) Complete Blood Count With Diff (03/03/17 17:08) Special Serology (03/03/17 17:08) Specimen To Be Collected PRN (03/03/17 17:08) Specimen To Be Collected PRN (03/03/17 17:08) Hemoglobin (Hgb) A1c (03/03/17 17:08) Hepatitis C Rna Quantitative (03/03/17 17:08) Buprenorphine (Buprenorphine) (03/03/17 21:00) Clonazepam (Klonopin) (03/03/17 21:00) Lamotrigine (Lamictal) (03/04/17 09:00) Hydroxyzine Pamoate (Vistaril) (03/03/17 17:15) Zolpidem (Ambien) (03/03/17 17:15) Consult Cardiology (03/03/17 ) Ampicillin-Sulbactam Inj (Unasyn Inj) (03/03/17 18:00) Us Ob Limited (03/03/17 ) (Hub Use Only)Inp Phy Cons/Ref (03/03/17 ) Sleeve, Knee Sequential Rodolfo Pr (03/03/17 17:47) Urine Culture (03/03/17 17:30) Vascular Access Team Consult/P PRN (03/03/17 18:22) Vascular Poc Ultrasound (03/03/17 ) Buprenorphine (Buprenorphine) (03/03/17 21:00) Labs Laboratory Tests Test 03/03/17 17:30 Urine Color YELLOW Urine Turbidity HAZY Urine pH 6.0 Urine Specific [place] 1.016 Urine Protein TRACE Urine Glucose (UA) NEG Urine Ketones NEG Urine Occult Blood NEG Urine Nitrite NEG Urine Bilirubin NEG Urine Urobilinogen LESS THAN 2.0 Urine Leukocyte Esterase LARGE Urine WBC 15 Urine Squamous Epithelial 26 Cells Urine Mucus FEW Microscopic Urinalysis Comment CULTURE INDICATED Date/Time Procedure Status Source Growth 03/03/17 17:30 Urine Culture Received Urine Clean Catch Pending Assessment/Plan Problem List: (1) Endocarditis (2) Anxiety disorder (3) DVT prophylaxis (4) IV drug user (5) Positive urine drug screen (6) Substance induced mood disorder (7) Seizure disorder (8) (9) Edema Assessment and Plan renew her subutex emperic antibiotics and lovenox to address swelling sequentials cardiology consult notify healthy [facility] and Bree Duran with adoption agency. Marika Odell MD Mar 03, 2017 18:43
[2017-03-03 19:10] LABS: AUTOMATED NEUTROPHIL # 4.4 TH/MM3 (1.8-7.7); BASOPHIL % 0.4 % (0.0-2.0); EOSINOPHIL # 0.1 TH/MM3 (0-0.4); EOSINOPHIL % 2.1 % (0.0-4.0); HEMATOCRIT 32.1 % (35.0-46.0); HEMO FLAGS DIFF FINAL; LYMPH % 30.4 % (9.0-44.0); LYMPHOCYTE # 2.1 TH/MM3 (1.0-4.8); MEAN CELL VOLUME 88.8 FL (80.0-100.0); MEAN CORPUSCULAR HEMOGLOBIN 29.8 PG (27.0-34.0); MEAN CORPUSCULAR HGB CONC 33.6 % (32.0-36.0); MONO % 5.2 % (0.0-8.0); NEUT % 61.9 % (16.0-70.0); PLATELET COUNT 249 TH/MM3 (150-450); RED BLOOD COUNT 3.61 MIL/MM3 (4.00-5.30); RED CELL DISTRIBUTION WIDTH 16.1 % (11.6-17.2); WHITE BLOOD COUNT 7.1 TH/MM3 (4.0-11.0)
[2017-03-03 19:39] LABS: ALT (GPT) 123 U/L (10-53)
[2017-03-03 19:42] LABS: ALKALINE PHOSPHATASE 81 U/L (45-117); TOTAL BILIRUBIN ADULT 0.2 MG/DL (0.2-1.0)
[2017-03-03 19:47] LABS: ANION GAP 8 MEQ/L (5-15); AST (GOT) 114 U/L (15-37); BICARBONATE 20.7 MEQ/L (21.0-32.0); BLOOD UREA NITROGEN 5 MG/DL (7-18); CHLORIDE 106 MEQ/L (98-107); GLOMERULAR FILTRATION RATE 145 ML/MIN (>89); POTASSIUM 5.1 MEQ/L (3.5-5.1); SODIUM (NA) 135 MEQ/L (136-145)
[2017-03-03] MEDS: clonazePAM 1 MG TAB PO SCH (20:40)
[2017-03-03] MEDS: BUPRENORPHINE HCL 8 MG SUBLINGUAL TAB SL SCH (20:40)
[2017-03-03] MEDS: ENOXAPARIN SODIUM 40 MG/0.4 ML SYRINGE SQ SCH (20:40)
[2017-03-03] MEDS ORDERED: BUPRENORPHINE HCL 8 MG SUBLINGUAL TAB SL SCH (21:00)
[2017-03-03 22:29] LABS: HEMOGLOBIN A1a 0.9 %; HEMOGLOBIN A1b 0.7 %; HEMOGLOBIN Ao 87.1 %; HEMOGLOBIN F 0.8 %; HEMOGLOBIN LA1C 1.8 %; HEMOGLOBIN P3 3.2 %
[2017-03-04] VITALS (18 sets, daily range): BP systolic 94–133; BP diastolic 55–71; PULSE 73–99; RESP 16–18; TEMP 97.5–98.2
[2017-03-04] MEDS: AMPICILLIN-SULBACTAM INJ 1,500 MG in SODIUM CHLORIDE 0.9% INJ 100 ML IV SCH ×2 (00:47→05:57)
[2017-03-04] MEDS: LACTATED RINGER'S 1000 ML INJ 1,000 ML IV SCH ×3 (00:48→17:08)
[2017-03-04] MEDS: BUPRENORPHINE HCL 8 MG SUBLINGUAL TAB SL SCH ×2 (08:48→21:32)
[2017-03-04] MEDS: lamoTRIgine 25 MG TAB PO SCH (08:48)
[2017-03-04] MEDS: clonazePAM 1 MG TAB PO SCH ×2 (08:48→21:32)
--- NOTE | 2017-03-04 08:59 | PD.OB.ANTE ---
Subjective Diagnosis: (1) Endocarditis (2) Anxiety disorder (3) DVT prophylaxis (4) IV drug user (5) Positive urine drug screen (6) Substance induced mood disorder (7) Seizure disorder (8) (9) Edema Interval History Quiet morning subutex is working likes sequentials legs still very painful feels meals are inadequate and very very hungry Objective Vital Signs Vital Signs Date Time Temp Pulse Resp B/P Pulse Ox O2 Delivery O2 Flow Rate FiO2 03/04/17 08:53 97.5 03/04/17 07:35 16 03/04/17 07:35 73 98/55 03/04/17 04:52 88 16 94/61 03/04/17 04:52 98.1 03/04/17 00:19 16 03/04/17 00:17 83 96/61 03/03/17 20:55 81 03/03/17 19:35 97.6 81 18 107/68 03/03/17 18:30 86 03/03/17 18:25 83 03/03/17 18:20 87 03/03/17 18:15 84 03/03/17 18:10 83 03/03/17 18:09 97.6 14 03/03/17 18:08 80 111/74 Lab & Micro Results Test 03/03/17 03/03/17 17:30 18:50 Urine Color YELLOW Urine Turbidity HAZY Urine pH 6.0 Urine Specific [place] 1.016 Urine Protein TRACE mg/dL Urine Glucose (UA) NEG mg/dL Urine Ketones NEG mg/dL Urine Occult Blood NEG Urine Nitrite NEG Urine Bilirubin NEG Urine Urobilinogen LESS THAN 2.0 MG/DL Urine Leukocyte Esterase LARGE Urine WBC 15 /hpf Urine Squamous Epithelial 26 /hpf Cells Urine Mucus FEW /lpf Microscopic Urinalysis Comment CULTURE INDICATED Urine Opiates Screen NEG Urine Barbiturates Screen NEG Urine Amphetamines Screen POS Urine Benzodiazepines Screen NEG Urine Cocaine Screen POS Urine Cannabinoids Screen NEG White Blood Count 7.1 TH/MM3 Red Blood Count 3.61 MIL/MM3 Hemoglobin 10.8 GM/DL Hematocrit 32.1 % Mean Corpuscular Volume 88.8 FL Mean Corpuscular Hemoglobin 29.8 PG Mean Corpuscular Hemoglobin 33.6 % Concent Red Cell Distribution Width 16.1 % Platelet Count 249 TH/MM3 Mean Platelet Volume 7.5 FL Neutrophils (%) (Auto) 61.9 % Lymphocytes (%) (Auto) 30.4 % Monocytes (%) (Auto) 5.2 % Eosinophils (%) (Auto) 2.1 % Basophils (%) (Auto) 0.4 % Neutrophils # (Auto) 4.4 TH/MM3 Lymphocytes # (Auto) 2.1 TH/MM3 Monocytes # (Auto) 0.4 TH/MM3 Eosinophils # (Auto) 0.1 TH/MM3 Basophils # (Auto) 0.0 TH/MM3 CBC Comment DIFF FINAL Differential Comment Sodium Level 135 MEQ/L Potassium Level 5.1 MEQ/L Chloride Level 106 MEQ/L Carbon Dioxide Level 20.7 MEQ/L Anion Gap 8 MEQ/L Blood Urea Nitrogen 5 MG/DL Creatinine 0.49 MG/DL Estimat Glomerular Filtration 145 ML/MIN Rate Random Glucose 66 MG/DL Hemoglobin A1c 4.7 % Calcium Level 8.1 MG/DL Total Bilirubin 0.2 MG/DL Aspartate Amino Transf 114 U/L (AST/SGOT) Alanine Aminotransferase 123 U/L (ALT/SGPT) Alkaline Phosphatase 81 U/L Total Protein 6.7 GM/DL Albumin 2.2 GM/DL Date/Time Procedure Status Source Growth 03/03/17 17:30 Urine Culture Received Urine Clean Catch Pending Physical Exam GENERAL: appears more comfortable in less emotional distress No obvious withdrawal CARDIOVASCULAR: Regular rate and rhythm without murmurs, gallops, or rubs. RESPIRATORY: Breath sounds equal bilaterally. No accessory muscle use. ABDOMEN/GI: Abdomen soft, non-tender. 27 cm fundus and soft strip not concerning No signiifcant change in edema/lymphedma at this time Assessment and Plan Problem List: (1) Endocarditis Status: Acute (2) Anxiety disorder Status: Acute (3) DVT prophylaxis Status: Acute (4) IV drug user Status: Chronic (5) Positive urine drug screen Status: Acute (6) Substance induced mood disorder Status: Acute (7) Seizure disorder Status: Acute (8) Status: Acute (9) Edema Status: Acute Assessment and Plan maintain current meds and support increase diet encourage ambulation and wear sequentials when in be. await cardiology Marika Odell MD Mar 04, 2017 08:59
[2017-03-04 11:42] LABS: MRSA PCR NEGATIVE (NEGATIVE); STAPH AUREUS PCR NEGATIVE (NEGATIVE)
--- NOTE | 2017-03-04 12:49 | MB ---
cc: VENANCIO ASKEW MD DATE OF CONSULTATION: 03/04/2017. REASON FOR CONSULTATION: History of endocarditis / . HISTORY OF PRESENT ILLNESS: The patient is a pleasant 32-year-old female who is 20 weeks and who apparently has a history of endocarditis, although this was incompletely evaluated for unclear reasons. In the 2012, she had positive blood cultures and an echo suggestive but not definitive for endocarditis and I do not see that a transesophageal echocardiogram was ever done. The patient has been using multiple drugs but apparently has not used any IV drugs for the past six weeks. Her cocaine tox screen is positive currently though. She presented to the hospital with worsening lower extremity edema and again she is 20 weeks . She admits to very heavy anxiety and chronic chest pain / tightness, which she does feel has been worse lately but also worse with her anxiety. She has chronic shortness of breath but again is , which may be contributing PAST MEDICAL HISTORY: 1. Polysubstance drug abuse. 2. Lower extremity edema. CURRENT MEDICATIONS: 1. Lamictal. 2. Klonopin. 3. Buprenorphine. ALLERGIES: 1. TYLENOL. 2. TRAMADOL. PHYSICAL EXAMINATION: VITAL SIGNS: Afebrile, pulse 73, respiratory rate 16, blood pressure 98/55. GENERAL: A pleasant woman in no distress. NECK: No jugular venous distention. LUNGS: Clear to auscultation bilaterally. CARDIOVASCULAR: Regular rate and rhythm. No murmurs appreciated. ABDOMEN: Benign (). EXTREMITIES: 1+ edema bilaterally. LABORATORY DATA: Sodium 135, potassium 5.1, chloride 106, bicarbonate 20.7, BUN 5, creatinine 0.49, glucose 66. Liver function tests are mildly elevated. Toxicology positive for cocaine and amphetamines. Urine was positive for urinary tract infection. Hematocrit was 32.1. EKGS: EKG is pending. IMPRESSION: 1. History of endocarditis. The patient certainly has risk factors for endocarditis. I will have her undergo an echocardiogram and blood cultures. 2. Chest pain. The patient's chest pain is very likely due to her anxiety as it is present essentially all the time according to her. I will have her undergo three sets of cardiac enzymes and an EKG. Given her active and relatively low risk for coronary disease, I would likely pursue any imaging studies given the radiation required and her status. Further recommendations based on her clinical course and the study above. Thank you again for the opportunity to participate in this patient's care. MD MANUEL Guzman/ANKUR /9:37 AM /12:31 PM
[2017-03-04 14:54] LABS: CREATINE KINASE 21 U/L (26-192)
[2017-03-04] MEDS: ENOXAPARIN SODIUM 40 MG/0.4 ML SYRINGE SQ SCH (20:20)
[2017-03-04 22:26] LABS: CREATINE KINASE 21 U/L (26-192)
[2017-03-05] VITALS (10 sets, daily range): BP systolic 99–101; BP diastolic 57–66; PULSE 88–104; RESP 16–18; TEMP 98
[2017-03-05 05:50] LABS: CREATINE KINASE 22 U/L (26-192)
[2017-03-05] MEDS: lamoTRIgine 25 MG TAB PO SCH (09:05)
[2017-03-05] MEDS: clonazePAM 1 MG TAB PO SCH ×2 (09:05→20:43)
[2017-03-05] MEDS: BUPRENORPHINE HCL 8 MG SUBLINGUAL TAB SL SCH ×2 (09:05→20:43)
[2017-03-05] MEDS: LACTATED RINGER'S 1000 ML INJ 1,000 ML IV SCH (09:06)
--- NOTE | 2017-03-05 10:05 | PD.OB.ANTE ---
Subjective Diagnosis: (1) Endocarditis Diagnosis: Principal (2) Edema Diagnosis: Principal (3) Anxiety disorder Diagnosis: Principal (4) Diagnosis: Principal (5) IV drug user Diagnosis: Secondary (6) DVT prophylaxis Diagnosis: Secondary (7) Positive urine drug screen Diagnosis: Secondary (8) Substance induced mood disorder Diagnosis: Secondary (9) Seizure disorder Diagnosis: Secondary Interval History Resting in bed. No new complaints. Denies VB, LOF, ctx. Good FM. Denies shortness of breath, chest pain. Tolerating diet. Echo in process. Antepartum ROS: Reports: movement normal, Denies: New complaints, Loss of fluid, Vaginal bleeding, Contractions, Other Objective Vital Signs Vital Signs Date Time Temp Pulse Resp B/P Pulse Ox O2 Delivery O2 Flow Rate FiO2 03/05/17 09:20 91 03/05/17 09:15 88 03/05/17 09:10 91 03/05/17 09:09 18 03/05/17 09:08 89 99/64 03/04/17 19:14 98.2 92 18 133/71 03/04/17 15:53 97.8 18 03/04/17 15:52 80 95/56 03/04/17 11:48 99 108/68 03/04/17 11:48 97.8 18 03/04/17 10:10 80 03/04/17 10:05 78 Lab & Micro Results Test 03/04/17 03/04/17 03/05/17 14:05 21:45 03:57 Total Creatine Kinase 21 U/L 21 U/L 22 U/L Troponin I LESS THAN 0.02 LESS THAN 0.02 LESS THAN 0.02 NG/ML NG/ML NG/ML Date/Time Procedure Status Source Growth 03/04/17 21:45 Aerobic Blood Culture Received Blood Arterial Line Pending 03/04/17 21:45 Anaerobic Blood Culture Received Blood Arterial Line Pending 03/03/17 17:30 Urine Culture - Final Complete Urine Clean Catch 10-50,000 CFU/ML MIXED WENDY... Physical Exam GENERAL: Laying in bed, well developed pt, gravid. CARDIOVASCULAR: deferred due to ECHO in process. RESPIRATORY: deferred due to ECHO in process. ABDOMEN/GI: Abdomen soft, non-tender. Fundus: [c/w dates] GENITOURINARY: deferred +FCA per shift EXTREMITIES: No cyanosis, non-tender, without signs of DVT. SCDs in place. Pitting edema b/l to upper thighs; multiple scabs/picked skin Assessment and Plan Problem List: (1) Endocarditis Status: Acute (2) Anxiety disorder Status: Acute (3) DVT prophylaxis Status: Acute (4) IV drug user Status: Chronic (5) Positive urine drug screen Status: Acute (6) Substance induced mood disorder Status: Acute (7) Seizure disorder Status: Acute (8) Status: Acute (9) Edema Status: Acute Assessment and Plan maintain current meds and support add Unasyn for possible UTI/skin infxn per Dr. Odell's request encourage ambulation and wear sequentials when in bed. await cardiology recs & ECHO results not meeting d/c criteria Eugenia Cali MD Mar 05, 2017 10:05
[2017-03-05] MEDS: AMPICILLIN-SULBACTAM INJ 3 GM in SODIUM CHLORIDE 0.9% INJ 100 ML IV SCH ×2 (10:31→11:01)
--- NOTE | 2017-03-05 11:50 | PD.CARD.PN ---
Subjective Subjective Remarks Pt feels well, no complaints (but itching/picking) Objective Medications Administered Medications Medications (Trade) Dose Ordered Sig/Chrissy Route PRN Reason Start Time Stop Time Status Last Admin Dose Admin Clonazepam (KlonoPIN) 1 mg Q12HR PO 03/03/17 21:00 03/05/17 09:05 Lamotrigine (LaMICtal) 25 mg DAILY PO 03/04/17 09:00 03/05/17 09:05 Hydroxyzine Pamoate (Vistaril) 50 mg Q6H PRN PO anxiety 03/03/17 17:15 03/04/17 14:52 Buprenorphine HCl (Buprenorphine) 8 mg BID SL 03/03/17 21:00 03/05/17 09:05 Enoxaparin Sodium 40 mg 40 mg Q24H SQ 03/03/17 20:00 03/04/17 20:20 Ampicillin Sodium/ Sulbactam Sodium/ Sodium Chloride (Unasyn Inj/NS Inj) 100 ml @ 200 mls/hr Q6H IV 03/05/17 10:00 03/06/17 04:29 03/05/17 10:31 Vital Signs / I&O Vital Signs Date Time Temp Pulse Resp B/P Pulse Ox O2 Delivery O2 Flow Rate FiO2 03/05/17 09:20 91 03/05/17 09:15 88 03/05/17 09:10 91 03/05/17 09:09 18 03/05/17 09:08 89 99/64 03/04/17 19:14 98.2 92 18 133/71 03/04/17 15:53 97.8 18 03/04/17 15:52 80 95/56 Physical Exam GENERAL: This is a well-nourished, well-developed patient, in no apparent distress. CARDIOVASCULAR: Regular rate and rhythm without murmurs, gallops, or rubs. RESPIRATORY: Clear to auscultation. Breath sounds equal bilaterally. No wheezes , rales, or rhonchi. GASTROINTESTINAL: Abdomen soft, non-tender, nondistended. Normal active bowel sounds MUSCULOSKELETAL: Extremities without clubbing, cyanosis, or edema. NEURO: Alert & Oriented x4 to person, place, time, situation. Moves all ext x4 Laboratory Laboratory Tests Test 03/04/17 03/04/17 03/05/17 14:05 21:45 03:57 Total Creatine Kinase 21 U/L 21 U/L 22 U/L Troponin I LESS THAN 0.02 LESS THAN 0.02 LESS THAN 0.02 NG/ML NG/ML NG/ML Assessment and Plan Problem List: (1) Positive urine drug screen Assessment and Plan: positive for meth and cocaine; pt admits to meth but claims she doesn't know why she is positive for cocaine. (2) Endocarditis Assessment and Plan: so far blood cx negative, if echo looks good will be ok to d/c from my standpoint. Alfie Silver MD Mar 05, 2017 11:50
--- NOTE | 2017-03-05 14:23 | ECHRPT ---
Indication: HX OF ENDOCARDITIS CONCLUSIONS Normal left ventricular size. Wall thickness is normal. The left ventricular systolic function is hyperdynamic with an estimated ejection fraction in the ra nge of 65- 70%. No regional wall motion abnormalities are present. No evidence of endocarditis. BP: 137 / 72 HR: 81 Rhythm: Sinus MEASUREMENTS (Male / Female) Normal Values Technical Quality:Fair 2D ECHO LV Diastolic Diameter PLAX 4.4 cm 4.2 - 5.9 / 3.9 - 5.3 cm LV Systolic Diameter PLAX 3.0 cm IVS Diastolic Thickness 0.8 cm 0.6 - 1.0 / 0.6 - 0.9 cm LVPW Diastolic Thickness 0.8 cm 0.6 - 1.0 / 0.6 - 0.9 cm LV Relative Wall Thickness 0.4 LVOT Diameter 1.9 cm Aortic Root Diameter 2.6 cm LA Systolic Diameter LX 3.3 cm 3.0 - 4.0 / 2.7 - 3.8 cm M-MODE AV Cusp Separation MM 2.1 cm DOPPLER AV Peak Velocity 134.0 cm/s AV Peak Gradient 7.2 mmHg AV Mean Gradient 4.0 mmHg AV Velocity Time Integral 22.6 cm LVOT Peak Velocity 120.0 cm/s LVOT Peak Gradient 5.8 mmHg LVOT Velocity Time Integral 21.4 cm LVOT Cardiac Index 2687.5 cm/minm AV Area Cont Eq vti 2.7 cm AV Area Cont Eq pk 2.5 cm Mitral E Point Velocity 80.5 cm/s Mitral A Point Velocity 59.7 cm/s Mitral E to A Ratio 1.3 LV E' Lateral Velocity 13.0 cm/s Mitral E to LV E' Lateral Ratio 6.2 LV E' Septal Velocity 12.6 cm/s Mitral E to LV E' Septal Ratio 6.4 TR Peak Velocity 186.0 cm/s TR Peak Gradient 13.8 mmHg PV Peak Velocity 70.7 cm/s PV Peak Gradient 2.0 mmHg FINDINGS LEFT VENTRICLE Normal left ventricular size. Wall thickness is normal. The left ventricular systolic function is hyperdynamic with an estimated ejection fraction in the ra nge of 65- 70%. No regional wall motion abnormalities are present. Left ventricular diastolic function parameters are normal. RIGHT VENTRICLE Normal right ventricular size and systolic function. LEFT ATRIUM The left atrial size is normal. RIGHT ATRIUM The right atrial size is normal. ATRIAL SEPTUM Normal atrial septal thickness without atrial level shunting by limited color doppler interrogation. AORTA The aortic root and proximal ascending aorta are normal in size on limited imaging. MITRAL VALVE Structurally normal mitral valve. Trace mitral valve regurgitation. AORTIC VALVE Trileaflet aortic valve. No aortic valve stenosis or regurgitation. TRICUSPID VALVE Structurally normal tricuspid valve. There is trace tricuspid valve regurgitation. Normal estimated pulmonary pressures. PULMONARY VALVE Normal appearing pulmonary valve. No pulmonary valve regurgitation or stenosis. VESSELS The inferior vena cava is normal in size. PERICARDIUM No pericardial effusion. Alfie Silver MD (Electronically Signed) Final Date:05 March 2017 14:22
--- NOTE | 2017-03-05 17:14 | EKG ---
Date Performed: 03/04/2017 Time Performed: 12:53:15 PTAGE: 32 years EKG: Sinus rhythm NORMAL ECG Since PREVIOUS TRACING , no significant change noted PREVIOUS TRACIN08/23/2015 20.24 DOCTOR: Brooklyn Alberto Interpretating Date/Time 03/05/2017 17:13:31
[2017-03-05] MEDS ORDERED: DOCUSATE SODIUM 100 MG CAP PO PRN (19:30)
[2017-03-05] MEDS ORDERED: BISACODYL 10 MG SUPP RECTAL PRN (19:30)
[2017-03-05] MEDS ORDERED: POLYETHYLENE GLYCOL 17 GM PKG PO PRN (19:45)
[2017-03-05] MEDS: ENOXAPARIN SODIUM 40 MG/0.4 ML SYRINGE SQ SCH (20:19)
[2017-03-06] VITALS (18 sets, daily range): BP systolic 104–111; BP diastolic 55–81; PULSE 86–109; RESP 18; TEMP 98.1–98.3
[2017-03-06] MEDS: clonazePAM 1 MG TAB PO SCH ×3 (08:36→17:53)
[2017-03-06] MEDS: BUPRENORPHINE HCL 8 MG SUBLINGUAL TAB SL SCH (08:36)
[2017-03-06] MEDS: lamoTRIgine 25 MG TAB PO SCH (08:36)
--- NOTE | 2017-03-06 09:20 | PD.OB.ANTE ---
Subjective Diagnosis: (1) Endocarditis Diagnosis: Principal (2) Edema Diagnosis: Principal (3) Anxiety disorder Diagnosis: Principal (4) Diagnosis: Principal (5) IV drug user Diagnosis: Secondary (6) DVT prophylaxis Diagnosis: Secondary (7) Positive urine drug screen Diagnosis: Secondary (8) Substance induced mood disorder Diagnosis: Secondary (9) Seizure disorder Diagnosis: Secondary Interval History Legs feel 100% better still edematous but much improved cardiac workup negative reassured that she can be discharged wrt to these aspects but worried her excessive anxiety disorder will cause craving and relapse unless better addressed. Objective Vital Signs Vital Signs Date Time Temp Pulse Resp B/P Pulse Ox O2 Delivery O2 Flow Rate FiO2 03/06/17 07:57 98.1 18 03/06/17 07:57 86 104/55 03/05/17 19:20 97 101/57 03/05/17 19:19 98.0 16 03/05/17 17:10 104 101/66 03/05/17 12:00 17 03/05/17 09:20 91 Lab & Micro Results Date/Time Procedure Status Source Growth 03/04/17 21:45 Aerobic Blood Culture - Preliminary Resulted Blood Arterial Line NO GROWTH IN 1 DAY 03/04/17 21:45 Anaerobic Blood Culture - Preliminary Resulted Blood Arterial Line NO GROWTH IN 1 DAY 03/03/17 17:30 Urine Culture - Final Complete Urine Clean Catch 10-50,000 CFU/ML MIXED WENDY... Physical Exam GENERAL: Well-nourished, well-developed patient. CARDIOVASCULAR: Regular rate and rhythm without murmurs, gallops, or rubs. RESPIRATORY: Breath sounds equal bilaterally. No accessory muscle use. ABDOMEN/GI: Abdomen soft, non-tender. Fundus 28 strip reassuring edema improved.. No sign infection\ Assessment and Plan Problem List: (1) Endocarditis Status: Acute (2) Edema Status: Acute (3) Anxiety disorder Status: Acute (4) Status: Acute (5) IV drug user Status: Chronic (6) DVT prophylaxis Status: Acute (7) Positive urine drug screen Status: Acute (8) Substance induced mood disorder Status: Acute (9) Seizure disorder Status: Acute Assessment and Plan stop antibiotics and IV meds stop lovenox begin aspirin need to address anxiety before discharge Marika Odell MD Mar 06, 2017 09:20
[2017-03-06] MEDS ORDERED: BUPR8SUB SL (18:06)
[2017-03-06] MEDS ORDERED: HYDR50CA PO (18:06)
[2017-03-06] MEDS ORDERED: CLON1 PO (18:06)
[2017-03-06] MEDS ORDERED: LAMO25 PO (18:06)
--- NOTE | 2017-03-06 18:07 | HHI.DCPOC ---
Discharge Care Plan Additional Problems watch for increased swelling, severe leg or chest pain if signs of cravings or risk of illicit use call Constanza Malik to make lesa appointment Report Symptoms to Your Doctor -Temperature above 100.5 degrees -Redness, of incision or excessive or foul smelling drainage -Unusual pain or calf pain -Increased vaginal bleeding -Painful or difficulty urinating -Feelings of extreme sadness or anxiety after 2 weeks Goals to Promote Your Health * To prevent worsening of your condition and complications * To maintain your health at the optimal level Directions to Meet Your Goals Take your medications as prescribed Follow your dietary instruction Follow activity as directed Ensure plenty of rest for recovery Drink fluids for hydration Keep your appointments as scheduled Take your immunizations and boosters as scheduled If your symptoms worsen call your PCP, if no PCP go to Urgent Care Center or Emergency Room Smoking is Dangerous to Your Health. Avoid second hand smoke Call the 24-hour crisis hotline for domestic abuse at Marika Odell MD Mar 06, 2017 18:07
[2017-03-07] MEDS ORDERED: lamoTRIgine 25 MG TAB PO SCH (09:00)
[2017-03-08 23:52] LABS: HCV RNA PCR LOGIU/ML 5.63 (())
[2017-03-11 12:57] LABS: PHENCYCLIDINE URINE NEG (NEG)
[2017-03-11 12:58] LABS: ECSTASY (MDMA) UR NEG (NEG); HEROIN (6-ACETYLMORPHINE) UR NEG (NEG); K2 SPICE UR NEG (NEG); OBMETHADONE UR NEG (NEG)
[2017-03-11 12:59] LABS: BATH SALTS (MDPV) UR NEG (NEG); GABAPENTIN UR NEG (NEG); HYDROMORPHONE U NEG (NEG)
== END 2017-03-06 18:51 | disposition home or self-care (01) ==
LOC: HOBED 15:41 → H2EA 16:53 → UNDODISOB 03-06 10:06
PROVIDERS: ADMIT Obstetrics & Gynecology; ATTEND Obstetrics & Gynecology
DX: O12.03 Gestational edema, third trimester (principal); G89.29 Other chronic pain; F41.9 Anxiety disorder, unspecified; R07.9 Chest pain, unspecified; R06.02 Shortness of breath; F13.20 Sedative, hypnotic or anxiolytic dependence, uncomplicated; E16.2 Hypoglycemia, unspecified; F06.8 Other specified mental disorders due to known physiological condition; R39.89 Other symptoms and signs involving the genitourinary system; Z3A.28 28 weeks gestation of pregnancy; Z72.0 Tobacco use; Z01.89 Encounter for other specified special examinations
CPT/HCPCS: 76816; 76937; 80053; 80074; 80307; 81001; 82550; 83036; 84484; 85025; 86592; 86703; 87040; 87086; 87522; 87640; 87641; 93005; 93306; 99283; G0481; J0295; J1650; J7120

== ENCOUNTER → 2017-03-10 | Outpatient (CLI) | payer MEDICAID ==
[~2017-03-10] MED LIST changes: -AMOX500C PO; -BACT800T5 PO; +BUPR8SUB SL; -CLIN1CAP5 PO; -CLON.5 PO; +CLON1 PO; +HYDR50CA PO; +LAMO25 PO; -SUBUTEX
[2017-03-10 18:19] LABS: AUTOMATED NEUTROPHIL # 3.9 TH/MM3 (1.8-7.7); BASOPHIL % 0.5 % (0.0-2.0); EOSINOPHIL # 0.1 TH/MM3 (0-0.4); EOSINOPHIL % 1.7 % (0.0-4.0); HEMATOCRIT 30.6 % (35.0-46.0); HEMO FLAGS DIFF FINAL; LYMPH % 34.8 % (9.0-44.0); LYMPHOCYTE # 2.3 TH/MM3 (1.0-4.8); MEAN CORPUSCULAR HEMOGLOBIN 30.7 PG (27.0-34.0); MEAN CORPUSCULAR HGB CONC 34.9 % (32.0-36.0); MONO % 5.7 % (0.0-8.0); NEUT % 57.3 % (16.0-70.0); PLATELET COUNT 241 TH/MM3 (150-450); RED BLOOD COUNT 3.48 MIL/MM3 (4.00-5.30); RED CELL DISTRIBUTION WIDTH 15.6 % (11.6-17.2); WHITE BLOOD COUNT 6.7 TH/MM3 (4.0-11.0)
[2017-03-10 18:21] LABS: BLOOD, URINE NEG (NEG); COMMENT (UR) CULT NOT INDICATED; CULTURE IF INDICATED CULT NOT INDICATED; GLUCOSE,URINE NEG (NEG); KETONE, URINE NEG (NEG); MUCUS URINE FEW /lpf (OCC); NITRITE,URINE NEG (NEG); SQUAMOUS EPITHELIAL CELL URINE 5 /hpf (0-5); URINE COLOR YELLOW (YELLW/STRAW)
[2017-03-10 18:47] LABS: AST (GOT) 106 U/L (15-37)
[2017-03-10 18:53] LABS: ALKALINE PHOSPHATASE 86 U/L (45-117); ALT (GPT) 130 U/L (10-53); INDIRECT BILIRUBIN 0.1 MG/DL (0.0-0.8); TOTAL BILIRUBIN ADULT 0.2 MG/DL (0.2-1.0)
[2017-03-16 16:55] LABS: HEMOGLOBIN A1a 1.1 %; HEMOGLOBIN A1b 0.8 %; HEMOGLOBIN Ao 87.7 %; HEMOGLOBIN F 0.8 %; HEMOGLOBIN LA1C 1.1 %
== END ==
LOC: HLAB 17:23
PROVIDERS: ATTEND Obstetrics & Gynecology
DX: O12.02 Gestational edema, second trimester (principal); B19.20 Unspecified viral hepatitis C without hepatic coma
CPT/HCPCS: 80076; 81001; 83036; 85025; 87902

== ENCOUNTER 2017-03-30 18:26 | Inpatient (IN) | payer MEDICAID ==
[~2017-03-30] VITALS: Ht 162.6 cm; Wt 56.7 kg
[2017-03-30] MEDS: LACTATED RINGER'S 1000 ML INJ 1,000 ML IV SCH (19:18)
--- NOTE | 2017-03-30 19:29 | HHI.HP ---
HPI Chief Complaint 32 6/7 week IUP with 2/8 BPP substance use disorder on MAT lymphangitis/lower extremity lymphedema Hep C Date Seen: Mar 30, 2017 Time Seen: 19:27 Travel History International Travel<30 Days: No Contact w/Intl Traveler<30Days: No Known Affected Area: No History of Present Illness HPI 32 yo wf at 32 6/7 weeks. Referred to me in late second trimester by hospital and laborists for care, due to her substance use disorder. She has had bacterial endocardits. She is hep C positive. She was in active addiction at the time of initial evaluation. She was chronic lower extremity lymphedema/lymphangitis and leg pain. She has severe anxiety disorder, PTSD and depression. She initially was considering adoption but is having second thoughts. Her living conditions are very insecure and she is exposed to many triggers daily. She was transitioned to subutex and has remained on 8 mg BID since that original discharge. She has been under great stress and did use methamphetamine once (yesterday) with regret and then noted marked decrease in movement. She came in today and BPP was 2/8 with only [place] reassuring. Her cervix is not favorable. She denies UCs, leaking, bleeding. She has no nausea, vomiting, diarrhea. She denies withdrawal symptoms on the 8 mg subutex BID and was seeking anxiety relief with the methamphetamine. She denies any symptoms of infection. Upon leaving the office to go to [facility] , she did perceive some movement. Weeks Gestation: 33 Para: 1 : 2 History Past Medical History Narrative Medical history as in [facility] history of seizure disorder, unclear if drug induced. Obstetric History Obstetric History one term infant Family History Family History: Negative Social History Alcohol Use: Yes Tobacco Use: Yes Substance Abuse: Yes Allergies-Medications (Allergen,Severity, Reaction): Coded Allergies: acetaminophen (Unverified Allergy, Severe, Hives, 03/15/17) VOMITING tramadol (Unverified Allergy, Severe, SEIZURE, 03/15/17) *MDRO Multi-Drug Resistant Organism (Unverified Adverse Reaction, Unknown , 01/19/17) MRSA (wound) 07/2014; MRSA (leg abscess)-09/11/16 Home Meds Active Scripts Lamotrigine (Lamictal) 25 Mg Tab, 50 MG PO DAILY for depression, #30 TAB Prov:Marika Odell MD 03/06/17 Hydroxyzine Pamoate (Hydroxyzine Pamoate) 50 Mg Cap, 50 MG PO Q6H Y for anxiety , #30 CAP Prov:Marika Odell MD 03/06/17 Clonazepam (Klonopin) 1 Mg Tab, 1 MG PO QID for Anxiety and/or Insomnia, #16 TAB Prov:Marika Odell MD 03/06/17 Buprenorphine (Buprenorphine) 8 Mg Subl, 8 MG SL BID for maintance therapy, #8 TAB Prov:Marika Odell MD 03/06/17 Reported Medications Multivit-Min W/Fe-FA ( Vitamins 0.8 mg) 1 Tab Tab 03/02/17 Review of Systems HENT: Headaches, Dental Difficulties Cardiovascular: Palpitations, Edema Gastrointestinal: Abdominal Pain, Loss of Appetite Musculoskeletal: Edema Neurologic: Weakness, Headache, Seizures Physical Exam Narrative GENERAL: Well-nourished, well-developed patient. SKIN: Warm and dry. HEAD: Normocephalic and atraumatic. EYES: No scleral icterus. No injection or drainage. ENT: No nasal drainage noted. Mucous membranes pink. Airway patent. NECK: Supple, trachea midline. No JVD. CARDIOVASCULAR: Regular rate and rhythm without murmurs, gallops, or rubs. RESPIRATORY: Breath sounds equal bilaterally. No accessory muscle use. BREASTS: Bilateral exam showed no masses , no retractions, no nipple discharge. ABDOMEN/GI: Abdomen soft, non-tender, bowel sounds present, no rebound, no guarding 33 FH ft/hard/80% BPP 0/2 EXTREMITIES:2+ edema, many pitting scars BACK: Nontender without obvious deformity. No CVA tenderness. NEUROLOGICAL: Awake and alert. Motor and sensory grossly within normal limits. Five out of 5 muscle strength in all muscle groups. Normal speech. Caprini VTE Risk Assessment Caprini VTE Risk Assessment: Mod/High Risk (score >= 2) Caprini Risk Assessment Model Point Value = 1 Point Value = 2 Point Value = 3 Point Value = 5 Age 41-60 Minor surgery BMI > 25 kg/m2 Swollen legs Varicose veins or History of unexplained or recurrent spontaneous Oral contraceptives or hormone replacement Sepsis (< 1 month) Serious lung disease, including pneumonia (< 1 month) Abnormal pulmonary function Acute myocardial infarction Congestive heart failure (< 1 month) History of inflammatory bowel disease Medical patient at bed rest Age 61-74 Arthroscopic surgery Major open surgery (> 45 min) Laparoscopic surgery (> 45 min) Malignancy Confined to bed (> 72 hours) Immobilizing plaster cast Central venous access Age >= 75 History of VTE Family history of VTE Factor V Leiden Prothrombin [id number] Lupus anticoagulant Anticardiolipin antibodies Elevated serum homocysteine Heparin-induced thrombocytopenia Other congenital or acquired thrombophilia Stroke (< 1 month) Elective arthroplasty Hip, pelvis, or leg fracture Acute spinal cord injury (< 1 month) Prophylaxis Regimen Total Risk Factor Score Risk Level Prophylaxis Regimen 0-1 Low Early ambulation 2 Moderate Order ONE of the following: *Sequential Compression Device (SCD) *Heparin 5000 units SQ BID 3-4 Higher Order ONE of the following medications: *Heparin 5000 units SQ TID *Enoxaparin/Lovenox 40 mg SQ daily (WT < 150 kg, CrCl > 30 mL/min) *Enoxaparin/Lovenox 30 mg SQ daily (WT < 150 kg, CrCl > 10-29 mL/min) *Enoxaparin/Lovenox 30 mg SQ BID (WT < 150 kg, CrCl > 30 mL/min) AND/OR *Sequential Compression Device (SCD) 5 or more Highest Order ONE of the following medications: *Heparin 5000 units SQ TID (Preferred with Epidurals) *Enoxaparin/Lovenox 40 mg SQ daily (WT < 150 kg, CrCl > 30 mL/min) *Enoxaparin/Lovenox 30 mg SQ daily (WT < 150 kg, CrCl > 10-29 mL/min) *Enoxaparin/Lovenox 30 mg SQ BID (WT < 150 kg, CrCl > 30 mL/min) AND *Sequential Compression Device (SCD) Data Data Orders Orders Admit To Inpatient (03/30/17 ) Diet Npo (03/31/17 Breakfast) Vital Signs (Adult) [id number] AWAKE (03/30/17 19:18) Heart (03/30/17 19:18) Activity Bed Rest With Brp (03/30/17 19:18) Complete Blood Count With Diff (03/30/17 19:18) Basic Metabolic Panel (Bmp) (03/30/17 19:18) Hepatic Functional Panel (03/30/17 19:18) Uric Acid (03/30/17 19:18) Urinalysis - C+S If Indicated (03/30/17 19:18) Lactated Ringer's 1000 Ml Inj (Lr 1000 M (03/30/17 19:18) Sodium Chloride 0.9% Flush (Ns Flush) (03/30/17 21:00) Sodium Chloride 0.9% Flush (Ns Flush) (03/30/17 19:30) Zolpidem (Ambien) (03/30/17 19:30) Ondansetron Odt (Zofran Odt) (03/30/17 19:30) Ob/Psych Drug Screen, Urine (03/30/17 19:18) Hold Clot (03/30/17 19:18) Betamethasone Inj (Celestone Soluspan In (03/30/17 19:30) Inpatient Certification (03/30/17 ) Specimen To Be Collected PRN (03/30/17 19:18) Assessment/Plan Problem List: (1) Tobacco abuse ICD Codes: Z72.0 - Tobacco abuse Status: Chronic (2) IV drug abuse ICD Codes: F19.10 - Other psychoactive substance abuse, uncomplicated Status: Acute (3) Narcotic abuse ICD Codes: F11.10 - Narcotic abuse Status: Chronic (4) Cellulitis and abscess of leg ICD Codes: L02.419 - Cutaneous abscess of limb, unspecified; L03.119 - Cellulitis of unspecified part of limb Status: Acute (5) Lymphadenopathy ICD Codes: R59.1 - Generalized enlarged lymph nodes Status: Acute (6) Anxiety disorder ICD Codes: F41.9 - Anxiety disorder Status: Acute (7) Seizure disorder ICD Codes: G40.909 - Seizure disorder Status: Acute (8) ICD Codes: Z33.1 - state, incidental Status: Acute (9) Substance induced mood disorder ICD Codes: F19.94 - Other psychoactive substance use, unspecified with psychoactive substance-induced mood disorder Status: Acute Assessment and Plan full labs, subutex, monitoring if surveillance continued to be non reassuring will proceed with delivery. discussed with as back up support Marika Odell MD Mar 30, 2017 19:29
[2017-03-30] MEDS ORDERED: SODIUM CHLORIDE 0.9% FLUSH 10 ML FLUSH IV FLUSH PRN (19:30)
[2017-03-30] MEDS ORDERED: ZOLPIDEM TARTRATE 5 MG TAB PO PRN (19:30)
[2017-03-30] MEDS ORDERED: ONDANSETRON ODT 4 MG TAB PO PRN (19:30)
[2017-03-30] MEDS: SODIUM CHLORIDE 0.9% FLUSH 10 ML FLUSH IV FLUSH SCH (21:00)
[2017-03-30] MEDS: PANTOPRAZOLE SOD 40 MG DELAYED RELEASE TAB PO SCH (23:11)
[2017-03-30] MEDS: BETAMETHASONE SOD PHOS/ACETATE SUSP 30 MG/5 ML VIAL IM SCH (23:11)
[2017-03-30] MEDS: BUPRENORPHINE HCL 8 MG SUBLINGUAL TAB SL SCH (23:11)
[2017-03-30 23:30] VITALS: RESP 18; TEMP 98.4
[2017-03-30 23:31] VITALS: BP 123/78; PULSE 88
[2017-03-30 23:44] LABS: AUTOMATED NEUTROPHIL # 5.9 TH/MM3 (1.8-7.7); BASOPHIL # 0.1 TH/MM3 (0-0.2); BASOPHIL % 0.6 % (0.0-2.0); EOSINOPHIL # 0.2 TH/MM3 (0-0.4); HEMATOCRIT 32.2 % (35.0-46.0); LYMPH % 28.2 % (9.0-44.0); LYMPHOCYTE # 2.6 TH/MM3 (1.0-4.8); MEAN CELL VOLUME 87.6 FL (80.0-100.0); MEAN CORPUSCULAR HEMOGLOBIN 29.1 PG (27.0-34.0); MEAN CORPUSCULAR HGB CONC 33.3 % (32.0-36.0); MONO % 5.2 % (0.0-8.0); PLATELET COUNT 273 TH/MM3 (150-450); RED BLOOD COUNT 3.67 MIL/MM3 (4.00-5.30); RED CELL DISTRIBUTION WIDTH 14.6 % (11.6-17.2); WHITE BLOOD COUNT 9.2 TH/MM3 (4.0-11.0)
[2017-03-30 23:45] LABS: HEMO FLAGS DIFF FINAL
[2017-03-30 23:56] LABS: ALKALINE PHOSPHATASE 85 U/L (45-117); TOTAL BILIRUBIN ADULT 0.3 MG/DL (0.2-1.0)
[2017-03-31] VITALS (10 sets, daily range): BP systolic 126–135; BP diastolic 76–90; PULSE 89–109; RESP 18; TEMP 97.7–98.8
[2017-03-31 00:01] LABS: ALT (GPT) 157 U/L (10-53); ANION GAP 10 MEQ/L (5-15); AST (GOT) 115 U/L (15-37); BICARBONATE 22.1 MEQ/L (21.0-32.0); BLOOD UREA NITROGEN 7 MG/DL (7-18); CHLORIDE 105 MEQ/L (98-107); GLOMERULAR FILTRATION RATE 136 ML/MIN (>89); INDIRECT BILIRUBIN 0.2 MG/DL (0.0-0.8); SODIUM (NA) 137 MEQ/L (136-145); URIC ACID 2.7 MG/DL (2.6-6.0)
[2017-03-31 00:03] LABS: BLOOD, URINE TRACE (NEG); COMMENT (UR) CULTURE INDICATED; CULTURE IF INDICATED CULTURE INDICATED; GLUCOSE,URINE NEG (NEG); KETONE, URINE NEG (NEG); MUCUS URINE FEW /lpf (OCC); NITRITE,URINE NEG (NEG); SQUAMOUS EPITHELIAL CELL URINE 1 /hpf (0-5); URINE COLOR YELLOW (YELLW/STRAW)
[2017-03-31 00:09] LABS: POTASSIUM 3.4 MEQ/L (3.5-5.1)
[2017-03-31] MEDS: LACTATED RINGER'S 1000 ML INJ 1,000 ML IV SCH ×2 (05:18→15:18)
[2017-03-31] MEDS: SODIUM CHLORIDE 0.9% FLUSH 10 ML FLUSH IV FLUSH SCH ×2 (09:00→21:00)
[2017-03-31] MEDS: PANTOPRAZOLE SOD 40 MG DELAYED RELEASE TAB PO SCH (09:31)
[2017-03-31] MEDS: clonazePAM 1 MG TAB PO SCH ×3 (09:31→21:58)
[2017-03-31] MEDS: BUPRENORPHINE HCL 8 MG SUBLINGUAL TAB SL SCH ×2 (09:32→21:13)
[2017-03-31 17:37] LABS: HEMATOCRIT 31.8 % (35.0-46.0); MEAN CORPUSCULAR HEMOGLOBIN 28.3 PG (27.0-34.0); MEAN CORPUSCULAR HGB CONC 32.5 % (32.0-36.0); PLATELET COUNT 269 TH/MM3 (150-450); RED BLOOD COUNT 3.65 MIL/MM3 (4.00-5.30); RED CELL DISTRIBUTION WIDTH 14.6 % (11.6-17.2); REVIEW FLAG FINAL; WHITE BLOOD COUNT 12.6 TH/MM3 (4.0-11.0)
[2017-03-31] MEDS ORDERED: CALCIUM CARBONATE 500 MG CHEWABLE TAB PO PRN (17:45)
[2017-03-31 17:55] LABS: ALT (GPT) 148 U/L (10-53); ANION GAP 9 MEQ/L (5-15); AST (GOT) 79 U/L (15-37); BICARBONATE 22.2 MEQ/L (21.0-32.0); BLOOD UREA NITROGEN 8 MG/DL (7-18); CHLORIDE 104 MEQ/L (98-107); GLOMERULAR FILTRATION RATE 125 ML/MIN (>89); POTASSIUM 3.6 MEQ/L (3.5-5.1); SODIUM (NA) 135 MEQ/L (136-145)
[2017-03-31 17:58] LABS: ALKALINE PHOSPHATASE 94 U/L (45-117); TOTAL BILIRUBIN ADULT 0.2 MG/DL (0.2-1.0)
--- NOTE | 2017-03-31 18:11 | HHI.PR ---
Subjective Remarks Doing ok today but having lots of anxiety. I was on Xanax before the pg Now I have been on Klonipin 1mg tid Also taking visteral as needed Baby is moving well this am Objective Vital Signs Date Time Temp Pulse Resp B/P (MAP) Pulse Ox O2 Delivery O2 Flow Rate FiO2 03/31/17 15:55 98.8 03/31/17 12:13 109 135/81 (99) 03/31/17 12:13 18 03/31/17 08:00 97.7 03/31/17 08:00 18 03/31/17 07:59 89 127/76 (93) 03/31/17 05:31 98.4 03/31/17 05:31 91 128/90 (103) 03/31/17 05:20 18 03/31/17 04:00 18 03/31/17 02:00 18 03/30/17 23:31 88 123/78 (93) 03/30/17 23:30 98.4 18 Result Diagram: 03/31/17 1640 03/31/17 1640 Other Results Chest is clear CV is RRR Abd is soft and NT, fundus is non tender Ext no CCE Assessment and Plan Assessment and Plan HD #2 Had a poor BPP but I have reviewed the entire strip and it is Cat 1. There is no decels. BPP today is 8/8 and will go to [id number] monitoring now. Will check her labs and her bile acids as well. Recent bile acids are 14. Not ready for discharge as she is not stable at this time. Christine Marr MD Mar 31, 2017 18:11
[2017-03-31] MEDS: BETAMETHASONE SOD PHOS/ACETATE SUSP 30 MG/5 ML VIAL IM SCH (19:38)
[2017-04-01] VITALS (7 sets, daily range): BP systolic 109–143; BP diastolic 57–85; PULSE 87–103; RESP 18; TEMP 97.5–98
[2017-04-01] MEDS: LACTATED RINGER'S 1000 ML INJ 1,000 ML IV SCH ×3 (01:18→21:18)
[2017-04-01] MEDS: clonazePAM 1 MG TAB PO SCH ×3 (06:00→20:03)
[2017-04-01] MEDS: SODIUM CHLORIDE 0.9% FLUSH 10 ML FLUSH IV FLUSH SCH ×2 (09:00→21:00)
[2017-04-01] MEDS: PANTOPRAZOLE SOD 40 MG DELAYED RELEASE TAB PO SCH (09:05)
[2017-04-01] MEDS: BUPRENORPHINE HCL 8 MG SUBLINGUAL TAB SL SCH ×2 (09:05→20:59)
--- NOTE | 2017-04-01 14:14 | HHI.PR ---
Subjective Remarks I am still having lots of anxiety and stressed out. I am an addict and I will relapse if I do not get this under control. Can you help me with my anxiety? My baby is moving well. Objective Vital Signs Date Time Temp Pulse Resp B/P (MAP) Pulse Ox O2 Delivery O2 Flow Rate FiO2 04/01/17 09:17 97.9 18 04/01/17 09:05 90 109/57 (74) 04/01/17 00:03 98 126/78 (94) 03/31/17 19:41 18 03/31/17 19:38 98 126/76 (93) 03/31/17 15:55 98.8 Result Diagram: 03/31/17 1640 03/31/17 1640 Other Results chest is clear cv rrr abd gravid and not tender ext cce Assessment and Plan Assessment and Plan HD #3 IUP @ 36/6 Severe anxiety.. will increase the klonipin to q6h and see how that does Very concerned about sending her home with this amount of anxiety and the possibility of relapse. She is not ready to be discharged due to her extreme anxiety that we have not been able to control. Hopefully we will be able to control this anxiety with the minimal amount of medicine. Anemia will start some Fe. Discussed Condition With long discussion with the patient Discharge Planning Plan to d/c home when the anxiety is controlled. Christine Marr MD Apr 01, 2017 14:14
[2017-04-01] MEDS: FERROUS SULFATE 325 MG (65 MG ELEMENTAL IRON) TAB PO SCH (17:05)
[2017-04-01] MEDS: DOCUSATE SODIUM 50 MG/SENNA 8.6 MG TAB PO SCH (17:05)
[2017-04-02] VITALS (9 sets, daily range): BP systolic 98–125; BP diastolic 45–81; PULSE 84–107; RESP 18; TEMP 97.6–98.7
[2017-04-02] MEDS: clonazePAM 1 MG TAB PO SCH ×4 (01:59→20:14)
[2017-04-02] MEDS: LACTATED RINGER'S 1000 ML INJ 1,000 ML IV SCH ×2 (07:18→17:12)
[2017-04-02] MEDS: SODIUM CHLORIDE 0.9% FLUSH 10 ML FLUSH IV FLUSH SCH ×2 (09:00→21:32)
[2017-04-02] MEDS: BUPRENORPHINE HCL 8 MG SUBLINGUAL TAB SL SCH ×2 (09:21→21:32)
[2017-04-02] MEDS: PANTOPRAZOLE SOD 40 MG DELAYED RELEASE TAB PO SCH (09:21)
[2017-04-02] MEDS: DOCUSATE SODIUM 50 MG/SENNA 8.6 MG TAB PO SCH (09:21)
--- NOTE | 2017-04-02 14:31 | HHI.PR ---
Subjective Remarks Feeling a little bit better but I still have some anxiety issues. I definitely do not want to go out use again but I know that the anxiety we'll leave me in that direction. I am taking Vistaril with each Klonopin dose and that seems to help a bit. The baby is moving well and I am feeling better. Normal bowel and bladder function. Tolerating diet well Objective Vital Signs Date Time Temp Pulse Resp B/P (MAP) Pulse Ox O2 Delivery O2 Flow Rate FiO2 04/02/17 12:36 84 106/59 (75) 04/02/17 12:35 97.9 18 04/02/17 08:00 18 04/02/17 07:58 85 98/45 (62) 04/02/17 07:58 97.6 04/02/17 02:00 98.4 18 04/02/17 01:59 107 125/76 (92) 04/01/17 19:19 87 114/71 (85) 04/01/17 19:18 97.5 18 04/01/17 14:18 103 143/85 (104) 04/01/17 14:16 98.0 18 Result Diagram: 03/31/17 1640 03/31/17 1640 Other Results Chest is clear Heart has a regular rate and rhythm The abdomen is gravid nontender there is no liver tenderness Extremities small amount of pedal edema but no calf tenderness or abnormal swelling Assessment and Plan Assessment and Plan HD #4 IUP @ 32/6 Severe anxiety this is not being controlled with 4 mg of Klonopin and intermittent Vistaril we will go ahead and start some Minipress for agitation and see if this helps. I have asked her to journal her feelings and how all the medicine is working so we can evaluate the effects better She is not ready for discharge at this time as we need to control her anxiety before she goes home otherwise she may use again and she really does not want to. I have discussed adding this new medicine and we will see how that works. Her blood pressure is on the low side so I will have the nurses monitor the baby for several hours after the first dose to make sure it does not affect uterine perfusion. Elevated liver function tests these are stable at this time and I will repeat those today. We are still waiting for the bile acids to come back. Her itching is much better now Drug use she is very intelligent and does not want to use any more however recognizes that the anxiety may cause her to use again that is why so important for her to have exactly controlled at this time. Poor biophysical profile in the office I will repeat this either today or tomorrow and personally call the tach to let her know Anemia will start some Fe. Discussed Condition With Patient and boyfriend and nurse Discharge Planning Plan to discharge once her anxiety is under good control Christine Marr MD Apr 02, 2017 14:31
[2017-04-02 15:53] LABS: INDIRECT BILIRUBIN 0.1 MG/DL (0.0-0.8); TOTAL BILIRUBIN ADULT 0.2 MG/DL (0.2-1.0)
[2017-04-02] MEDS: PRAZOSIN HCL 1 MG CAP PO PRN (16:50)
[2017-04-03] VITALS (14 sets, daily range): BP systolic 110–127; BP diastolic 66–74; PULSE 88–119; RESP 16–20; TEMP 97.7–98.7
[2017-04-03] MEDS: clonazePAM 1 MG TAB PO SCH ×4 (01:58→21:24)
[2017-04-03] MEDS: LACTATED RINGER'S 1000 ML INJ 1,000 ML IV SCH ×3 (03:18→23:18)
[2017-04-03] MEDS: DOCUSATE SODIUM 50 MG/SENNA 8.6 MG TAB PO SCH (09:25)
[2017-04-03] MEDS: BUPRENORPHINE HCL 8 MG SUBLINGUAL TAB SL SCH ×2 (09:25→21:24)
[2017-04-03] MEDS: SODIUM CHLORIDE 0.9% FLUSH 10 ML FLUSH IV FLUSH SCH ×2 (09:25→16:00)
[2017-04-03] MEDS: PANTOPRAZOLE SOD 40 MG DELAYED RELEASE TAB PO SCH (09:25)
--- NOTE | 2017-04-03 09:57 | PD.OB.ANTE ---
Subjective Diagnosis: (1) Tobacco abuse (2) IV drug abuse (3) Narcotic abuse (4) Cellulitis and abscess of leg (5) Lymphadenopathy (6) Anxiety disorder (7) Seizure disorder (8) (9) Substance induced mood disorder Interval History 33 weeks today surveillance over weekend reassuring no contractions, leaking or bleeding GFM very distraught that her partner just got pulled over with a suspended license and will need to be bonded out. Crying not complaining of pain in legs which are much better with respect to lymphangitis. Objective Vital Signs Vital Signs Date Time Temp Pulse Resp B/P (MAP) Pulse Ox O2 Delivery O2 Flow Rate FiO2 04/03/17 07:49 16 04/03/17 07:48 89 125/70 (88) 04/03/17 07:45 97.7 04/02/17 19:35 98.7 04/02/17 19:35 96 117/81 (93) 04/02/17 18:00 100 109/70 (83) 04/02/17 16:49 95 116/77 (90) 04/02/17 12:36 84 106/59 (75) 04/02/17 12:35 97.9 18 Lab & Micro Results Test 04/02/17 15:08 Total Bilirubin 0.2 MG/DL Direct Bilirubin 0.1 MG/DL Indirect Bilirubin 0.1 MG/DL Aspartate Amino Transf (AST/SGOT) 45 U/L Alanine Aminotransferase (ALT/SGPT) 107 U/L Alkaline Phosphatase 84 U/L Total Protein 7.4 GM/DL Albumin 2.6 GM/DL Date/Time Source Procedure Growth Status 03/30/17 22:00 Urine Clean Catch Urine Culture - Final NO GROWTH IN 48 HOURS. Complete Physical Exam GENERAL: Well-nourished, well-developed patient. CARDIOVASCULAR: Regular rate and rhythm without murmurs, gallops, or rubs. RESPIRATORY: Breath sounds equal bilaterally. No accessory muscle use. ABDOMEN/GI: Abdomen soft, non-tender. Fundus:33 GENITOURINARY: External Genitalia: intact and normal in appearance 50% firm, closed anterior not engaged] category one EXTREMITIES: many old scars and pits in skin. Moderate edema markedly reduced from prior to admission no cellulitis noted Assessment and Plan Problem List: (1) Tobacco abuse ICD Codes: Z72.0 - Tobacco abuse Status: Chronic (2) IV drug abuse ICD Codes: F19.10 - Other psychoactive substance abuse, uncomplicated Status: Acute (3) Narcotic abuse ICD Codes: F11.10 - Narcotic abuse Status: Chronic (4) Cellulitis and abscess of leg ICD Codes: L02.419 - Cutaneous abscess of limb, unspecified; L03.119 - Cellulitis of unspecified part of limb Status: Acute (5) Lymphadenopathy ICD Codes: R59.1 - Generalized enlarged lymph nodes Status: Acute (6) Anxiety disorder ICD Codes: F41.9 - Anxiety disorder Status: Acute (7) Seizure disorder ICD Codes: G40.909 - Seizure disorder Status: Acute (8) ICD Codes: Z33.1 - state, incidental Status: Acute (9) Substance induced mood disorder ICD Codes: F19.94 - Other psychoactive substance use, unspecified with psychoactive substance-induced mood disorder Status: Acute Plan: admitted last week with 2/8 BPP post a dose of methamphetamine and severe social stress. Had otherwise been stable on medical maintenance of her substance use disorder will need to stay until Monday and have evaluation with regarding continued antepartum care vs discharge to unstable environment. baby reassuring at this time. Assessment and Plan full labs, subutex, monitoring if surveillance continued to be non reassuring will proceed with delivery. discussed with as back up support Marika Odell MD Apr 03, 2017 09:57
[2017-04-03] MEDS: PRAZOSIN HCL 1 MG CAP PO PRN (21:27)
[2017-04-03] MEDS: FERROUS SULFATE 325 MG (65 MG ELEMENTAL IRON) TAB PO SCH (21:33)
[2017-04-04] VITALS (14 sets, daily range): BP systolic 120–159; BP diastolic 75–89; PULSE 106–167; RESP 16–22; TEMP 97.8–99.3
[2017-04-04] MEDS: BUPRENORPHINE HCL 8 MG SUBLINGUAL TAB SL SCH ×2 (08:44→21:35)
[2017-04-04] MEDS: DOCUSATE SODIUM 50 MG/SENNA 8.6 MG TAB PO SCH (08:44)
[2017-04-04] MEDS: NICOTINE 21 MG/24 HR PATCH T-DERMAL SCH (08:45)
[2017-04-04] MEDS: PANTOPRAZOLE SOD 40 MG DELAYED RELEASE TAB PO SCH (08:45)
[2017-04-04] MEDS: clonazePAM 1 MG TAB PO SCH ×3 (08:45→21:34)
[2017-04-04] MEDS: SODIUM CHLORIDE 0.9% FLUSH 10 ML FLUSH IV FLUSH SCH ×2 (08:46→21:35)
[2017-04-04] MEDS: REMOVE OLD PATCH T-DERMAL SCH (08:46)
[2017-04-04] MEDS: LACTATED RINGER'S 1000 ML INJ 1,000 ML IV SCH ×2 (09:18→19:18)
[2017-04-04] MEDS: PRAZOSIN HCL 1 MG CAP PO PRN (14:30)
--- NOTE | 2017-04-04 18:16 | PD.OB.ANTE ---
Subjective Diagnosis: (1) Tobacco abuse (2) IV drug abuse (3) Narcotic abuse (4) Cellulitis and abscess of leg (5) Lymphadenopathy (6) Anxiety disorder (7) Seizure disorder (8) (9) Substance induced mood disorder Interval History again distraught to learn about outstanding warrant. significant other was bonded out and working. despite this stress, no significant contractions; no leaking bleeding GFM itching is stable Objective Vital Signs Vital Signs Date Time Temp Pulse Resp B/P (MAP) Pulse Ox O2 Delivery O2 Flow Rate FiO2 04/04/17 14:21 106 120/75 (90) 04/04/17 14:20 97.8 18 04/04/17 09:00 98.0 22 04/04/17 08:53 112 126/84 (98) 04/04/17 06:33 18 04/04/17 05:00 16 04/04/17 03:00 16 04/04/17 02:00 16 04/04/17 01:00 18 04/03/17 22:55 92 110/66 (81) 04/03/17 22:54 98.5 04/03/17 22:51 20 04/03/17 19:41 98.7 04/03/17 19:27 119 04/03/17 19:27 115/67 (83) 04/03/17 19:18 18 Lab & Micro Results Date/Time Source Procedure Growth Status 03/30/17 22:00 Urine Clean Catch Urine Culture - Final NO GROWTH IN 48 HOURS. Complete Physical Exam GENERAL: Well-nourished, well-developed patient. CARDIOVASCULAR: Regular rate and rhythm without murmurs, gallops, or rubs. RESPIRATORY: Breath sounds equal bilaterally. No accessory muscle use. ABDOMEN/GI: Abdomen soft, non-tender. Fundus: [-] GENITOURINARY: External Genitalia: intact and normal in appearance 50%/ft/firm/anterior reactive] EXTREMITIES:edema has diminished Assessment and Plan Problem List: (1) Tobacco abuse ICD Codes: Z72.0 - Tobacco abuse Status: Chronic (2) IV drug abuse ICD Codes: F19.10 - Other psychoactive substance abuse, uncomplicated Status: Acute (3) Narcotic abuse ICD Codes: F11.10 - Narcotic abuse Status: Chronic (4) Cellulitis and abscess of leg ICD Codes: L02.419 - Cutaneous abscess of limb, unspecified; L03.119 - Cellulitis of unspecified part of limb Status: Acute (5) Lymphadenopathy ICD Codes: R59.1 - Generalized enlarged lymph nodes Status: Acute (6) Anxiety disorder ICD Codes: F41.9 - Anxiety disorder Status: Acute (7) Seizure disorder ICD Codes: G40.909 - Seizure disorder Status: Acute (8) ICD Codes: Z33.1 - state, incidental Status: Acute (9) Substance induced mood disorder ICD Codes: F19.94 - Other psychoactive substance use, unspecified with psychoactive substance-induced mood disorder Status: Acute Plan: admitted last week with 2/8 BPP post a dose of methamphetamine and severe social stress. Had otherwise been stable on medical maintenance of her substance use disorder will need to stay until Monday and have evaluation with regarding continued antepartum care vs discharge to unstable environment. baby reassuring at this time. (10) Cholestasis during in third trimester ICD Codes: O26.613 - Liver and biliary tract disorders in , third trimester; K83.1 - Obstruction of bile duct Assessment and Plan full labs, subutex, monitoring if surveillance continued to be non reassuring will proceed with delivery. repeat bile acids and LFTS Marika Odell MD Apr 04, 2017 18:16
[2017-04-05] VITALS (7 sets, daily range): BP systolic 108–156; BP diastolic 64–80; PULSE 97–128; RESP 16–20; TEMP 97.7–98.2
[2017-04-05] MEDS: clonazePAM 1 MG TAB PO SCH ×4 (02:00→20:07)
[2017-04-05] MEDS: LACTATED RINGER'S 1000 ML INJ 1,000 ML IV SCH ×2 (05:18→15:18)
[2017-04-05 06:10] LABS: INDIRECT BILIRUBIN 0.1 MG/DL (0.0-0.8); TOTAL BILIRUBIN ADULT 0.2 MG/DL (0.2-1.0)
[2017-04-05 06:23] LABS: AUTOMATED NEUTROPHIL # 7.1 TH/MM3 (1.8-7.7); BASOPHIL % 0.2 % (0.0-2.0); EOSINOPHIL # 0.1 TH/MM3 (0-0.4); EOSINOPHIL % 0.7 % (0.0-4.0); HEMATOCRIT 32.1 % (35.0-46.0); HEMO FLAGS DIFF FINAL; LYMPH % 29.9 % (9.0-44.0); LYMPHOCYTE # 3.4 TH/MM3 (1.0-4.8); MEAN CELL VOLUME 87.6 FL (80.0-100.0); MEAN CORPUSCULAR HEMOGLOBIN 30.1 PG (27.0-34.0); MEAN CORPUSCULAR HGB CONC 34.3 % (32.0-36.0); MONO % 6.6 % (0.0-8.0); NEUT % 62.6 % (16.0-70.0); PLATELET COUNT 290 TH/MM3 (150-450); RED BLOOD COUNT 3.66 MIL/MM3 (4.00-5.30); RED CELL DISTRIBUTION WIDTH 14.3 % (11.6-17.2); WHITE BLOOD COUNT 11.3 TH/MM3 (4.0-11.0)
--- NOTE | 2017-04-05 06:58 | PD.OB.ANTE ---
Subjective Diagnosis: (1) Tobacco abuse (2) IV drug abuse (3) Narcotic abuse (4) Cellulitis and abscess of leg (5) Lymphadenopathy (6) Anxiety disorder (7) Seizure disorder (8) (9) Substance induced mood disorder (10) Cholestasis during in third trimester Interval History 33 2 [facility] hospital day 7 long standing polysubstance abuse cholestasis of with stable or declining LFTs and karina salts pending BPP of 09/07 at admission with initial intent of section (assuming no improvement) . Baby responded well to fluids, stable medication administration and lack of other exposures Current surveillance is reassuring PTSD, severe anxiety disorder chronic lymphangitis and lymphedema improved on bed rest. currently sleeping soundly after aggitated night. no leaking, bleeding, contractions good movement no [place] MITCHELL blurred vision Objective Vital Signs Vital Signs Date Time Temp Pulse Resp B/P (MAP) Pulse Ox O2 Delivery O2 Flow Rate FiO2 04/05/17 05:56 16 04/05/17 04:00 16 04/05/17 01:30 18 04/04/17 23:54 98.9 18 04/04/17 23:53 115 135/89 (104) 04/04/17 20:17 167 04/04/17 20:17 159/77 (104) 04/04/17 20:16 99.3 04/04/17 20:14 18 04/04/17 14:21 106 120/75 (90) 04/04/17 14:20 97.8 18 04/04/17 09:00 98.0 22 04/04/17 08:53 112 126/84 (98) Lab & Micro Results Test 04/05/17 04:45 04/05/17 04:46 White Blood Count 11.3 TH/MM3 Red Blood Count 3.66 MIL/MM3 Hemoglobin 11.0 GM/DL Hematocrit 32.1 % Mean Corpuscular Volume 87.6 FL Mean Corpuscular Hemoglobin 30.1 PG Mean Corpuscular Hemoglobin Concent 34.3 % Red Cell Distribution Width 14.3 % Platelet Count 290 TH/MM3 Mean Platelet Volume 8.2 FL Neutrophils (%) (Auto) 62.6 % Lymphocytes (%) (Auto) 29.9 % Monocytes (%) (Auto) 6.6 % Eosinophils (%) (Auto) 0.7 % Basophils (%) (Auto) 0.2 % Neutrophils # (Auto) 7.1 TH/MM3 Lymphocytes # (Auto) 3.4 TH/MM3 Monocytes # (Auto) 0.7 TH/MM3 Eosinophils # (Auto) 0.1 TH/MM3 Basophils # (Auto) 0.0 TH/MM3 CBC Comment DIFF FINAL Differential Comment Total Bilirubin 0.2 MG/DL Direct Bilirubin 0.1 MG/DL Indirect Bilirubin 0.1 MG/DL Aspartate Amino Transf (AST/SGOT) 34 U/L Alanine Aminotransferase (ALT/SGPT) 77 U/L Alkaline Phosphatase 86 U/L Total Protein 7.5 GM/DL Albumin 2.5 GM/DL Date/Time Source Procedure Growth Status 03/30/17 22:00 Urine Clean Catch Urine Culture - Final NO GROWTH IN 48 HOURS. Complete Physical Exam GENERAL: Well-nourished, well-developed patient. CARDIOVASCULAR: Regular rate and rhythm without murmurs, gallops, or rubs. RESPIRATORY: Breath sounds equal bilaterally. No accessory muscle use. ABDOMEN/GI: Abdomen soft, non-tender. 33 weeks 50/ft/firm/vertex EXTREMITIES: minimal edema, many scars and pitting strip reassuring Assessment and Plan Problem List: (1) Tobacco abuse ICD Codes: Z72.0 - Tobacco abuse Status: Chronic (2) IV drug abuse ICD Codes: F19.10 - Other psychoactive substance abuse, uncomplicated Status: Acute (3) Narcotic abuse ICD Codes: F11.10 - Narcotic abuse Status: Chronic (4) Cellulitis and abscess of leg ICD Codes: L02.419 - Cutaneous abscess of limb, unspecified; L03.119 - Cellulitis of unspecified part of limb Status: Acute (5) Lymphadenopathy ICD Codes: R59.1 - Generalized enlarged lymph nodes Status: Acute (6) Anxiety disorder ICD Codes: F41.9 - Anxiety disorder Status: Acute (7) Seizure disorder ICD Codes: G40.909 - Seizure disorder Status: Acute (8) ICD Codes: Z33.1 - state, incidental Status: Acute (9) Substance induced mood disorder ICD Codes: F19.94 - Other psychoactive substance use, unspecified with psychoactive substance-induced mood disorder Status: Acute Plan: admitted last week with 2/8 BPP post a dose of methamphetamine and severe social stress. Had otherwise been stable on medical maintenance of her substance use disorder will need to stay until Monday and have evaluation with regarding continued antepartum care vs discharge to unstable environment. baby reassuring at this time. (10) Cholestasis during in third trimester ICD Codes: O26.613 - Liver and biliary tract disorders in , third trimester; K83.1 - Obstruction of bile duct Assessment and Plan continue medication management social work faculty member consult consult awaiting bile salts Marika Odell MD Apr 05, 2017 06:57
[2017-04-05] MEDS: NICOTINE 21 MG/24 HR PATCH T-DERMAL SCH (08:58)
[2017-04-05] MEDS: BUPRENORPHINE HCL 8 MG SUBLINGUAL TAB SL SCH ×2 (08:59→21:14)
[2017-04-05] MEDS: PANTOPRAZOLE SOD 40 MG DELAYED RELEASE TAB PO SCH (08:59)
[2017-04-05] MEDS: SODIUM CHLORIDE 0.9% FLUSH 10 ML FLUSH IV FLUSH SCH (08:59)
[2017-04-05] MEDS: FERROUS SULFATE 325 MG (65 MG ELEMENTAL IRON) TAB PO SCH (09:00)
[2017-04-05] MEDS: REMOVE OLD PATCH T-DERMAL SCH (09:00)
[2017-04-05] MEDS: DOCUSATE SODIUM 50 MG/SENNA 8.6 MG TAB PO SCH (09:11)
--- NOTE | 2017-04-05 12:05 | HHI.DCPOC ---
Discharge Care Plan Report Symptoms to Your Doctor -Temperature above 100.5 degrees -Redness, of incision or excessive or foul smelling drainage -Unusual pain or calf pain -Increased vaginal bleeding -Painful or difficulty urinating -Feelings of extreme sadness or anxiety after 2 weeks Goals to Promote Your Health * To prevent worsening of your condition and complications * To maintain your health at the optimal level Directions to Meet Your Goals Take your medications as prescribed Follow your dietary instruction Follow activity as directed Ensure plenty of rest for recovery Drink fluids for hydration Keep your appointments as scheduled Take your immunizations and boosters as scheduled If your symptoms worsen call your PCP, if no PCP go to Urgent Care Center or Emergency Room Smoking is Dangerous to Your Health. Avoid second hand smoke Call the 24-hour crisis hotline for domestic abuse at Marika Odell MD Apr 05, 2017 12:05
--- NOTE | 2017-04-05 12:06 | PD.OB.ANTE ---
Subjective Diagnosis: (1) Tobacco abuse (2) IV drug abuse (3) Narcotic abuse (4) Cellulitis and abscess of leg (5) Lymphadenopathy (6) Anxiety disorder (7) Seizure disorder (8) (9) Substance induced mood disorder (10) Cholestasis during in third trimester Interval History perinatology evaluation reassuring. Bile acids still pending but LFTs and clinical symptoms speak against cholestasis at this time. will move toward discharge and close outpatient follow up. Objective Vital Signs Vital Signs Date Time Temp Pulse Resp B/P (MAP) Pulse Ox O2 Delivery O2 Flow Rate FiO2 04/05/17 08:54 97.7 97 20 108/64 (79) 04/05/17 05:56 16 04/05/17 04:00 16 04/05/17 01:30 18 04/04/17 23:54 98.9 18 04/04/17 23:53 115 135/89 (104) 04/04/17 20:17 167 04/04/17 20:17 159/77 (104) 04/04/17 20:16 99.3 04/04/17 20:14 18 04/04/17 14:21 106 120/75 (90) 04/04/17 14:20 97.8 18 Lab & Micro Results Test 04/05/17 04:45 04/05/17 04:46 White Blood Count 11.3 TH/MM3 Red Blood Count 3.66 MIL/MM3 Hemoglobin 11.0 GM/DL Hematocrit 32.1 % Mean Corpuscular Volume 87.6 FL Mean Corpuscular Hemoglobin 30.1 PG Mean Corpuscular Hemoglobin Concent 34.3 % Red Cell Distribution Width 14.3 % Platelet Count 290 TH/MM3 Mean Platelet Volume 8.2 FL Neutrophils (%) (Auto) 62.6 % Lymphocytes (%) (Auto) 29.9 % Monocytes (%) (Auto) 6.6 % Eosinophils (%) (Auto) 0.7 % Basophils (%) (Auto) 0.2 % Neutrophils # (Auto) 7.1 TH/MM3 Lymphocytes # (Auto) 3.4 TH/MM3 Monocytes # (Auto) 0.7 TH/MM3 Eosinophils # (Auto) 0.1 TH/MM3 Basophils # (Auto) 0.0 TH/MM3 CBC Comment DIFF FINAL Differential Comment Total Bilirubin 0.2 MG/DL Direct Bilirubin 0.1 MG/DL Indirect Bilirubin 0.1 MG/DL Aspartate Amino Transf (AST/SGOT) 34 U/L Alanine Aminotransferase (ALT/SGPT) 77 U/L Alkaline Phosphatase 86 U/L Total Protein 7.5 GM/DL Albumin 2.5 GM/DL Date/Time Source Procedure Growth Status 03/30/17 22:00 Urine Clean Catch Urine Culture - Final NO GROWTH IN 48 HOURS. Complete Physical Exam GENERAL: Well-nourished, well-developed patient. CARDIOVASCULAR: Regular rate and rhythm without murmurs, gallops, or rubs. RESPIRATORY: Breath sounds equal bilaterally. No accessory muscle use. ABDOMEN/GI: Abdomen soft, non-tender. Fundus: [-] GENITOURINARY: External Genitalia: intact and normal in appearance Cervix: [-] Dilatation: [-] Effacement: [-] Station: [-] Presentation: [-] Membranes: [-] Uterine Contractions: [-] FHT's: Category: [-] Baseline: [-] Reactive: [-] Variability: [-] Decels: [-] EXTREMITIES: No cyanosis or edema, non-tender, without signs of DVT. Assessment and Plan Problem List: (1) Tobacco abuse ICD Codes: Z72.0 - Tobacco abuse Status: Chronic (2) IV drug abuse ICD Codes: F19.10 - Other psychoactive substance abuse, uncomplicated Status: Acute (3) Narcotic abuse ICD Codes: F11.10 - Narcotic abuse Status: Chronic (4) Cellulitis and abscess of leg ICD Codes: L02.419 - Cutaneous abscess of limb, unspecified; L03.119 - Cellulitis of unspecified part of limb Status: Acute (5) Lymphadenopathy ICD Codes: R59.1 - Generalized enlarged lymph nodes Status: Acute (6) Anxiety disorder ICD Codes: F41.9 - Anxiety disorder Status: Acute (7) Seizure disorder ICD Codes: G40.909 - Seizure disorder Status: Acute (8) ICD Codes: Z33.1 - state, incidental Status: Acute (9) Substance induced mood disorder ICD Codes: F19.94 - Other psychoactive substance use, unspecified with psychoactive substance-induced mood disorder Status: Acute Plan: admitted last week with 2/8 BPP post a dose of methamphetamine and severe social stress. Had otherwise been stable on medical maintenance of her substance use disorder will need to stay until Monday and have evaluation with regarding continued antepartum care vs discharge to unstable environment. baby reassuring at this time. (10) Cholestasis during in third trimester ICD Codes: O26.613 - Liver and biliary tract disorders in , third trimester; K83.1 - Obstruction of bile duct Assessment and Plan continue medication management social sciences lecturer consult consult awaiting bile salts Marika Odell MD Apr 05, 2017 12:06
--- NOTE | 2017-04-05 18:55 | PD.OB.ANTE ---
Subjective Diagnosis: (1) Tobacco abuse (2) IV drug abuse (3) Narcotic abuse (4) Cellulitis and abscess of leg (5) Lymphadenopathy (6) Anxiety disorder (7) Seizure disorder (8) (9) Substance induced mood disorder (10) Cholestasis during in third trimester Interval History Spoke with perinatologist today and explained that Susan's obtunded behavior was due to meds and complete and total lack of sleep. She is alert and oriented and appropriate now. Unfortunately she has developed recurring severe itching tonight with her bile acids still pending. Will start ursodiol and see if helps. Hold off discharge until tomorrow. Objective Vital Signs Vital Signs Date Time Temp Pulse Resp B/P (MAP) Pulse Ox O2 Delivery O2 Flow Rate FiO2 04/05/17 12:18 20 04/05/17 12:14 108 127/64 (85) 04/05/17 08:54 97.7 97 20 108/64 (79) 04/05/17 05:56 16 04/05/17 04:00 16 04/05/17 01:30 18 04/04/17 23:54 98.9 18 04/04/17 23:53 115 135/89 (104) 04/04/17 20:17 167 04/04/17 20:17 159/77 (104) 04/04/17 20:16 99.3 04/04/17 20:14 18 Lab & Micro Results Test 04/05/17 04:45 04/05/17 04:46 White Blood Count 11.3 TH/MM3 Red Blood Count 3.66 MIL/MM3 Hemoglobin 11.0 GM/DL Hematocrit 32.1 % Mean Corpuscular Volume 87.6 FL Mean Corpuscular Hemoglobin 30.1 PG Mean Corpuscular Hemoglobin Concent 34.3 % Red Cell Distribution Width 14.3 % Platelet Count 290 TH/MM3 Mean Platelet Volume 8.2 FL Neutrophils (%) (Auto) 62.6 % Lymphocytes (%) (Auto) 29.9 % Monocytes (%) (Auto) 6.6 % Eosinophils (%) (Auto) 0.7 % Basophils (%) (Auto) 0.2 % Neutrophils # (Auto) 7.1 TH/MM3 Lymphocytes # (Auto) 3.4 TH/MM3 Monocytes # (Auto) 0.7 TH/MM3 Eosinophils # (Auto) 0.1 TH/MM3 Basophils # (Auto) 0.0 TH/MM3 CBC Comment DIFF FINAL Differential Comment Total Bilirubin 0.2 MG/DL Direct Bilirubin 0.1 MG/DL Indirect Bilirubin 0.1 MG/DL Aspartate Amino Transf (AST/SGOT) 34 U/L Alanine Aminotransferase (ALT/SGPT) 77 U/L Alkaline Phosphatase 86 U/L Total Protein 7.5 GM/DL Albumin 2.5 GM/DL Date/Time Source Procedure Growth Status 03/30/17 22:00 Urine Clean Catch Urine Culture - Final NO GROWTH IN 48 HOURS. Complete Physical Exam GENERAL: Well-nourished, well-developed patient. CARDIOVASCULAR: Regular rate and rhythm without murmurs, gallops, or rubs. RESPIRATORY: Breath sounds equal bilaterally. No accessory muscle use. ABDOMEN/GI: Abdomen soft, non-tender. Fundus: [-] GENITOURINARY: External Genitalia: intact and normal in appearance Cervix: [-] Dilatation: [-] Effacement: [-] Station: [-] Presentation: [-] Membranes: [-] Uterine Contractions: [-] FHT's: Category: [-] Baseline: [-] Reactive: [-] Variability: [-] Decels: [-] EXTREMITIES: No cyanosis or edema, non-tender, without signs of DVT. Assessment and Plan Problem List: (1) Tobacco abuse ICD Codes: Z72.0 - Tobacco abuse Status: Chronic (2) IV drug abuse ICD Codes: F19.10 - Other psychoactive substance abuse, uncomplicated Status: Acute (3) Narcotic abuse ICD Codes: F11.10 - Narcotic abuse Status: Chronic (4) Cellulitis and abscess of leg ICD Codes: L02.419 - Cutaneous abscess of limb, unspecified; L03.119 - Cellulitis of unspecified part of limb Status: Acute (5) Lymphadenopathy ICD Codes: R59.1 - Generalized enlarged lymph nodes Status: Acute (6) Anxiety disorder ICD Codes: F41.9 - Anxiety disorder Status: Acute (7) Seizure disorder ICD Codes: G40.909 - Seizure disorder Status: Acute (8) ICD Codes: Z33.1 - state, incidental Status: Acute (9) Substance induced mood disorder ICD Codes: F19.94 - Other psychoactive substance use, unspecified with psychoactive substance-induced mood disorder Status: Acute Plan: admitted last week with 2/8 BPP post a dose of methamphetamine and severe social stress. Had otherwise been stable on medical maintenance of her substance use disorder will need to stay until Monday and have evaluation with regarding continued antepartum care vs discharge to unstable environment. baby reassuring at this time. (10) Cholestasis during in third trimester ICD Codes: O26.613 - Liver and biliary tract disorders in , third trimester; K83.1 - Obstruction of bile duct Assessment and Plan continue medication management aids social worker consult consult awaiting bile salts Marika Odell MD Apr 05, 2017 18:54
[2017-04-05] MEDS ORDERED: URSODIOL 300 MG CAP PO SCH (21:00)
[2017-04-07 14:08] LABS: PHENCYCLIDINE URINE NEG (NEG)
[2017-04-07 14:09] LABS: BATH SALTS (MDPV) UR NEG (NEG); ECSTASY (MDMA) UR NEG (NEG); HEROIN (6-ACETYLMORPHINE) UR NEG (NEG); K2 SPICE UR NEG (NEG); OBMETHADONE UR NEG (NEG)
[2017-04-07 14:10] LABS: GABAPENTIN UR NEG (NEG); HYDROMORPHONE U NEG (NEG)
== END 2017-04-05 21:39 | disposition home or self-care (01) | DRG 781 ==
LOC: H2EA 18:26 → OBSVTOIN 19:24
PROVIDERS: ADMIT Obstetrics & Gynecology; ATTEND Obstetrics & Gynecology
DX: O99.713 Diseases of the skin and subcutaneous tissue complicating pregnancy, third trimester (principal); F11.20 Opioid dependence, uncomplicated; O98.413 Viral hepatitis complicating pregnancy, third trimester; L02.419 Cutaneous abscess of limb, unspecified; L03.119 Cellulitis of unspecified part of limb; O99.413 Diseases of the circulatory system complicating pregnancy, third trimester; O99.323 Drug use complicating pregnancy, third trimester; F43.10 Post-traumatic stress disorder, unspecified; O99.343 Other mental disorders complicating pregnancy, third trimester; F32.9 Major depressive disorder, single episode, unspecified; F41.9 Anxiety disorder, unspecified; O99.013 Anemia complicating pregnancy, third trimester; G40.909 Epilepsy, unspecified, not intractable, without status epilepticus; O26.613 Liver and biliary tract disorders in pregnancy, third trimester; L29.9 Pruritus, unspecified; O99.353 Diseases of the nervous system complicating pregnancy, third trimester; Z3A.33 33 weeks gestation of pregnancy; Z72.0 Tobacco use; Z88.5 Allergy status to narcotic agent; Z86.14 Personal history of Methicillin resistant Staphylococcus aureus infection
CPT/HCPCS: 76816; 76819; 76825; 76827; 76937; 80048; 80053; 80076; 80307; 81001; 82239; 84550; 85025; 85027; 87086; 87641; 93325; G0481; J0702

== ENCOUNTER 2017-05-02 22:36 | Inpatient (IN) | payer MEDICAID ==
[~2017-05-02] VITALS: Ht 162.6 cm; Wt 80.0 kg
[2017-05-03] VITALS (48 sets, daily range): BP systolic 112–143; BP diastolic 70–86; PULSE 75–178; RESP 18; TEMP 97.6–97.9
[2017-05-03 00:24] LABS: AUTOMATED NEUTROPHIL # 5.9 TH/MM3 (1.8-7.7); BASOPHIL % 0.3 % (0.0-2.0); EOSINOPHIL # 0.1 TH/MM3 (0-0.4); EOSINOPHIL % 0.6 % (0.0-4.0); HEMATOCRIT 26.2 % (35.0-46.0); HEMO FLAGS DIFF FINAL; LYMPH % 27.3 % (9.0-44.0); LYMPHOCYTE # 2.4 TH/MM3 (1.0-4.8); MEAN CORPUSCULAR HEMOGLOBIN 28.2 PG (27.0-34.0); MEAN CORPUSCULAR HGB CONC 33.6 % (32.0-36.0); NEUT % 66.8 % (16.0-70.0); PLATELET COUNT 210 TH/MM3 (150-450); RED BLOOD COUNT 3.12 MIL/MM3 (4.00-5.30); RED CELL DISTRIBUTION WIDTH 13.8 % (11.6-17.2); WHITE BLOOD COUNT 8.8 TH/MM3 (4.0-11.0)
[2017-05-03 00:29] LABS: BACTERIA, URINE FEW /hpf; BLOOD, URINE TRACE (NEG); COMMENT (UR) CULTURE INDICATED; CULTURE IF INDICATED CULTURE INDICATED; GLUCOSE,URINE NEG (NEG); KETONE, URINE NEG (NEG); MUCUS URINE MOD /lpf (OCC); NITRITE,URINE NEG (NEG); SQUAMOUS EPITHELIAL CELL URINE 27 /hpf (0-5); URINE COLOR YELLOW (YELLW/STRAW)
[2017-05-03] MEDS: LACTATED RINGER'S 1000 ML INJ 1,000 ML IV SCH ×2 (00:30→10:33)
[2017-05-03] MEDS ORDERED: [UNRECOGNIZED DRUG - OTHER] PO ONE (00:30)
[2017-05-03] MEDS ORDERED: MISOPROSTOL PO ONE (00:30)
[2017-05-03] MEDS ORDERED: NS 1000 ML OTHER PRN (00:30)
[2017-05-03 00:44] LABS: ALT (GPT) 125 U/L (10-53); ANION GAP 10 MEQ/L (5-15); AST (GOT) 87 U/L (15-37); BLOOD UREA NITROGEN 11 MG/DL (7-18); CHLORIDE 104 MEQ/L (98-107); GLOMERULAR FILTRATION RATE 113 ML/MIN (>89); POTASSIUM 3.7 MEQ/L (3.5-5.1); SODIUM (NA) 138 MEQ/L (136-145)
[2017-05-03] MEDS ORDERED: CITRIC ACID-SODIUM CITRATE LIQ 30 ML UDC PO SCH (00:45)
[2017-05-03] MEDS ORDERED: ONDANSETRON HCL 4 MG/2 ML VIAL IV PUSH PRN (00:45)
[2017-05-03] MEDS ORDERED: NS 500 ML BOLUS IV PRN (00:45)
[2017-05-03] MEDS ORDERED: LACTATED RINGER'S 1000 ML BOLUS IV PRN (00:45)
[2017-05-03] MEDS ORDERED: ceFAZolin 2 GM PREMIX 50 ML IV ONE (00:45)
[2017-05-03] MEDS ORDERED: LIDOCAINE HCL 1% 50 ML VIAL I-DERMAL PRN (00:45)
[2017-05-03] MEDS ORDERED: NS 1000 ML IV PRN (00:45)
[2017-05-03 00:46] LABS: ALKALINE PHOSPHATASE 139 U/L (45-117); TOTAL BILIRUBIN ADULT 0.3 MG/DL (0.2-1.0)
[2017-05-03] MEDS ORDERED: OXYTOCIN 30 UNITS 500ML PREMIX IV ONE (01:00)
[2017-05-03] MEDS ORDERED: clonazePAM 0.5 MG TAB PO ONE (01:00)
[2017-05-03] MEDS ORDERED: LIDOCAINE HCL 1% 50 ML VIAL INFIL PRN (01:00)
[2017-05-03] MEDS ORDERED: MINERAL OIL 10 ML VIAL TOPICAL PRN (01:00)
[2017-05-03] MEDS ORDERED: BUPRENORPHINE HCL 8 MG SUBLINGUAL TAB SL ONE (01:15)
[2017-05-03] MEDS ORDERED: MISOPROSTOL 25 MCG SUPP VAGINAL ONE ×2 (01:30→10:42)
[2017-05-03] MEDS: LACTATED RINGER'S 1000 ML IV SCH ×3 (01:37→16:45)
[2017-05-03] MEDS ORDERED: ceFAZolin 1,000 MG/NS 100 ML IV SCH ×4 (04:00→05:00)
[2017-05-03] MEDS ORDERED: MISOPROSTOL 25 MCG SUPP VAGINAL PRN (05:30)
[2017-05-03 07:18] LABS: CHLAMYDIA PCR NOT DETECTED (NOT DETECT); NEISSERIA PCR NOT DETECTED (NOT DETECT)
[2017-05-03] MEDS: BUPRENORPHINE HCL 8 MG SUBLINGUAL TAB SL SCH ×2 (08:50→21:00)
[2017-05-03] MEDS: clonazePAM 0.5 MG TAB PO SCH ×3 (08:51→17:49)
[2017-05-03] MEDS ORDERED: PNEUMOCOCCAL POLYVALENT INJ 25 MCG/0.5 ML SYR IM ONE (09:00)
--- NOTE | 2017-05-03 09:21 | HHI.HP ---
HPI Chief Complaint CC: 37 4/7 week IUP1/ LMP. Severe itching, elevated LFTs and bile salts c/ w cholestasis of . Active addiction; severe lymphangitis, grade 3 placenta Date Seen: May 03, 2017 Time Seen: 09:04 Travel History International Travel<30 Days: No Contact w/Intl Traveler<30Days: No Known Affected Area: No History of Present Illness HPI 32 yo swf oo1 at 37 4/7 weeks came to office yesterday after aggressive coaxing from our staff. Misses appointments frequently and seen without appointments due to life style of active addiction, and multiple co morbidities. She has severe itching, and elevated LFTs. In our office her bile salts have been elevated. She has been counseled on cholestatsis of and earlier delivery but did not agree or make the required arrangements due to life issues. She has severe lower extremity edema and lymphangitis. She has a right periorbital infection with swelling around her eye. She has been using methamphetamine and cocaine according to UDS in our office and here. She has been receiving subutex, klonpin and lamictal from or in an effort to stop/ reduce IVDA but we have not been successful. Her BPP yesterday was 6/8 and her BP in the office was 150/100. She was advised at 4 pm to come immediately to [facility] & [facility] but did not arrive until after 11pm. She was started on cervidil. She denies nausea, vomiting, MITCHELL blurred vision but feels generally ill--stomach pains, aggitation, itching and pain in her legs and eyes. Based on all these criteria it is felt the baby is best delivered. Weeks Gestation: 37 Para: 1 : 1 Last Menstrual Period: Aug 14, 2016 Miscarriage: 0 : 0 History Past Medical History Narrative Medical As above Also positive for Hep C 3a History of depression and anxiety disorder hx of seizure disorder--not clear if primary or related to substance use. Obstetric History Obstetric History one term in [place] Adopted out Past Surgical History Narrative Surgical no known surgeries Surgical History: No Previous Surgery Family History Family History: Negative Social History Alcohol Use: Yes Tobacco Use: Yes Substance Abuse: Yes Allergies-Medications (Allergen,Severity, Reaction): Coded Allergies: acetaminophen (Unverified Allergy, Severe, Hives, 03/15/17) VOMITING tramadol (Unverified Allergy, Severe, SEIZURE, 03/15/17) *MDRO Multi-Drug Resistant Organism (Unverified Adverse Reaction, Unknown , 01/19/17) MRSA (wound) 07/2014; MRSA (leg abscess)-09/11/16 Home Meds Active Scripts Lamotrigine (Lamictal) 25 Mg Tab, 50 MG PO DAILY for depression, #30 TAB Prov:Marika Odell MD 03/06/17 Hydroxyzine Pamoate (Hydroxyzine Pamoate) 50 Mg Cap, 50 MG PO Q6H Y for anxiety , #30 CAP Prov:Marika Odell MD 03/06/17 Clonazepam (Klonopin) 1 Mg Tab, 1 MG PO QID for Anxiety and/or Insomnia, #16 TAB Prov:Marika Odell MD 03/06/17 Buprenorphine (Buprenorphine) 8 Mg Subl, 8 MG SL BID for maintance therapy, #8 TAB Prov:Marika Odell MD 03/06/17 Reported Medications Multivit-Min W/Fe-FA ( Vitamins 0.8 mg) 1 Tab Tab 03/02/17 Review of Systems General / Constitutional: Weight Gain HENT: Dental Difficulties, Lightheadedness Cardiovascular: Edema Gastrointestinal: Abdominal Pain, Indigestion, Loss of Appetite Musculoskeletal: Edema, Pain Skin: Rash, Itching, Lesions Neurologic: Weakness, Dizziness, Syncope, Seizures Psychiatric: Anxiety, Depression, Disorder of Thought, Substance Abuse Hematologic/Lymphatic: Lymph Node Enlargement Physical Exam Vital Signs Date Time Temp Pulse Resp B/P (MAP) Pulse Ox O2 Delivery O2 Flow Rate FiO2 05/03/17 06:00 97.8 18 05/03/17 05:55 85 05/03/17 05:50 85 05/03/17 05:45 91 05/03/17 05:45 92 124/71 (88) 05/03/17 01:15 18 05/03/17 01:10 88 05/03/17 01:06 117/78 (91) 05/03/17 01:06 90 05/03/17 01:05 89 05/03/17 01:00 91 05/03/17 00:55 93 05/03/17 00:50 92 10/4/17 00:45 92 05/03/17 00:25 91 05/03/17 00:20 86 05/03/17 00:15 89 Narrative GENERAL: Well-nourished, well-developed patient. SKIN: Warm and dry. HEAD: Normocephalic and atraumatic. EYES: No scleral icterus. No injection or drainage. ENT: No nasal drainage noted. Mucous membranes pink. Airway patent. NECK: Supple, trachea midline. No JVD. CARDIOVASCULAR: Regular rate and rhythm without murmurs, gallops, or rubs. RESPIRATORY: Breath sounds equal bilaterally. No accessory muscle use. BREASTS: Bilateral exam showed no masses , no retractions, no nipple discharge. ABDOMEN/GI: Abdomen soft, non-tender, bowel sounds present, no rebound, no guarding Gravid to [-] weeks size 36 FH long/soft 1-2 EFW 6 pounds pelvis clinically adequate EXTREMITIES: severe edema--tight, with lesions and nodes noted in groin BACK: Nontender without obvious deformity. No CVA tenderness. NEUROLOGICAL: Awake and alert. Motor and sensory grossly within normal limits. Five out of 5 muscle strength in all muscle groups. Normal speech. eye on right swollen near shut with periorbital cellulits. She keeps picking at it. Caprini VTE Risk Assessment Caprini VTE Risk Assessment: Mod/High Risk (score >= 2) Caprini Risk Assessment Model Point Value = 1 Point Value = 2 Point Value = 3 Point Value = 5 Age 41-60 Minor surgery BMI > 25 kg/m2 Swollen legs Varicose veins or History of unexplained or recurrent spontaneous Oral contraceptives or hormone replacement Sepsis (< 1 month) Serious lung disease, including pneumonia (< 1 month) Abnormal pulmonary function Acute myocardial infarction Congestive heart failure (< 1 month) History of inflammatory bowel disease Medical patient at bed rest Age 61-74 Arthroscopic surgery Major open surgery (> 45 min) Laparoscopic surgery (> 45 min) Malignancy Confined to bed (> 72 hours) Immobilizing plaster cast Central venous access Age >= 75 History of VTE Family history of VTE Factor V Leiden Prothrombin 24024L Lupus anticoagulant Anticardiolipin antibodies Elevated serum homocysteine Heparin-induced thrombocytopenia Other congenital or acquired thrombophilia Stroke (< 1 month) Elective arthroplasty Hip, pelvis, or leg fracture Acute spinal cord injury (< 1 month) Prophylaxis Regimen Total Risk Factor Score Risk Level Prophylaxis Regimen 0-1 Low Early ambulation 2 Moderate Order ONE of the following: *Sequential Compression Device (SCD) *Heparin 5000 units SQ BID 3-4 Higher Order ONE of the following medications: *Heparin 5000 units SQ TID *Enoxaparin/Lovenox 40 mg SQ daily (WT < 150 kg, CrCl > 30 mL/min) *Enoxaparin/Lovenox 30 mg SQ daily (WT < 150 kg, CrCl > 10-29 mL/min) *Enoxaparin/Lovenox 30 mg SQ BID (WT < 150 kg, CrCl > 30 mL/min) AND/OR *Sequential Compression Device (SCD) 5 or more Highest Order ONE of the following medications: *Heparin 5000 units SQ TID (Preferred with Epidurals) *Enoxaparin/Lovenox 40 mg SQ daily (WT < 150 kg, CrCl > 30 mL/min) *Enoxaparin/Lovenox 30 mg SQ daily (WT < 150 kg, CrCl > 10-29 mL/min) *Enoxaparin/Lovenox 30 mg SQ BID (WT < 150 kg, CrCl > 30 mL/min) AND *Sequential Compression Device (SCD) Data Data Orders Orders Ob/Psych Drug Screen, Urine (05/03/17 00:10) Comprehensive Metabolic Panel (05/03/17:11) Admit To Inpatient (05/03/17 ) Vital Signs (Adult) .Per protocol (05/03/17 00:11) Activity Oob Ad Helen (05/03/17 00:11) Heart (05/03/17:11) Amnioinfusion (05/03/17 00:11) Urinary Catheter Management .ONCE (05/03/17 00:11) Complete Blood Count With Diff (05/03/17:11) Hold Clot (05/03/17 00:11) Abo/Rh Blood Type (05/03/17:11) Urinalysis - C+S If Indicated (05/03/17:11) Resp Oxygen Non Rebreathe Mask (05/03/17 ) ^ Epidural / Intrathecal Infus (05/03/17 00:11) Admit To Inpatient (05/03/17 ) Activity Oob Ad Helen (05/03/17:17) ^ Labor Induction (10/4/17 00:17) ^ Vaginal Insert (05/03/17 00:17) ^ Vaginal Lavage (05/03/17 00:17) Heart (05/03/17 00:17) Misoprostol (Cytotec) (05/03/17 00:30) Lactated Ringer's 1000 Ml Inj (Lr 1000 M (05/03/17 00:30) Sodium Chlor 0.9% 1000 Ml Inj (Ns 1000 M (05/03/17 00:30) Urine Culture (05/02/17 22:50) Lidocaine 1% Inj (50 Ml) (Xylocaine 1% I (05/03/17 00:45) Citric Acid-Sodium Citrate Liq (Bicitra (05/03/17 00:45) Ondansetron Inj (Zofran Inj) (05/03/17 00:45) Fentanyl Inj (Fentanyl Inj) (05/03/17 01:00) Fentanyl Inj (Fentanyl Inj) (05/03/17 01:00) Cefazolin 2 Gm Premix (Ancef 2 Gm Premix (05/03/17 00:45) Cefazolin Inj (Ancef Inj) (05/03/17 04:00) Oxytocin 30 Units-500ml Premix (Pitocin (05/03/17 01:00) Lidocaine 1% Inj (50 Ml) (Xylocaine 1% I (05/03/17 01:00) Light Mineral Oil (Muri-Lube Oil) (05/03/17 01:00) Lactated Ringer's 1000 Ml Inj (Lr 1000 M (05/03/17 00:45) Lactated Ringer's 1000 Ml Inj (Lr 1000 M (05/03/17 00:45) Sodium Chlorid 0.9% 500 Ml Inj (Ns 500 M (05/03/17 00:45) Sodium Chlor 0.9% 1000 Ml Inj (Ns 1000 M (05/03/17 00:45) Clonazepam (Klonopin) (05/03/17 09:00) Clonazepam (Klonopin) (05/03/17 01:00) Lamotrigine (Lamictal) (05/03/17 09:00) Buprenorphine (Buprenorphine) (05/03/17 01:15) Buprenorphine (Buprenorphine) (05/03/17 09:00) Misoprostol Supp (Cytotec Supp) (05/03/17 01:30) Misoprostol Supp (Cytotec Supp) (05/03/17 05:30) Hydroxyzine Pamoate (Vistaril) (05/03/17 01:45) Gc And Chlamydia Pcr (05/03/17 03:37) Cefazolin Inj (Ancef Inj) (05/03/17 10:00) Pneumococcal-23 Polyvalent Inj (Pneumova (05/03/17 09:00) Diet Regular Basic (05/03/17 Breakfast) Labs Laboratory Tests Test 05/02/17 22:50 05/02/17 23:30 Urine Color YELLOW Urine Turbidity HAZY Urine pH 6.0 Urine Specific [place] 1.031 Urine Protein 30 Urine Glucose (UA) NEG Urine Ketones NEG Urine Occult Blood TRACE Urine Nitrite NEG Urine Bilirubin NEG Urine Urobilinogen 4.0 Urine Leukocyte Esterase LARGE Urine RBC 47 Urine WBC 90 Urine Squamous Epithelial Cells 27 Urine Bacteria FEW Urine Mucus MOD Urine Yeast (Budding) RARE Microscopic Urinalysis Comment CULTURE INDICATED Urine Opiates Screen NEG Urine Barbiturates Screen NEG Urine Amphetamines Screen POS Urine Benzodiazepines Screen POS Urine Cocaine Screen POS Urine Cannabinoids Screen NEG Chlamydia trachomatis DNA (PCR) NOT DETECTED Neisseria gonorrhoeae DNA (PCR) NOT DETECTED White Blood Count 8.8 Red Blood Count 3.12 Hemoglobin 8.8 Hematocrit 26.2 Mean Corpuscular Volume 84.0 Mean Corpuscular Hemoglobin 28.2 Mean Corpuscular Hemoglobin Concent 33.6 Red Cell Distribution Width 13.8 Platelet Count 210 Mean Platelet Volume 9.3 Neutrophils (%) (Auto) 66.8 Lymphocytes (%) (Auto) 27.3 Monocytes (%) (Auto) 5.0 Eosinophils (%) (Auto) 0.6 Basophils (%) (Auto) 0.3 Neutrophils # (Auto) 5.9 Lymphocytes # (Auto) 2.4 Monocytes # (Auto) 0.4 Eosinophils # (Auto) 0.1 Basophils # (Auto) 0.0 CBC Comment DIFF FINAL Differential Comment Blood Urea Nitrogen 11 Creatinine 0.61 Random Glucose 93 Total Protein 6.1 Albumin 1.7 Calcium Level 8.2 Alkaline Phosphatase 139 Aspartate Amino Transf (AST/SGOT) 87 Alanine Aminotransferase (ALT/SGPT) 125 Total Bilirubin 0.3 Sodium Level 138 Potassium Level 3.7 Chloride Level 104 Carbon Dioxide Level 24.0 Anion Gap 10 Estimat Glomerular Filtration Rate 113 Date/Time Source Procedure Growth Status 05/02/17 22:50 Urine Clean Catch Urine Culture Pending Received Assessment/Plan Problem List: (1) Elevated liver enzymes ICD Codes: R74.8 - Elevated liver enzymes Status: Acute (2) Cellulitis ICD Codes: L03.90 - Cellulitis, unspecified Status: Acute (3) IV drug user ICD Codes: F19.90 - IV drug user Status: Chronic (4) Positive urine drug screen ICD Codes: R82.5 - Elevated urine levels of drugs, medicaments and biological substances Status: Acute (5) Anxiety disorder ICD Codes: F41.9 - Anxiety disorder Status: Acute (6) Lymphadenopathy ICD Codes: R59.1 - Generalized enlarged lymph nodes Status: Acute (7) ICD Codes: Z33.1 - state, incidental Status: Acute (8) Tobacco abuse ICD Codes: Z72.0 - Tobacco abuse Status: Chronic (9) Cholestasis during in third trimester ICD Codes: O26.613 - Liver and biliary tract disorders in , third trimester; K83.1 - Obstruction of bile duct Assessment and Plan for induction and delivery address infection has an adoption agency in place needs consult from ID needs psych consult if I order case management, she will be arrested as she has an open warrant. DCF will be notifed at as she is considering abandoning the adoption Discharge Planning will need aggressive case management to address multiple issues but is declining at this time. Marika Odell MD May 03, 2017 09:21
--- NOTE | 2017-05-03 09:29 | PD.LABORPN ---
Subjective Subjective having cramping, severe itching very hungry Objective Vital Signs Vital Signs Date Time Temp Pulse Resp B/P (MAP) Pulse Ox O2 Delivery O2 Flow Rate FiO2 05/03/17 06:00 97.8 18 05/03/17 05:55 85 05/03/17 05:50 85 05/03/17 05:45 91 05/03/17 05:45 92 124/71 (88) Objective firm/long/1 cm not a candidate for AROM yet strip reactive no decels Weeks Gestation: 37 Gest Age Assessed Date: May 03, 2017 Gest Age Assessed Time: 09:28 Pt started active labor?: No Medical induction of labor?: Yes Medical induction start date: May 03, 2017 Medical induction start time: 09:28 Artificial rupture of membrane: No Assessment/Plan Problem List: (1) Elevated liver enzymes ICD Codes: R74.8 - Elevated liver enzymes Status: Acute (2) Cellulitis ICD Codes: L03.90 - Cellulitis, unspecified Status: Acute (3) IV drug user ICD Codes: F19.90 - IV drug user Status: Chronic (4) Positive urine drug screen ICD Codes: R82.5 - Elevated urine levels of drugs, medicaments and biological substances Status: Acute (5) Anxiety disorder ICD Codes: F41.9 - Anxiety disorder Status: Acute (6) Lymphadenopathy ICD Codes: R59.1 - Generalized enlarged lymph nodes Status: Acute (7) ICD Codes: Z33.1 - state, incidental Status: Acute (8) Tobacco abuse ICD Codes: Z72.0 - Tobacco abuse Status: Chronic (9) Cholestasis during in third trimester ICD Codes: O26.613 - Liver and biliary tract disorders in , third trimester; K83.1 - Obstruction of bile duct Assessment and Plan Needs to continue cervidil needs sequentials on emperic antibiotics needs ID consult Marika Odell MD May 03, 2017 09:29
[2017-05-03] MEDS: ceFAZolin 1,000 MG/NS 100 ML IV SCH ×4 (10:33→17:49)
[2017-05-03] MEDS: lamoTRIgine 100 MG TAB PO SCH (10:33)
--- NOTE | 2017-05-03 12:10 | PD.ID.CON ---
History of Present Illness Service ID Consult Requested By Reason for Consult Evaluation and Mment of Right eye albaro-orbital cellulitis. Primary Care Physician No Primary Care Physician Diagnoses: History of Present Illness is a 32 yo CF 37 4/7 weeks . Reportedly patient was coaxed by medical staff to show up for visit. Reported h/o non compliance has missed appointments frequently due to life style of active addiction. She has severe itching, and elevated LFTs with high bilirubin. She has been diagnosed and counseled on cholestasis of and earlier delivery but did not agree or make the required arrangements due to life issues. She has severe lower extremity edema and lymphangitis. She has a right periorbital infection with swelling around her eye. She reports she was using an eye product like eye liner or mascara that lead to the lower eye lid having swollen. She has been using methamphetamine and cocaine according to UDS per records. She has been receiving subutex, klonpin and lamictal by in an effort to stop/ reduce IVDA but reportedly has not been successful. Her BP in the office was 150 /100. She was started on cervidil. She denies nausea, vomiting, MITCHELL blurred vision but feels generally ill--stomach pains, agitation, itching and pain in her legs and eyes. ID consulted for evaluation and mment of right eye periorbital cellulitis. Review of Systems ROS Limitations: Poor Historian Constitutional: DENIES: Diaphoretic episodes, Fatigue, Fever, Weight gain, Weight loss, Chills, Dizziness, Change in appetite, Night Sweats Endocrine: DENIES: Abnorml menstrual pattern, Heat/cold intolerance, Polydipsia , Polyuria, Polyphagia Eyes: DENIES: Blurred vision, Diplopia, Eye inflammation, Eye pain, Vision loss , Photosensitivity, Double Vision Ears, nose, mouth, throat: DENIES: Tinnitus, Hearing loss, Vertigo, Nasal discharge, Oral lesions, Throat pain, Hoarseness, Ear Pain, Running Nose, Epistaxis, Sinus Pain, Toothache, Odynophagia Respiratory: DENIES: Apneas, Cough, Snoring, Wheezing, Hemoptysis, Sputum production, Shortness of breath Cardiovascular: DENIES: Chest pain, Palpitations, Syncope, Dyspnea on Exertion , PND, Lower Extremity Edema, Orthopnea, Claudication Gastrointestinal: DENIES: Abdominal pain, Black stools, Bloody stools, Constipation, Diarrhea, Nausea, Vomiting, Difficulty Swallowing, Anorexia Genitourinary: DENIES: Abnormal vaginal bleeding, Dysmenorrhea, Dyspareunia, Sexual dysfunction, Urinary frequency, Urinary incontinence, Urgency, Hematuria , Dysuria, Nocturia, Vaginal discharge Musculoskeletal: DENIES: Joint pain, Muscle aches, Stiffness, Joint Swelling, Back pain, Neck pain Integumentary: DENIES: Abnormal pigmentation, Pruritus, Rash, Nail changes, Breast masses, Breast skin changes, Nipple discharge Hematologic/lymphatic: DENIES: Bruising, Lymphadenopathy Immunologic/allergic: DENIES: Eczema, Urticaria Neurologic: DENIES: Abnormal gait, Headache, Localized weakness, Paresthesias, Seizures, Speech Problems, Tremor, Poor Balance Psychiatric: DENIES: Anxiety, Confusion, Mood changes, Depression, Hallucinations, Agitation, Suicidal Ideation, Homicidal Ideation, Delusions Past Family Social History Allergies: Coded Allergies: acetaminophen (Unverified Allergy, Severe, Hives, 03/15/17) VOMITING tramadol (Unverified Allergy, Severe, SEIZURE, 03/15/17) *MDRO Multi-Drug Resistant Organism (Unverified Adverse Reaction, Unknown , 01/19/17) MRSA (wound) 07/2014; MRSA (leg abscess)-09/11/16 Past Medical History Also positive for Hep C 3a History of depression and anxiety disorder hx of seizure disorder--not clear if primary or related to substance use. MRSA infections in past. Multiple skin lesions Lymphangitis Pedal edema. Cholestasis of Illiciit drug use. Alcohol Use: Yes Tobacco Use: Yes Substance Abuse: Yes Past Surgical History None Reported Medications I attest I obtained, reviewed or updated the home meds and current meds (name, dose, freq, route of administration for meds) Reported Meds & Active Scripts Active Lamictal (Lamotrigine) 25 Mg Tab 50 Mg PO DAILY Hydroxyzine Pamoate 50 Mg Cap 50 Mg PO Q6H PRN Klonopin (Clonazepam) 1 Mg Tab 1 Mg PO QID Buprenorphine (Buprenorphine HCl) 8 Mg Subl 8 Mg SL BID Reported Vitamins 0.8 mg ( Multivit-Min W/Fe-FA) 1 Tab Tab Active Ordered Medications Current Medications Medications (Trade) Dose Ordered Sig/Chrissy Route Start Time Stop Time Status Last Admin Lactated Ringer's 1,000 ml @ 125 mls/hr Q8H IV 05/03/17 00:30 05/03/17 10:33 Sodium Chloride 1,000 ml @ 0 mls/hr UNSCH PRN OTHER 05/03/17 00:30 (Xylocaine 1% Inj (50 ml)) 0.1 ml UNSCH X1 PRN I-DERMAL 05/03/17 00:45 05/04/17 00:44 (Bicitra Liq) 30 ml RECEIVING DOCK CHECKER PO 05/03/17 00:45 05/06/17 00:44 (Zofran Inj) 4 mg Q6H PRN IV PUSH 05/03/17 00:45 (fentaNYL INJ) 50 mcg Q1H PRN IV PUSH 05/03/17 01:00 (fentaNYL INJ) 100 mcg Q1H PRN IV PUSH 05/03/17 01:00 (Xylocaine 1% Inj (50 ml)) 10 ml UNSCH X1 PRN INFIL 05/03/17 01:00 05/04/17 00:59 (Muri-Lube Oil) 10 ml UNSCH PRN TOPICAL 05/03/17 01:00 Lactated Ringer's 1,000 ml @ 125 mls/hr Q8H IV 05/03/17 00:45 05/03/17 12:51 Lactated Ringer's 1,000 ml @ 3,000 mls/hr BOLUS PRN IV 05/03/17 00:45 Sodium Chloride 500 ml @ 1,000 mls/hr BOLUS PRN IV 05/03/17 00:45 Sodium Chloride 1,000 ml @ 100 mls/hr Q10H PRN IV 05/03/17 00:45 (KlonoPIN) 0.5 mg TID PO 05/03/17 09:00 05/03/17 13:08 (LaMICtal) 100 mg DAILY PO 05/03/17 09:00 05/03/17 10:33 (Buprenorphine) 8 mg BID SL 05/03/17 09:00 05/03/17 08:50 (Vistaril) 50 mg Q4H PRN PO 05/03/17 01:45 05/03/17 01:38 Cefazolin Sodium 1000 mg/Sodium Chloride 100 ml @ 200 mls/hr Q8H IV 05/03/17 10:00 05/03/17 10:33 (Ciloxan 0.3% Opth Oint) 1 applic Q8HR LEFT EYE 05/03/17 14:00 05/03/17 15:48 Oxytocin 500 ml @ 0 mls/hr TITRATE IV 05/03/17 15:30 05/03/17 15:49 Family History reviewed and NC to current ID problems. Social History Alcohol Use: Yes Tobacco Use: Yes Substance Abuse: Yes Physical Exam Vital Signs Vital Signs Date Time Temp Pulse Resp B/P (MAP) Pulse Ox O2 Delivery O2 Flow Rate FiO2 05/03/17 11:42 79 127/83 (98) 05/03/17 11:41 18 05/03/17 11:40 82 05/03/17 11:35 88 05/03/17 06:00 97.8 18 05/03/17 05:55 85 05/03/17 05:50 85 05/03/17 05:45 91 05/03/17 05:45 92 124/71 (88) 05/03/17 01:15 18 05/03/17 01:10 88 05/03/17 01:06 117/78 (91) 05/03/17 01:06 90 05/03/17 01:05 89 05/03/17 01:00 91 05/03/17 00:55 93 05/03/17 00:50 92 05/03/17 00:45 92 05/03/17 00:25 91 05/03/17 00:20 86 05/03/17 00:15 89 Physical Exam GENERAL: This is a well-nourished, well-developed patient, in no apparent distress. SKIN: MUltiple skin lesions. HEAD: Atraumatic. Normocephalic. No temporal or scalp tenderness. EYES: Pupils equal round and reactive. Extraocular motions intact. No scleral icterus. No injection or drainage. Lower eye lid inner canthus with minimal swelling noted. Matted lashes. ENT: Nose without bleeding, purulent drainage or septal hematoma. Throat without erythema, tonsillar hypertrophy or exudate. Uvula midline. Airway patent. NECK: Trachea midline. Supple, nontender, no meningeal signs. CARDIOVASCULAR: Regular rate and rhythm without murmurs, gallops, or rubs. RESPIRATORY: Clear to auscultation. Breath sounds equal bilaterally. No wheezes , rales, or rhonchi. GASTROINTESTINAL: Abdomen soft, non-tender, nondistended. No hepato-splenomegaly , or palpable masses. No guarding. MUSCULOSKELETAL: Extremities without clubbing, cyanosis. Pedal edema pitting upto buttock level. No joint tenderness, effusion, or edema noted. No calf tenderness. Negative Homans sign bilaterally. NEUROLOGICAL: Awake and alert. Cranial nerves II through XII intact. Motor and sensory grossly within normal limits. Five out of 5 muscle strength in all muscle groups. Normal speech. Psych cooperative IV line sites with no e.o infection. Laboratory Laboratory Tests Test 05/02/17 22:50 05/02/17 23:30 Urine Color YELLOW Urine Turbidity HAZY Urine pH 6.0 Urine Specific [place] 1.031 Urine Protein 30 Urine Glucose (UA) NEG Urine Ketones NEG Urine Occult Blood TRACE Urine Nitrite NEG Urine Bilirubin NEG Urine Urobilinogen 4.0 Urine Leukocyte Esterase LARGE Urine RBC 47 Urine WBC 90 Urine Squamous Epithelial Cells 27 Urine Bacteria FEW Urine Mucus MOD Urine Yeast (Budding) RARE Microscopic Urinalysis Comment CULTURE INDICATED Urine Opiates Screen NEG Urine Barbiturates Screen NEG Urine Amphetamines Screen POS Urine Benzodiazepines Screen POS Urine Cocaine Screen POS Urine Cannabinoids Screen NEG Chlamydia trachomatis DNA (PCR) NOT DETECTED Neisseria gonorrhoeae DNA (PCR) NOT DETECTED White Blood Count 8.8 Red Blood Count 3.12 Hemoglobin 8.8 Hematocrit 26.2 Mean Corpuscular Volume 84.0 Mean Corpuscular Hemoglobin 28.2 Mean Corpuscular Hemoglobin Concent 33.6 Red Cell Distribution Width 13.8 Platelet Count 210 Mean Platelet Volume 9.3 Neutrophils (%) (Auto) 66.8 Lymphocytes (%) (Auto) 27.3 Monocytes (%) (Auto) 5.0 Eosinophils (%) (Auto) 0.6 Basophils (%) (Auto) 0.3 Neutrophils # (Auto) 5.9 Lymphocytes # (Auto) 2.4 Monocytes # (Auto) 0.4 Eosinophils # (Auto) 0.1 Basophils # (Auto) 0.0 CBC Comment DIFF FINAL Differential Comment Blood Urea Nitrogen 11 Creatinine 0.61 Random Glucose 93 Total Protein 6.1 Albumin 1.7 Calcium Level 8.2 Alkaline Phosphatase 139 Aspartate Amino Transf (AST/SGOT) 87 Alanine Aminotransferase (ALT/SGPT) 125 Total Bilirubin 0.3 Sodium Level 138 Potassium Level 3.7 Chloride Level 104 Carbon Dioxide Level 24.0 Anion Gap 10 Estimat Glomerular Filtration Rate 113 Date/Time Source Procedure Growth Status 05/02/17 22:50 Urine Clean Catch Urine Culture Pending Received Result Diagram: 05/02/17 2330 05/02/17 233 Assessment and Plan Assessment and Plan Periorbital cellulitis Multiple skin lesions staph impetigo related and itching due to cholestasis. Conjunctivitis Illicit drug use 37 plus weeks pregnany Cholestasis Recs Continue Cefazolin for another day or so. Cipro gtt to both eyes. Follow clinically. Caren Gagnon MD May 03, 2017 12:10
[2017-05-03] MEDS ORDERED: OXYTOCIN 30 UNITS/NS 500ML PREMIX IV SCH (15:30)
[2017-05-03] MEDS: CIPROFLOXACIN 0.3% OPTH OINT 3.5 GM TUBO LEFT EYE SCH (15:48)
[2017-05-04] VITALS (64 sets, daily range): BP systolic 90–152; BP diastolic 64–104; PULSE 49–172; RESP 17–20; TEMP 97.2–99
[2017-05-04] MEDS: ceFAZolin 1,000 MG/NS 100 ML IV SCH ×4 (01:00→10:00)
[2017-05-04] MEDS: CIPROFLOXACIN 0.3% OPTH OINT 3.5 GM TUBO LEFT EYE SCH ×3 (06:00→14:00)
[2017-05-04] MEDS: LACTATED RINGER'S 1000 ML INJ 1,000 ML IV SCH (08:24)
[2017-05-04] MEDS: LACTATED RINGER'S 1000 ML IV SCH (08:45)
[2017-05-04] MEDS: clonazePAM 0.5 MG TAB PO SCH ×3 (09:05→17:04)
[2017-05-04] MEDS: BUPRENORPHINE HCL 8 MG SUBLINGUAL TAB SL SCH (09:05)
[2017-05-04] MEDS: lamoTRIgine 100 MG TAB PO SCH (09:05)
--- NOTE | 2017-05-04 09:20 | PD.LABORPN ---
Subjective Subjective C/O severe itching; painful contractions and swelling aggitated and frustrated Objective Vital Signs Vital Signs Date Time Temp Pulse Resp B/P (MAP) Pulse Ox O2 Delivery O2 Flow Rate FiO2 05/04/17 08:55 95 05/04/17 08:52 88 130/91 (104) 05/04/17 08:50 82 05/04/17 08:45 85 05/04/17 07:42 98.4 20 05/04/17 07:40 91 05/04/17 07:39 91 112/66 (81) 05/04/17 07:35 91 05/04/17 07:30 89 05/04/17 05:10 18 Objective 1-2/805/-2 AROM clear fluid Strip category 1 UC's appear every 2-3 on external monitor but difficult to monitor due to continued movement in bed has sequentials on Weeks Gestation: 37 Gest Age Assessed Date: May 03, 2017 Gest Age Assessed Time: 09:28 Pt started active labor?: No Medical induction of labor?: Yes Medical induction start date: May 03, 2017 Medical induction start time: 09:28 Artificial rupture of membrane: Yes Artificial ROM date: May 04, 2017 Artifical ROM time: 09:18 Assessment/Plan Problem List: (1) Elevated liver enzymes ICD Codes: R74.8 - Elevated liver enzymes Status: Acute (2) Cellulitis ICD Codes: L03.90 - Cellulitis, unspecified Status: Acute (3) IV drug user ICD Codes: F19.90 - IV drug user Status: Chronic (4) Positive urine drug screen ICD Codes: R82.5 - Elevated urine levels of drugs, medicaments and biological substances Status: Acute (5) Anxiety disorder ICD Codes: F41.9 - Anxiety disorder Status: Acute (6) Lymphadenopathy ICD Codes: R59.1 - Generalized enlarged lymph nodes Status: Acute (7) ICD Codes: Z33.1 - state, incidental Status: Acute (8) Tobacco abuse ICD Codes: Z72.0 - Tobacco abuse Status: Chronic (9) Cholestasis during in third trimester ICD Codes: O26.613 - Liver and biliary tract disorders in , third trimester; K83.1 - Obstruction of bile duct Assessment and Plan 37 and 5/7 week IUP multip hepc/choestasis of ZAMZAM - polysubstance induction ongoing anticipate epidural, benadryl and vistaril for itching Marika Odell MD May 04, 2017 09:20
[2017-05-04] MEDS ORDERED: fentaNYL 2MCG-BUPIV 0.125% INJ 100 ML ONE (09:37)
[2017-05-04] MEDS ORDERED: ePHEDrine/NS 25 MG/5 ML SYR ONE (09:37)
[2017-05-04] MEDS ORDERED: DO NOT ADMINISTER ANTICOAGULANTS PRN (13:30)
[2017-05-04] MEDS ORDERED: fentaNYL 2MCG-BUPIV 0.125% 100 ML EPIDURAL SCH (13:30)
[2017-05-04] MEDS ORDERED: NO SYSTEM NARCOTICS PRN (13:30)
[2017-05-04] MEDS ORDERED: ePHEDrine/NS 25 MG/5 ML SYR IV PUSH PRN (13:30)
--- NOTE | 2017-05-04 14:40 | HHI.IDPN ---
Subjective Subjective Remarks Overnight events reviewed. No fever Skin lesions dried up. Right eye lower lid with less erythema and swelling. Antibiotics Ancef IV Cipro drops/ Lines Line sites with no e.o infection Past Medical History reviewed Allergies: Coded Allergies: acetaminophen (Unverified Allergy, Severe, Hives, 03/15/17) VOMITING tramadol (Unverified Allergy, Severe, SEIZURE, 03/15/17) *MDRO Multi-Drug Resistant Organism (Unverified Adverse Reaction, Unknown , 01/19/17) MRSA (wound) 07/2014; MRSA (leg abscess)-09/11/16 Objective . Vital Signs Date Time Temp Pulse Resp B/P (MAP) Pulse Ox O2 Delivery O2 Flow Rate FiO2 05/04/17 13:45 84 138/84 (102) 05/04/17 13:30 92 132/86 (101) 05/04/17 13:15 84 138/89 (105) 05/04/17 13:00 81 133/87 (102) 05/04/17 12:46 87 116/99 (105) 05/04/17 12:45 97.9 05/04/17 12:35 87 05/04/17 12:30 86 05/04/17 12:30 87 122/79 (93) 05/04/17 12:25 85 05/04/17 12:20 86 05/04/17 12:15 87 127/84 (98) 05/04/17 12:15 83 05/04/17 12:14 88 126/81 (96) 05/04/17 12:10 86 05/04/17 12:05 87 05/04/17 12:00 81 05/04/17 11:58 17 05/04/17 11:55 84 05/04/17 11:50 172 05/04/17 11:15 17 05/04/17 11:10 89 05/04/17 11:10 85 05/04/17 11:05 85 05/04/17 11:05 84 05/04/17 11:00 86 05/04/17 11:00 86 05/04/17 10:40 82 05/04/17 10:40 83 05/04/17 10:39 81 123/70 (87) 05/04/17 10:35 90 05/04/17 10:35 88 05/04/17 10:30 81 05/04/17 10:30 83 05/04/17 10:25 86 05/04/17 10:25 85 05/04/17 10:20 85 05/04/17 10:20 84 05/04/17 10:15 84 05/04/17 10:15 18 05/04/17 10:15 98.5 05/04/17 10:15 83 05/04/17 10:10 89 05/04/17 10:10 87 05/04/17 10:06 88 135/72 (93) 05/04/17 10:05 87 05/04/17 10:00 86 05/04/17 10:00 87 05/04/17 09:59 88 135/94 (108) 05/04/17 09:55 89 05/04/17 09:55 90 05/04/17 09:50 105 05/04/17 09:45 89 05/04/17 09:40 49 05/04/17 09:15 94 05/04/17 08:55 95 05/04/17 08:52 88 130/91 (104) 05/04/17 08:50 82 05/04/17 08:45 85 05/04/17 07:42 98.4 20 05/04/17 07:40 91 05/04/17 07:39 91 112/66 (81) 05/04/17 07:35 91 05/04/17 07:30 89 05/04/17 05:10 18 05/03/17 21:55 86 05/03/17 21:50 89 05/03/17 21:50 91 143/86 (105) 05/03/17 21:45 88 05/03/17 20:50 98 05/03/17 20:45 79 05/03/17 19:30 97.6 18 05/03/17 19:25 95 05/03/17 19:23 83 123/86 (98) 05/03/17 19:20 178 05/03/17 19:15 99 05/03/17 17:10 18 05/03/17 17:09 79 115/70 (85) 05/03/17 17:05 80 05/03/17 17:00 79 05/03/17 16:40 82 05/03/17 16:39 84 116/83 (94) 05/03/17 16:35 77 05/03/17 16:30 76 05/03/17 15:55 75 05/03/17 15:48 80 122/84 (97) 05/03/17 15:45 84 . Laboratory Tests Test 05/02/17 23:30 White Blood Count 8.8 TH/MM3 Red Blood Count 3.12 MIL/MM3 Hemoglobin 8.8 GM/DL Hematocrit 26.2 % Mean Corpuscular Volume 84.0 FL Mean Corpuscular Hemoglobin 28.2 PG Mean Corpuscular Hemoglobin Concent 33.6 % Red Cell Distribution Width 13.8 % Platelet Count 210 TH/MM3 Mean Platelet Volume 9.3 FL Neutrophils (%) (Auto) 66.8 % Lymphocytes (%) (Auto) 27.3 % Monocytes (%) (Auto) 5.0 % Eosinophils (%) (Auto) 0.6 % Basophils (%) (Auto) 0.3 % Neutrophils # (Auto) 5.9 TH/MM3 Lymphocytes # (Auto) 2.4 TH/MM3 Monocytes # (Auto) 0.4 TH/MM3 Eosinophils # (Auto) 0.1 TH/MM3 Basophils # (Auto) 0.0 TH/MM3 CBC Comment DIFF FINAL Differential Comment Laboratory Tests Test 05/02/17 23:30 Blood Urea Nitrogen 11 MG/DL Creatinine 0.61 MG/DL Random Glucose 93 MG/DL Total Protein 6.1 GM/DL Albumin 1.7 GM/DL Calcium Level 8.2 MG/DL Alkaline Phosphatase 139 U/L Aspartate Amino Transf (AST/SGOT) 87 U/L Alanine Aminotransferase (ALT/SGPT) 125 U/L Total Bilirubin 0.3 MG/DL Sodium Level 138 MEQ/L Potassium Level 3.7 MEQ/L Chloride Level 104 MEQ/L Carbon Dioxide Level 24.0 MEQ/L Anion Gap 10 MEQ/L Estimat Glomerular Filtration Rate 113 ML/MIN Microbiology Date/Time Source Procedure Growth Status 05/02/17 22:50 Urine Clean Catch Urine Culture - Final 50-100,000 CFU/ML MIXED GRAM POSITIVE... Complete Physical Exam GENERAL: This is a well-nourished, well-developed patient, in no apparent distress. SKIN: MUltiple skin lesions. HEAD: Atraumatic. Normocephalic. No temporal or scalp tenderness. EYES: Pupils equal round and reactive. Extraocular motions intact. No scleral icterus. No injection or drainage. Lower eye lid inner canthus with minimal swelling noted. Matted lashes. ENT: Nose without bleeding, purulent drainage or septal hematoma. Throat without erythema, tonsillar hypertrophy or exudate. Uvula midline. Airway patent. NECK: Trachea midline. Supple, nontender, no meningeal signs. CARDIOVASCULAR: Regular rate and rhythm without murmurs, gallops, or rubs. RESPIRATORY: Clear to auscultation. Breath sounds equal bilaterally. No wheezes , rales, or rhonchi. GASTROINTESTINAL: Abdomen soft, non-tender, nondistended. No hepato-splenomegaly , or palpable masses. No guarding. MUSCULOSKELETAL: Extremities without clubbing, cyanosis. Pedal edema pitting upto buttock level. No joint tenderness, effusion, or edema noted. No calf tenderness. Negative Homans sign bilaterally. NEUROLOGICAL: Awake and alert. Cranial nerves II through XII intact. Motor and sensory grossly within normal limits. Five out of 5 muscle strength in all muscle groups. Normal speech. Psych cooperative IV line sites with no e.o infection. Assessment & Plan Remarks Periorbital cellulitis Multiple skin lesions staph impetigo related and itching due to cholestasis. Conjunctivitis Illicit drug use 37 plus weeks pregnany Cholestasis Recs Continue Cefazolin for another day or so. Cipro gtt to both eyes. Follow clinically. Caren Gagnon MD May 04, 2017 14:40
[2017-05-04] MEDS ORDERED: LIDOCAINE HCL 1% 50 ML VIAL ONE (14:43)
[2017-05-04] MEDS ORDERED: OXYTOCIN 30 UNITS-500ML PREMIX 500 ML IV SCH (15:00)
[2017-05-04] MEDS ORDERED: WITCH HAZEL 50%/GLYCERIN 12.5% 40 PAD JAR TOPICAL PRN (15:00)
[2017-05-04] MEDS ORDERED: ZOLPIDEM TARTRATE 5 MG TAB PO PRN (15:00)
[2017-05-04] MEDS ORDERED: DOCUSATE SODIUM 50 MG/SENNA 8.6 MG TAB PO PRN (15:00)
[2017-05-04] MEDS ORDERED: ALUMINUM/MAGNESIUM/SIMETH 30 ML CUP PO PRN (15:00)
[2017-05-04] MEDS ORDERED: IBUPROFEN 600 MG TAB PO PRN (15:00)
[2017-05-04] MEDS ORDERED: ACETAMINOPHEN 325 MG TAB PO PRN (15:00)
[2017-05-04] MEDS ORDERED: BENZOCAINE 20% TOPICAL SPRAY 60 ML CAN TOPICAL PRN (15:00)
[2017-05-04] MEDS ORDERED: ONDANSETRON ODT 4 MG TAB PO PRN (15:00)
[2017-05-04] MEDS ORDERED: SODIUM CHLORIDE 0.9% FLUSH 10 ML FLUSH IV FLUSH PRN (15:00)
--- NOTE | 2017-05-04 15:03 | PD.OB.DELI ---
Weeks gestation: 37 Gest age assessed date: May 03, 2017 Gest age assessed time: 09:28 Pt started active labor?: No Active labor start date: May 04, 2017 Active labor start time: 08:00 Medical induction of labor?: Yes Medical induction start date: May 03, 2017 Medical induction start time: 09:28 Artificial rupture of membrane: Yes Artificial ROM date: May 04, 2017 Artifical ROM time: 09:18 Anesthesia: Epidural Episiotomy: None Vaginal Delivery: Normal, Vacuum Presentation: Occiput anterior Nuchal Cord: None Delayed cord clamping (45 sec): Yes Infant: Male Delivery date: May 04, 2017 Delivery time: 15:02 Placenta: Spontaneous delivery Laceration: No lacerations Estimated blood loss: 350 Marika Odell MD May 04, 2017 15:03
[2017-05-04 15:11] LABS: BLOOD GAS BASE EXCESS -5.5 mmol/L (-2-2); BLOOD GAS O2 HGB SATURATION 46 % (90-100); CORD BLOOD GAS HCO3 21 mmol/L (21-29); CORD BLOOD GAS PCO2 57 mmHG (34-78); CORD BLOOD GAS PO2 26 mmHG (3.0-40.0); DRAW SITE CORD BLOOD; STAT NO
[2017-05-04] MEDS ORDERED: DIPHTH/TETANUS/ACEL PERTUSSIS (BOOSTER) 0.5 ML VIAL/PFS IM ONE (16:00)
[2017-05-04] MEDS ORDERED: MEASLES, MUMPS, RUBELLA VACCINE 0.5 ML VIAL SQ ONE (16:00)
[2017-05-04] MEDS ORDERED: methylPREDNISolone SOD SUCC 125 MG/2 ML VIAL IV ONE (16:45)
[2017-05-04] MEDS ORDERED: URSODIOL 300 MG CAP PO SCH (21:00)
[2017-05-04] MEDS ORDERED: SODIUM CHLORIDE 0.9% FLUSH 10 ML FLUSH IV FLUSH SCH (21:00)
[2017-05-04] MEDS ORDERED: BUPRENORPHINE HCL 8 MG SUBLINGUAL TAB SL SCH (21:00)
[2017-05-04] MEDS ORDERED: clonazePAM 0.5 MG TAB PO SCH (22:00)
[2017-05-05] VITALS: BP 138/82; PULSE 82; RESP 18; TEMP 97.9
[2017-05-05 08:00] VITALS: BP 118/66; PULSE 80; RESP 18; TEMP 97
--- NOTE | 2017-05-05 08:33 | HHI.OB ---
Subjective Post Day: 1 Remarks Possible cocaine seen in room with patient this morning by nursing staff. When Nurse shopping centre manager went to check on patient, nothing was seen. She is emotional about adoption, still going thru with it. Ok to go home today after that is complete Objective Vitals/I&O Vital Signs Date Time Temp Pulse Resp B/P (MAP) Pulse Ox O2 Delivery O2 Flow Rate FiO2 05/05/17 08:00 97.0 80 18 05/05/17 08:00 118/66 (83) 05/05/17 00:00 82 18 138/82 (100) 05/05/17 00:00 97.9 05/04/17 20:00 98.4 77 18 05/04/17 20:00 148/86 (106) 05/04/17 17:50 99.0 83 20 05/04/17 17:50 86 05/04/17 17:50 152/93 (112) 05/04/17 16:45 92 141/84 (103) 05/04/17 16:31 95 143/88 (106) 05/04/17 16:15 84 146/82 (103) 05/04/17 16:00 90 143/92 (109) 05/04/17 15:46 81 132/74 (93) 05/04/17 15:30 90 142/70 (94) 05/04/17 15:16 85 136/85 (102) 05/04/17 15:01 94 90/64 (73) 05/04/17 14:45 128/104 (112) 05/04/17 14:39 97.2 05/04/17 14:30 83 125/75 (92) 05/04/17 14:16 95 122/76 (91) 05/04/17 14:00 92 114/92 (99) 05/04/17 13:45 84 138/84 (102) 05/04/17 13:30 92 132/86 (101) 05/04/17 13:15 84 138/89 (105) 05/04/17 13:00 81 133/87 (102) 05/04/17 12:46 87 116/99 (105) 05/04/17 12:45 97.9 05/04/17 12:35 87 05/04/17 12:30 86 05/04/17 12:30 87 122/79 (93) 05/04/17 12:25 85 05/04/17 12:20 86 05/04/17 12:15 87 127/84 (98) 05/04/17 12:15 83 05/04/17 12:14 88 126/81 (96) 05/04/17 12:10 86 05/04/17 12:05 87 05/04/17 12:00 81 05/04/17 11:58 17 05/04/17 11:55 84 05/04/17 11:50 172 05/04/17 11:15 17 05/04/17 11:10 89 05/04/17 11:10 85 05/04/17 11:05 85 05/04/17 11:05 84 05/04/17 11:00 86 05/04/17 11:00 86 05/04/17 10:40 82 05/04/17 10:40 83 05/04/17 10:39 81 123/70 (87) 05/04/17 10:35 90 05/04/17 10:35 88 05/04/17 10:30 81 05/04/17 10:30 83 05/04/17 10:25 86 05/04/17 10:25 85 05/04/17 10:20 85 05/04/17 10:20 84 05/04/17 10:15 84 05/04/17 10:15 18 05/04/17 10:15 98.5 05/04/17 10:15 83 05/04/17 10:10 89 05/04/17 10:10 87 05/04/17 10:06 88 135/72 (93) 05/04/17 10:05 87 05/04/17 10:00 86 05/04/17 10:00 87 05/04/17 09:59 88 135/94 (108) 05/04/17 09:55 89 05/04/17 09:55 90 05/04/17 09:50 105 05/04/17 09:45 89 05/04/17 09:40 49 05/04/17 09:15 94 05/04/17 08:55 95 05/04/17 08:52 88 130/91 (104) 05/04/17 08:50 82 05/04/17 08:45 85 Objective Remarks GENERAL: min erythema right eye, greatly improved per pt CARDIOVASCULAR: Regular rate and rhythm without murmurs, gallops, or rubs. RESPIRATORY: Breath sounds equal bilaterally. No accessory muscle use. ABDOMEN/GI: Abdomen soft, non-tender. Fundus: Firm, non-tender at umbilicus. GENITOURINARY: Light to moderate bleeding. EXTREMITIES: excoriations, lymphangitis Medications and IVs Current Medications Medications (Trade) Dose Ordered Sig/Chrissy Route Start Time Stop Time Status Last Admin Lactated Ringer's 1,000 ml @ 125 mls/hr Q8H IV 05/03/17 00:30 05/04/17 08:24 Sodium Chloride 1,000 ml @ 0 mls/hr UNSCH PRN OTHER 05/03/17 00:30 (Bicitra Liq) 30 ml OUTSIDE SALES ACCOUNT EXECUTIVE PO 05/03/17 00:45 05/06/17 00:44 (Zofran Inj) 4 mg Q6H PRN IV PUSH 05/03/17 00:45 (fentaNYL INJ) 50 mcg Q1H PRN IV PUSH 05/03/17 01:00 (fentaNYL INJ) 100 mcg Q1H PRN IV PUSH 05/03/17 01:00 05/04/17 08:14 (Muri-Lube Oil) 10 ml UNSCH PRN TOPICAL 05/03/17 01:00 Lactated Ringer's 1,000 ml @ 125 mls/hr Q8H IV 05/03/17 00:45 05/03/17 12:51 Lactated Ringer's 1,000 ml @ 3,000 mls/hr BOLUS PRN IV 05/03/17 00:45 Sodium Chloride 500 ml @ 1,000 mls/hr BOLUS PRN IV 05/03/17 00:45 Sodium Chloride 1,000 ml @ 100 mls/hr Q10H PRN IV 05/03/17 00:45 (KlonoPIN) 0.5 mg TID PO 05/03/17 09:00 05/04/17 17:04 (LaMICtal) 100 mg DAILY PO 05/03/17 09:00 05/04/17 09:05 (Buprenorphine) 8 mg BID SL 05/03/17 09:00 05/04/17 09:05 (Vistaril) 50 mg Q4H PRN PO 05/03/17 01:45 05/03/17 01:38 Cefazolin Sodium 1000 mg/Sodium Chloride 100 ml @ 200 mls/hr Q8H IV 05/03/17 10:00 05/04/17 10:00 (Ciloxan 0.3% Opth Oint) 1 applic Q8HR LEFT EYE 05/03/17 14:00 05/04/17 14:00 Oxytocin 500 ml @ 0 mls/hr TITRATE IV 05/03/17 15:30 05/03/17 15:49 (Actigall) 300 mg Q12HR PO 05/04/17 21:00 Miscellaneous Information No systemic narcotics to be given except... UNSCH PRN .XX 05/04/17 13:30 05/05/17 13:29 Miscellaneous Information DO NOT ADMINISTER ANY ANTICOAGUL... UNSCH PRN .XX 05/04/17 13:30 05/05/17 13:29 Fentanyl/ Bupivacaine HCl 100 ml @ 0 mls/hr TITRATE EPIDURAL 05/04/17 13:30 (ePHEDrine/NS 25 MG/5 ML SYR) 10 mg UNSCH PRN IV PUSH 05/04/17 13:30 05/05/17 13:29 (NS Flush) 2 ml BID IV FLUSH 05/04/17 21:00 (NS Flush) 2 ml UNSCH PRN IV FLUSH 05/04/17 15:00 (Tylenol) 650 mg Q4H PRN PO 05/04/17 15:00 UNV (Motrin) 600 mg Q6H PRN PO 05/04/17 15:00 (Americaine 20% Top Spr) 1 spray Q4H PRN TOPICAL 05/04/17 15:00 (Tucks Pads) 1 applic QID PRN TOPICAL 05/04/17 15:00 (Nicol-Colace) 2 tab Q12HR PRN PO 05/04/17 15:00 (Ambien) 5 mg HS PRN PO 05/04/17 15:00 (Mag-Al Plus Susp Liq) 15 ml Q8H PRN PO 05/04/17 15:00 (Zofran Odt) 4 mg Q6H PRN PO 05/04/17 15:00 (Buprenorphine) 8 mg BID SL 05/04/17 21:00 (LaMICtal) 100 mg DAILY PO 05/05/17 09:00 (Ecotrin Ec) 81 mg DAILY PO 05/05/17 09:00 Assessment/Plan Problem List: (1) Elevated liver enzymes ICD Codes: R74.8 - Elevated liver enzymes Status: Acute (2) Cellulitis ICD Codes: L03.90 - Cellulitis, unspecified Status: Acute (3) IV drug user ICD Codes: F19.90 - IV drug user Status: Chronic (4) Positive urine drug screen ICD Codes: R82.5 - Elevated urine levels of drugs, medicaments and biological substances Status: Acute (5) Anxiety disorder ICD Codes: F41.9 - Anxiety disorder Status: Acute (6) Lymphadenopathy ICD Codes: R59.1 - Generalized enlarged lymph nodes Status: Acute (7) Tobacco abuse ICD Codes: Z72.0 - Tobacco abuse Status: Chronic (8) Cholestasis during in third trimester ICD Codes: O26.613 - Liver and biliary tract disorders in , third trimester; K83.1 - Obstruction of bile duct Assessment and Plan s/p VAVD on abx for preiorbital cellulitis; did not get IV abx vernight, IV d/c. Will await ID recommendations for discharge clearance/abx recommendations. has an adoption agency in place, will need to sign documents today. multisubstance abuse- likely use in hospital Discharge Planning will need aggressive case management to address multiple issues but is declining at this time. Ileana Stephens MD May 05, 2017 08:33
[2017-05-05] MEDS ORDERED: lamoTRIgine 100 MG TAB PO SCH (09:00)
[2017-05-05] MEDS ORDERED: ASPIRIN EC 81 MG TABEC PO SCH (09:00)
[2017-05-05] MEDS: CIPROFLOXACIN 0.3% OPTH OINT 3.5 GM TUBO LEFT EYE SCH (09:07)
[2017-05-05] MEDS: clonazePAM 0.5 MG TAB PO SCH ×2 (09:07→13:44)
[2017-05-05] MEDS: BUPRENORPHINE HCL 8 MG SUBLINGUAL TAB SL SCH (09:08)
[2017-05-05] MEDS: lamoTRIgine 100 MG TAB PO SCH (09:08)
--- NOTE | 2017-05-05 11:48 | HHI.PR ---
Addendum to Inpatient Note Addendum Reason: Additional Documentation Additional Information Recd call from RN Patient has delivered baby and Mom/baby doing well and plan for discharge home DC Ancef IV Continue Cipro eye gtt to finish ointment or bottle. Will sign off please call back if any change in clinical condition or questions. Caren Gagnon MD May 05, 2017 11:48
[2017-05-10 07:51] LABS: BATH SALTS (MDPV) UR NEG (NEG); ECSTASY (MDMA) UR NEG (NEG); GABAPENTIN UR NEG (NEG); HEROIN (6-ACETYLMORPHINE) UR NEG (NEG); HYDROMORPHONE U NEG (NEG); K2 SPICE UR NEG (NEG); OBMETHADONE UR NEG (NEG); PHENCYCLIDINE URINE NEG (NEG)
== END 2017-05-05 14:27 | disposition home or self-care (01) | DRG 774 ==
LOC: H2EA 22:36 → H1EA 05-04 17:18
PROVIDERS: ADMIT Obstetrics & Gynecology; ATTEND Obstetrics & Gynecology
PROC: 3E0P3VZ Introduction of Hormone into Female Reproductive, Percutaneous Approach (ICD-10-PCS; 2017-05-02)
PROC: 10D07Z6 Extraction of Products of Conception, Vacuum, Via Natural or Artificial Opening (ICD-10-PCS; principal; 2017-05-04)
PROC: 3E0R3BZ Introduction of Anesthetic Agent into Spinal Canal, Percutaneous Approach (ICD-10-PCS; 2017-05-04)
PROC: 00HU33Z Insertion of Infusion Device into Spinal Canal, Percutaneous Approach (ICD-10-PCS; 2017-05-04)
DX: O26.62 Liver and biliary tract disorders in childbirth (principal); O98.42 Viral hepatitis complicating childbirth; K83.1 Obstruction of bile duct; O99.42 Diseases of the circulatory system complicating childbirth; O99.324 Drug use complicating childbirth; O99.354 Diseases of the nervous system complicating childbirth; L03.213 Periorbital cellulitis; Z37.0 Single live birth; G40.909 Epilepsy, unspecified, not intractable, without status epilepticus; Z3A.37 37 weeks gestation of pregnancy; O99.89 Other specified diseases and conditions complicating pregnancy, childbirth and the puerperium; B19.20 Unspecified viral hepatitis C without hepatic coma; O99.344 Other mental disorders complicating childbirth; F41.8 Other specified anxiety disorders; O99.72 Diseases of the skin and subcutaneous tissue complicating childbirth; L01.00 Impetigo, unspecified; O12.04 Gestational edema, complicating childbirth; F19.90 Other psychoactive substance use, unspecified, uncomplicated; O99.334 Smoking (tobacco) complicating childbirth
CPT/HCPCS: 59025; 80053; 80307; 81001; 82805; 85025; 86900; 86901; 87086; 87491; 87591; 88307; G0481; J0690; J2590; J2930; J3010; J7120

== ENCOUNTER 2017-07-16 21:32 | Emergency (ER) | payer MEDICAID ==
[~2017-07-16] VITALS: Ht 162.6 cm; Wt 65.0 kg
[2017-07-16 21:33] VITALS: BP 148/82; PULSE 112; RESP 18; TEMP 98.6; O2SAT 97
[2017-07-16] MEDS ORDERED: LIDOCAINE HCL 1% 50 ML VIAL INFIL ONE (22:00)
[2017-07-16] MEDS ORDERED: CEPHALEXIN MONOHYDRATE 500 MG CAP PO ONE (22:00)
[2017-07-16] MEDS ORDERED: SULFAMETHOXAZOLE-TRIMETHOPRIM DS 800-160 MG TAB PO ONE (22:00)
[2017-07-16] MEDS ORDERED: MUPI2OIN TOPICAL (22:07)
[2017-07-16] MEDS ORDERED: BACT800T5 PO (22:07)
[2017-07-16] MEDS ORDERED: CEPH-460 PO (22:07)
--- NOTE | 2017-07-16 22:07 | PD ---
HPI Chief Complaint: Pain: Acute or Chronic Time Seen by Provider: 21:44 Travel History International Travel<30 days: No Contact w/Intl Traveler<30days: No Traveled to known affect area: No History of Present Illness HPI 32-year-old female presents to the emergency department for 2 separate issues. Patient states she had a partial just below her nose since Monday, 2 days ago. She states she has tried to pop it and now has some swelling and erythema surrounding it. Patient states she's had some mild drainage from the area. She reports subjective fevers. Patient states she was just released from custodial on . She reports history of IV drug use, but is adamant she has not used any illicit drugs since November of this year. Patient states she has left breast pain and is concerned that she may have breast cancer due to family history of it. She states that she has tenderness and feels a lump to the left lower breast. Patient denies any chance of reporting that she has an I IUD. Moderate severity. No radiation of pain. No other complaints. No exacerbating or alleviating factors. PFSH Past Medical History Arthritis: No Asthma: No Autoimmune Disease: No Anxiety: Yes Depression: Yes Heart Rhythm Problems: No Cancer: No Cardiovascular Problems: Yes (ENDOCARDITIS ) High Cholesterol: No Chest Pain: Yes Congestive Heart Failure: No COPD: No Cerebrovascular Accident: No Diminished Hearing: No Endocrine: No GERD: No Genitourinary: No Hiatal Hernia: No Immune Disorder: No Musculoskeletal: No Neurologic: Yes Psychiatric: Yes Reproductive: No Respiratory: No Immunizations Current: Yes Migraines: No Seizures: Yes Sleep Apnea: No Ulcer: No ?: Not : 1 Para: 1 Past Surgical History Abdominal Surgery: Yes AICD: No Appendectomy: Yes (2006) Arteriovenous Shunt: No Cardiac Surgery: No Ear Surgery: No Endocrine Surgery: No Eye Surgery: No Genitourinary Surgery: No Gynecologic Surgery: No Insulin Pump: No Joint Replacement: No Oral Surgery: No Pacemaker: No Thoracic Surgery: No Other Surgery: Yes Social History Alcohol Use: No (HX) Tobacco Use: Yes (3-4 CIGS DAILY) Substance Use: Yes (suboxone, last used illicit drugs on january 17) Allergies-Medications (Allergen,Severity, Reaction): Coded Allergies: acetaminophen (Unverified Allergy, Severe, Hives, 07/16/17) VOMITING tramadol (Unverified Allergy, Severe, SEIZURE, 07/16/17) *MDRO Multi-Drug Resistant Organism (Unverified Adverse Reaction, Unknown , 07/16/17) MRSA (wound) 07/2014; MRSA (leg abscess)-09/11/16 Reported Meds & Prescriptions Reported Meds & Active Scripts Active Mupirocin Topical (Mupirocin) 2 % Oint 1 Applic TOPICAL BID Keflex (Cephalexin) 500 Mg Capsule 500 Mg PO Q6H 10 Days Bactrim DS (Sulfamethoxazole-Trimethoprim) 800-160 Mg Tab 1 Tab PO BID Lamictal (Lamotrigine) 25 Mg Tab 50 Mg PO DAILY Hydroxyzine Pamoate 50 Mg Cap 50 Mg PO Q6H PRN Klonopin (Clonazepam) 1 Mg Tab 1 Mg PO QID Buprenorphine (Buprenorphine HCl) 8 Mg Subl 8 Mg SL BID Reported Vitamins 0.8 mg ( Multivit-Min W/Fe-FA) 1 Tab Tab Review of Systems Except as stated in HPI: all other systems reviewed are Neg Physical Exam Narrative GENERAL: Well-nourished, well-developed female patient, afebrile. SKIN: Focused skin assessment warm/dry. Patient some mild induration just below the left nostril with erythema and swelling that extends just around this area. No erythema, lumps noted to left breast. No evidence of cellulitis or breast abscess. HEAD: Normocephalic. Atraumatic. EYES: No scleral icterus. No injection or drainage. NECK: Supple, trachea midline. No JVD or lymphadenopathy. CARDIOVASCULAR: Regular rate and rhythm without murmurs, gallops, or rubs. RESPIRATORY: Breath sounds equal bilaterally. No accessory muscle use. Lungs sounds are clear to auscultation. GASTROINTESTINAL: Abdomen soft, non-tender, nondistended. MUSCULOSKELETAL: No cyanosis, or edema. BACK: Nontender without obvious deformity. No CVA tenderness. Data Data Last Documented VS Vital Signs Date Time Temp Pulse Resp B/P (MAP) Pulse Ox O2 Delivery O2 Flow Rate FiO2 07/16/17 21:33 98.6 112 18 148/82 (104) 97 Room Air Orders Orders Lidocaine 1% Inj (50 Ml) (Xylocaine 1% I (07/16/17 22:00) Wound Culture And Gram Stain (07/16/17 21:59) Sulfamet-Trimeth Ds 800-160 Mg (Bactrim (07/16/17 22:00) Cephalexin (Keflex) (07/16/17 22:00) Ed Discharge Order (07/16/17 22:26) [facility] Medical Decision Making Medical Screen Exam Complete: Yes Emergency Medical Condition: Yes Medical Record Reviewed: Yes Differential Diagnosis Abscess versus cellulitis versus cyst Narrative Course 32-year-old female presents to the emergency department for 2 separate issues. First, she states that she had a pustule just below her left nostril she tried to pop and now has surrounding erythema. I discussed injecting with lidocaine and making a small incision to drain. She agrees to this. Unfortunately, very mild drainage was obtained. I attempted culture. No emergent abnormalities, left breast. She states that she follows with Dr. Smith. I instructed her to follow back up with Dr. Smith for further evaluation of the left breast. She verbalizes agreement. She is given first dose of Bactrim and Keflex in the emergency department. She'll be discharged with prescriptions for the same. She is to return here for any acute worsening of symptoms. The patient was discharged in stable condition with instructions, including return instructions and follow up instructions. Procedures Procedure Narrative INCISION AND DRAINAGE OF ABSCESS: The area was prepped and was sterilely draped. A subcutaneous wheal of 1% Xylocaine with a total number 1 mL was used to anesthetize the area. The area was properly anesthetized. A number 11 scalpel was used to make a pinpoint incision across the area of the abscess. Cultures were obtained. The abscess was drained an irrigated with normal saline. Sterile dressing applied. Diagnosis Primary Impression: Cellulitis Qualified Codes: L03.211 - Cellulitis of face Referrals: Primary Care Physician call for appointment Patient Instructions: Cellulitis (ED), General Instructions Additional Instructions: Take antibiotics as directed until gone. Bactrim is free at [facility]. Keflex is $4 at [facility]. Use prescribed mupirocin ointment to area. Follow-up with your primary care physician. Return to the emergency department for any acute worsening of symptoms. Med/Other Pt SpecificInfo: Prescription(s) given Scripts Mupirocin Topical (Mupirocin Topical) 2 % Oint 1 APPLIC TOPICAL BID for Mgmt Bacterial Infection, #1 TUBE 0 Refills Prov: María Price 07/16/17 Cephalexin (Keflex) 500 Mg Capsule 500 MG PO Q6H for Infection for 10 Days, #40 CAP 0 Refills Prov: María Price 07/16/17 Sulfamethoxazole-Trimethoprim (Bactrim DS) 800-160 Mg Tab 1 TAB PO BID for Infection, #20 TAB 0 Refills Prov: María Price 07/16/17 Disposition: 01 DISCHARGE HOME Condition: Stable María Price Jul 16, 2017 22:07
== END 2017-07-16 22:45 | disposition home or self-care (01) ==
LOC: NEPC 21:32
DX: L03.211 Cellulitis of face (principal); N64.4 Mastodynia; N63.0 Unspecified lump in unspecified breast; F41.9 Anxiety disorder, unspecified; F32.9 Major depressive disorder, single episode, unspecified; R56.9 Unspecified convulsions; F17.210 Nicotine dependence, cigarettes, uncomplicated; Z79.899 Other long term (current) drug therapy; Z88.6 Allergy status to analgesic agent
CPT/HCPCS: 10060; 86403; 87070; 87186; 87205